=== PATIENT | female | born 1940 | race Caucasian/White ===

== ENCOUNTER → 2020-06-25 13:20 | Outpatient (BNVA) | payer MEDICARE, OTHER, SELFPAY | PROVIDERS: PCP Nurse Practitioner; Referring Provider Nurse Practitioner; Visit Provider Student in an Organized Health Care Education/Training Program | DX: M35.3 Polymyalgia rheumatica (principal); Z79.52 Long term (current) use of systemic steroids | CPT/HCPCS: 99202 ==

== ENCOUNTER → 2020-07-09 13:41 | Outpatient (BNVA) | payer MEDICARE, OTHER, SELFPAY | PROVIDERS: PCP Internal Medicine; Visit Provider Student in an Organized Health Care Education/Training Program | DX: M35.3 Polymyalgia rheumatica (principal); Z79.52 Long term (current) use of systemic steroids | CPT/HCPCS: 99212 ==

== ENCOUNTER → 2020-09-10 14:49 | Outpatient (BNVA) | payer MEDICARE, OTHER, SELFPAY | PROVIDERS: PCP Internal Medicine; Visit Provider Student in an Organized Health Care Education/Training Program | DX: M35.3 Polymyalgia rheumatica (principal); Z79.52 Long term (current) use of systemic steroids | CPT/HCPCS: Q3014 ==

== ENCOUNTER → 2020-11-28 11:04 | Outpatient (BNVA) | payer MEDICARE, OTHER, SELFPAY | PROVIDERS: Visit Provider Student in an Organized Health Care Education/Training Program | DX: M35.3 Polymyalgia rheumatica (principal); Z79.52 Long term (current) use of systemic steroids | CPT/HCPCS: 99212 ==

== ENCOUNTER → 2021-01-02 10:28 | Outpatient (BNVA) | payer MEDICARE, OTHER, SELFPAY | PROVIDERS: PCP Internal Medicine; Visit Provider Student in an Organized Health Care Education/Training Program | DX: M35.3 Polymyalgia rheumatica (principal); Z79.52 Long term (current) use of systemic steroids | CPT/HCPCS: 99212 ==

== ENCOUNTER → 2021-02-19 14:54 | Outpatient (BNVA) | payer MEDICARE, OTHER, SELFPAY | PROVIDERS: PCP Internal Medicine; Visit Provider Student in an Organized Health Care Education/Training Program | DX: M35.3 Polymyalgia rheumatica (principal); I48.91 Unspecified atrial fibrillation; I50.9 Heart failure, unspecified; I10 Essential (primary) hypertension; R94.5 Abnormal results of liver function studies; Z88.1 Allergy status to other antibiotic agents; Z91.041 Radiographic dye allergy status; Z79.52 Long term (current) use of systemic steroids; Z79.01 Long term (current) use of anticoagulants; Z79.899 Other long term (current) drug therapy | CPT/HCPCS: 99212 ==

== ENCOUNTER 2023-08-11 09:06 | Outpatient (REF) | payer MEDICARE, OTHER, SELFPAY ==
[2023-08-13 13:24] LABS: Myeloperoxidase Antibody <1.0 AI; Proteinase 3 PR3 Antibodies <1.0 AI
[2023-08-13 21:04] LABS: Prot Elec - Alpha1 0.3 g/dL (0.2-0.3); Prot Elec - Alpha2 0.9 g/dL (0.5-0.9); Prot Elec - Beta 1 0.5 g/dL (0.4-0.6); Prot Elec - Beta 2 0.5 g/dL (0.2-0.5); Prot Elec - Gamma 1.1 g/dL (0.8-1.7); Prot Elec - Total Protein 7.2 g/dL (6.1-8.1)
[2023-08-16 12:54] LABS: IgA 399 mg/dL (70-320); IgG 1122 mg/dL (600-1540); IgM 98 mg/dL (50-300)
== END 2023-08-11 09:07 | disposition home or self-care (01) ==
LOC: HO.LAB 09:06
PROVIDERS: PCP Internal Medicine; Visit Provider Student in an Organized Health Care Education/Training Program
DX: M35.3 Polymyalgia rheumatica (principal); R73.03 Prediabetes; I77.6 Arteritis, unspecified; R79.89 Other specified abnormal findings of blood chemistry; Z11.7 Encounter for testing for latent tuberculosis infection; Z11.59 Encounter for screening for other viral diseases; Z72.89 Other problems related to lifestyle; Z79.52 Long term (current) use of systemic steroids; Z79.01 Long term (current) use of anticoagulants; Z79.899 Other long term (current) drug therapy
CPT/HCPCS: 36415; 80053; 82085; 82550; 82784; 82977; 83036; 83615; 84165; 85025; 85652; 86021; 86140; 86200; 86334; 86431; 86481; 86704; 86706; 86709; 86803; 87340; 99212

== ENCOUNTER 2023-08-11 09:06 | Outpatient (AMB) | payer MEDICARE, OTHER, SELFPAY ==
--- NOTE | 2023-08-11 09:15 | A.OFFVIS_ITS ---
Intake Vital Signs 08/11/23 09:17 Height 5 ft 1.14 in Weight 204 lb 5.896 oz BMI 38.4 BP 136/64 Blood Pressure Location Rt brachial Position Sitting Pulse 53 Pulse Source Pulse Oximeter Pulse Oximetry (%) 98 Intake Visit Reasons: PMR Intake Note: Pt last seen by Dr Little on 02/19/21 presents today for consult to discuss PMR and concerns with prednisone. Saw PCP in June she was having trouble walking, joint pain, and elevated inflam markers. She is on prednsione 20mg. 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 Accompanied by: Spouse Allergies ciprofloxacin [Cipro] Allergy (Intermediate, Verified 08/11/23 09:19) rash CAT SCAN IV CONTRAST Allergy (Intermediate, Uncoded 08/11/23 09:19) rash Erythromycin Allergy (Intermediate, Uncoded 08/11/23 09:19) Rash Medication List - Last Reconciled 08/11/23 by Aleah Patricia MD alendronate 70 mg PO QWEEK atorvastatin 40 mg PO DAILY cetirizine (Zyrtec) 10 mg PO DAILY cholecalciferol (vitamin D3) 100 mcg PO DAILY ferrous sulfate (Feosol) 325 mg PO .twice a week furosemide 20 mg PO .three times a day lansoprazole 30 mg PO DAILY losartan 50 mg PO BID miscellaneous medical supply 1 ea miscellaneous DAILY potassium chloride ER (Klor-Con M) 20 mEq PO DAILY prednisone 20 mg PO DAILY warfarin 5 mg PO DAILY warfarin 2.5 mg PO Q OTHER DAY HPI HPI Comments History of Present Illness Details This is an 83-year-old female with PMR who presents for follow-up. She was last seen by Dr. Little in 2020. Patient was diagnosed with PMR around 2014. She went into remission in 2016 and had another flare in 2019. Off prednisone in 2020. Back in June patient started having pain and stiffness of her shoulders as well as her thighs associated with weakness and imbalance. Her labs showed elevated inflammatory markers and she was started on prednisone taper, starting at 40 mg daily. Repeat labs 07/27 showed persistence of elevated inflammatory markers and her PCP advised her to remain on prednisone 20 mg daily. She states that she feels more than 50% improved overall but continues to have bilateral thigh weakness, stiffness as well as generalized morning stiffness lasting 1-2 hours she denies any headaches. Denies blurry vision. Denies any fevers or rashes, no peripheral arthritis symptoms. Previous history by Dr. Little Pt states that she woke up one morning in December 2019 with pain and stiffness in her legs. Had labs done by her PCP which showed elevated ESR in the 80's. Pt was started on Prednisone 15mg daily with improvement in her symptoms and inflammatory markers. Pt is currently on 12.5mg Prednisone daily since April. No pain or stiffness in her shoulders but does have pain and stiffness in her hips and legs. States that she feels fatigued, shaky on her legs. Currently undergoing Physical Therapy twice per week and cardiac therapy twice weekly. Pt denies any visual disturbances, jaw claudication, temporal headaches. Patient has a history of heart failure and is currently being followed by Cardiology for aortic stenosis. No family history of RA or SLE LABS (01/27) CRP 12.8 ESR 16 (12/2020) ESR 14 CRP 1.2 (10/2020) CRP 11.15 ESR 20 (08/2020) CRP 0.9 ESR 12 (06/2020) CMP nl CBC nl Hgb 11.2 ESR 25 CRP 1.3 SPEP nl Immunofixation nl RF neg CCP weak pos PFSH Medical History custodial systemic steroid user Polymyalgia rheumatica Elevated LFTs Right knee meniscal tear Barretts esophagus Sleep apnea Osteopenia Congestive heart failure HTN (hypertension) Polymyalgia Atrial fibrillation Surgical History Aortic valve replaced Hx of tonsillectomy History of cardiac radiofrequency ablation Hx of oophorectomy Family History Father HTN (hypertension) CVD (cardiovascular disease) Mother Stroke Social History Alcohol intake: never Patient Tobacco Use Status: Never used Tobacco e-Cigarette/Vaping Use: Never Used Review of Systems Const Denies fever(s), Denies headache(s) and Reports weight gain Eyes Denies blurry vision ENT Denies headache(s) Musc Reports arthralgias, Reports muscle weakness and Reports stiffness Neuro Denies headache(s) Physical Exam Vital Signs: Last Vital Signs Pulse 53 08/11/23 09:17 BP 136/64 08/11/23 09:17 Pulse Ox 98 08/11/23 09:17 BMI result Body Mass Index 38.4 Const General: cooperative, healthy appearing and comfortable Nutritional Appearance: obese morbidly obese Orientation/consciousness: patient oriented x3 Limitations: no limitations HEENT Other: No temporal area tenderness bilaterally Head: Yes normocephalic and Yes atraumatic Resp Effort & Inspection: normal respiratory effort and able to speak in complete sentences Auscultation: clear to auscultation bilaterally Cardio Rate: regular rate Rhythm: abnormal rhythm Skin General skin exam: no rashes or lesions noted Neuro General: patient oriented x3 Extrem Other: Osteoarthritic changes of both hands with no active synovitis Normal range of motion of shoulders without pain Negative for rotator cuff provocative maneuvers bilaterally muscle strength 5/5 proximally upper extremities Hip flexor 4+ out of 5 bilaterally Negative straight leg raise test bilaterally Assessment & Plan Assessment & Plan (1) Polymyalgia rheumatica: Comment: dx around 2014 ttt PDN remission off PDN 2017 recurrence 2019 ttt PDN remission 05/2021 recurrene 06/2023 PDN restarted Code(s): M35.3 - Polymyalgia rheumatica Plan: This is an 83-year-old female with PMR who presents for follow-up. She was last seen by Dr. Little in 2020. Back in June patient started having PMR recurrence symptoms with elevated inflammatory markers and started on prednisone by her PCP with at least 50% improvement. Upon evaluation today patient continues to have some residua pain and stiffness. Mild weakness of hip flexors. Will check disease activity labs. Continue with prednisone 20 mg daily. Follow-up in 3 weeks (2) custodial systemic steroid user: Code(s): Z79.52 - custodial (current) use of systemic steroids Plan: On alendronate (3) Elevated LFTs: Code(s): R79.89 - Other specified abnormal findings of blood chemistry Plan: Will check Plan I spent 47 minutes reviewing patient's chart, evaluating patient, ordering diagnostic workup, counseling patient and documenting in the chart Orders: Orders Immunofixation Pnl, Serum Today M35.3 - Polymyalgia rheumatica Protein Electrophoresis, Serum Today M35.3 - Polymyalgia rheumatica Hemoglobin A1c Today R73.03 - Prediabetes Lactate Dehydrogenase Today M35.3 - Polymyalgia rheumatica Complete Blood Count Auto Diff Today M35.3 - Polymyalgia rheumatica Comprehensive Met. Panel Today M35.3 - Polymyalgia rheumatica C Reactive Protein Today M35.3 - Polymyalgia rheumatica ANCA Vasculitides Today I77.6 - Arteritis, unspecified Hepatitis A,B,C Profile Today Z11.59 - Encounter for screening for other viral diseases T Spot TB Today Z11.7 - Encounter for testing for latent tuberculosis infection Creatine Kinase Total Today M35.3 - Polymyalgia rheumatica Aldolase Today R79.89 - Other specified abnormal findings of blood chemistry Erythrocyte Sedimentation Rate Today M35.3 - Polymyalgia rheumatica Rheumatoid Factor Today M35.3 - Polymyalgia rheumatica Gamma Glutamyl Transpeptidase Today M35.3 - Polymyalgia rheumatica Cyclic Citrullinated Peptide Today M35.3 - Polymyalgia rheumatica Medications: New prednisone 20 mg PO DAILY 28 tabs 0RF Coding Level of Care Code Est Pt Level 5 (47517) Diagnoses Polymyalgia rheumatica M35.3 custodial systemic steroid user Z79.52 Elevated LFTs R79.89
[2023-08-11 09:17] VITALS: BP 136/64; PULSE 53; O2SAT 98; BMI 38.4
== END 2023-08-11 10:01 | disposition home or self-care (01) ==
PROVIDERS: PCP Internal Medicine; Visit Provider Student in an Organized Health Care Education/Training Program
DX: M35.3 Polymyalgia rheumatica (principal); Z79.52 Long term (current) use of systemic steroids; R79.89 Other specified abnormal findings of blood chemistry
CPT/HCPCS: 99215

== ENCOUNTER 2023-09-01 11:24 | Outpatient (AMB) | payer MEDICARE, OTHER, SELFPAY ==
--- NOTE | 2023-09-01 11:31 | A.OFFVIS_ITS ---
Intake Vital Signs 09/01/23 11:38 Height 5 ft 1.14 in Weight 205 lb 7.533 oz BMI 38.6 BP 160/72 H Blood Pressure Location Lt brachial Position Sitting Pulse 73 Pulse Source Pulse Oximeter Temp 97 F Temp Source Skin Pulse Oximetry (%) 97 Oxygen Delivery Method Room Air Intake Visit Reasons: PMR Intake Note: Patient last seen 08/11/23 presents today for follow up and test results. 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 by: Self / Same As Patient Allergies ciprofloxacin [Cipro] Allergy (Intermediate, Verified 09/01/23 11:39) rash CAT SCAN IV CONTRAST Allergy (Intermediate, Uncoded 09/01/23 11:39) rash Erythromycin Allergy (Intermediate, Uncoded 09/01/23 11:39) Rash Medication List - Last Reconciled 09/01/23 by Aleah Patricia MD alendronate 70 mg PO QWEEK atorvastatin 40 mg PO DAILY cetirizine (Zyrtec) 10 mg PO DAILY cholecalciferol (vitamin D3) 100 mcg PO DAILY ferrous sulfate (Feosol) 325 mg PO .twice a week furosemide 20 mg PO .three times a day lansoprazole 30 mg PO DAILY losartan 50 mg PO BID miscellaneous medical supply 1 ea miscellaneous DAILY potassium chloride ER (Klor-Con M) 20 mEq PO DAILY prednisone Take 3.5 tabs daily for 3 weeks then remain on 3 tabs daily warfarin 5 mg PO DAILY warfarin 2.5 mg PO Q OTHER DAY HPI HPI Comments History of Present Illness Details This is an 83-year-old female with PMR who presents for follow-up. On prednisone 20 mg daily. Feels better overall in terms of her mobility, joint pain and stiffness. Gets intermittent bilateral thigh and knee weakness. Feels that she has a ton of energy on prednisone. Would like to go down. Previous history by Dr. Little Pt states that she woke up one morning in December 2019 with pain and stiffness in her legs. Had labs done by her PCP which showed elevated ESR in the 's. Pt was started on Prednisone 15mg daily with improvement in her symptoms and inflammatory markers. Pt is currently on 12.5mg Prednisone daily since April. No pain or stiffness in her shoulders but does have pain and stiffness in her hips and legs. States that she feels fatigued, shaky on her legs. Currently undergoing Physical Therapy twice per week and cardiac therapy twice weekly. Pt denies any visual disturbances, jaw claudication, temporal headaches. Patient has a history of heart failure and is currently being followed by Cardiology for aortic stenosis. 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 Polymyalgia rheumatica Elevated LFTs Right knee meniscal tear Barretts esophagus Sleep apnea Osteopenia Congestive heart failure HTN (hypertension) Polymyalgia Atrial fibrillation Surgical History Aortic valve replaced Hx of tonsillectomy History of cardiac radiofrequency ablation Hx of oophorectomy Family History Father HTN (hypertension) CVD (cardiovascular disease) Mother Stroke Social History Alcohol intake: never Patient Tobacco Use Status: Never used Tobacco e-Cigarette/Vaping Use: Never Used Review of Systems Musc Denies arthralgias and Denies stiffness Physical Exam Const General: cooperative, healthy appearing and comfortable Nutritional Appearance: obese morbidly obese Orientation/consciousness: patient oriented x3 Limitations: no limitations HEENT Other: No temporal area tenderness bilaterally Head: Yes normocephalic and Yes atraumatic Resp Effort & Inspection: normal respiratory effort and able to speak in complete sentences Auscultation: clear to auscultation bilaterally Cardio Rate: regular rate Rhythm: abnormal rhythm Skin General skin exam: no rashes or lesions noted Neuro General: patient oriented x3 Extrem Other: Osteoarthritic changes of both hands with no active synovitis Normal range of motion of shoulders without pain Negative for rotator cuff provocative maneuvers bilaterally muscle strength 5/5 proximally upper extremities Hip flexor 5/5 bilaterally Negative straight leg raise test bilaterally Assessment & Plan Assessment & Plan (1) Polymyalgia rheumatica: Comment: dx around 2014 ttt PDN remission off PDN 2017 recurrence 2020 ttt PDN remission 05/2021 recurrene 06/2023 PDN restarted Code(s): M35.3 - Polymyalgia rheumatica Plan: This is an 83-year-old female with PMR who presents for follow-up. On prednisone 20 mg daily with significant symptomatic improvement. Check labs today Reduce prednisone to 17.5 mg daily for 3 weeks then 15 mg daily for 3 weeks Follow-up in 6 weeks. (2) Elevated LFTs: Code(s): R79.89 - Other specified abnormal findings of blood chemistry Plan: Will monitor periodically Plan I spent 22 minutes reviewing patient's chart, evaluating patient, ordering diagnostic workup, counseling patient and documenting in the chart Orders: Orders Complete Blood Count Auto Diff Today M35.3 - Polymyalgia rheumatica C Reactive Protein Today M35.3 - Polymyalgia rheumatica Complete Blood Count Auto Diff 6 Weeks M35.3 - Polymyalgia rheumatica Comprehensive Met. Panel 6 Weeks M35.3 - Polymyalgia rheumatica Erythrocyte Sedimentation Rate 6 Weeks M35.3 - Polymyalgia rheumatica Comprehensive Met. Panel Today M35.3 - Polymyalgia rheumatica Erythrocyte Sedimentation Rate Today M35.3 - Polymyalgia rheumatica C Reactive Protein 6 Weeks M35.3 - Polymyalgia rheumatica Medications: New prednisone Take 3.5 tabs daily for 3 weeks then remain on 3 tabs daily 137 tabs 0RF Discontinued prednisone Discontinued Reason: Doctor's Order 20 mg PO DAILY 28 tabs 0RF Coding Level of Care Code Est Pt Level 4 (98145) Diagnoses Polymyalgia rheumatica M35.3 Elevated LFTs R79.89
[2023-09-01 11:38] VITALS: BP 160/72; PULSE 73; TEMP 36.1; O2SAT 97; BMI 38.6
== END 2023-09-01 11:53 | disposition home or self-care (01) ==
PROVIDERS: PCP Internal Medicine; Visit Provider Student in an Organized Health Care Education/Training Program
DX: M35.3 Polymyalgia rheumatica (principal); R79.89 Other specified abnormal findings of blood chemistry
CPT/HCPCS: 99214

== ENCOUNTER → 2023-09-01 11:24 | Outpatient (BNVA) | payer MEDICARE, OTHER, SELFPAY | PROVIDERS: PCP Internal Medicine; Visit Provider Student in an Organized Health Care Education/Training Program | DX: R79.89 Other specified abnormal findings of blood chemistry (principal); M35.3 Polymyalgia rheumatica | CPT/HCPCS: 36415; 80053; 85025; 85652; 86140; 99212 ==

== ENCOUNTER 2023-09-01 11:58 | Outpatient (REF) | payer MEDICARE, OTHER, SELFPAY ==
[2023-09-01 13:01] LABS: MANUAL DIFF FLAG NO
[2023-09-01 13:03] LABS: Basophils Absolute Auto 0.1 X10*3/uL (0.0-0.2); Basophils Percent Auto 0.4 % (0-2); Eosinophils Absolute Auto 0.2 X10*3/uL (0.0-0.4); Eosinophils Percent Auto 1.2 % (0-4); Hematocrit 38.2 % (37.0-47.0); Hemoglobin 12.1 g/dl (12.0-16.0); Imm Gran Abs Auto 0.05 X10*3/uL (0.00-0.03); Imm Gran Pct Auto 0.4 % (0.0-0.4); Lymphocytes Absolute Auto 1.3 X10*3/uL (1.2-4.9); Lymphocytes Percent Auto 9.5 % (20-40); Mean Corpuscular HGB Conc 31.7 g/dl (31.0-35.0); Mean Corpuscular Hemoglobin 27.9 pg (27.0-33.0); Mean Platelet Volume 11.1 fL (9.4-12.3); Monocytes Percent Auto 7.1 % (2-11); Neutrophils Absolute Auto 11.1 x10*3/uL (2.0-8.3); Neutrophils Percent Auto 81.4 % (45-73); Platelet Count 186 X10*3/uL (160-400); Red Blood Count 4.34 X10*6/uL (4.20-5.50); Red Cell Distribution Width 17.5 % (11.0-16.0); White Blood Count 13.6 X10*3/uL (4.8-10.8)
[2023-09-01 13:35] LABS: Alanine Aminotransferase 33 U/L (0-31); Albumin Level 4.1 g/dL (3.5-5.0); Alkaline Phosphatase 39 U/L (39-117); Anion Gap 15 (12-20); Aspartate Amino Transferase 19 U/L (5-31); Bilirubin Total 1.1 mg/dL (0.0-1.0); Blood Urea Nitrogen 29 mg/dL (9-16); C Reactive Protein 0.88 mg/dL (< or = 0.50); Calcium 9.7 mg/dL (8.4-10.2); Carbon Dioxide 30 mmol/L (22-29); Chloride 103 mmol/L (96-108); Estimated Glomerular Filt Rate 59; Glucose Random 103 mg/dL (60-115); Potassium 4.4 mmol/L (3.3-5.1); Sodium 144 mmol/L (135-145); Total Protein 7.3 g/dL (6.5-8.0)
[2023-09-01 13:51] LABS: Erythrocyte Sedimentation Rate 23 MM/HR (0-20)
== END 2023-09-01 11:59 | disposition home or self-care (01) ==
LOC: HO.10HDL 11:58
PROVIDERS: Visit Provider Student in an Organized Health Care Education/Training Program
DX: Z13.89 Encounter for screening for other disorder (principal)
CPT/HCPCS: 36415; 80053; 85025; 85652; 86140

== ENCOUNTER 2023-10-18 11:15 | Outpatient (REF) | payer MEDICARE, OTHER, SELFPAY ==
[2023-10-18 14:16] LABS: MANUAL DIFF FLAG NO
[2023-10-18 14:29] LABS: Basophils Percent Auto 0.3 % (0-2); Eosinophils Absolute Auto 0.1 X10*3/uL (0.0-0.4); Hematocrit 38.5 % (37.0-47.0); Hemoglobin 12.1 g/dl (12.0-16.0); Imm Gran Pct Auto 0.8 % (0.0-0.4); Lymphocytes Absolute Auto 1.8 X10*3/uL (1.2-4.9); Lymphocytes Percent Auto 13.9 % (20-40); Mean Corpuscular HGB Conc 31.4 g/dl (31.0-35.0); Mean Corpuscular Hemoglobin 27.6 pg (27.0-33.0); Mean Corpuscular Volume 87.7 fL (80.0-98.0); Monocytes Absolute Auto 0.9 X10*3/uL (0.1-1.2); Monocytes Percent Auto 6.6 % (2-11); Neutrophils Percent Auto 77.4 % (45-73); Platelet Count 253 X10*3/uL (160-400); Red Blood Count 4.39 X10*6/uL (4.20-5.50); Red Cell Distribution Width 16.2 % (11.0-16.0); White Blood Count 12.9 X10*3/uL (4.8-10.8)
[2023-10-18 15:01] LABS: Alanine Aminotransferase 37 U/L (0-31); Alkaline Phosphatase 33 U/L (39-117); Anion Gap 12 (12-20); Aspartate Amino Transferase 30 U/L (5-31); Bilirubin Total 0.5 mg/dL (0.0-1.0); Blood Urea Nitrogen 26 mg/dL (9-16); C Reactive Protein 0.92 mg/dL (< or = 0.50); Calcium 9.4 mg/dL (8.4-10.2); Carbon Dioxide 32 mmol/L (22-29); Chloride 106 mmol/L (96-108); Estimated Glomerular Filt Rate > 60; Glucose Random 87 mg/dL (60-115); Potassium 3.7 mmol/L (3.3-5.1); Sodium 146 mmol/L (135-145); Total Protein 7.3 g/dL (6.5-8.0)
[2023-10-18 15:19] LABS: Erythrocyte Sedimentation Rate 30 MM/HR (0-20)
== END 2023-10-18 11:16 | disposition home or self-care (01) ==
LOC: HO.WFDLDS 11:15
PROVIDERS: Visit Provider Student in an Organized Health Care Education/Training Program
DX: M35.3 Polymyalgia rheumatica (principal)
CPT/HCPCS: 36415; 80053; 85025; 85652; 86140

== ENCOUNTER 2023-10-19 12:22 | Outpatient (AMB) | payer MEDICARE, OTHER, SELFPAY ==
--- NOTE | 2023-10-19 12:37 | A.OFFVIS_ITS ---
Intake Vital Signs 10/19/23 12:39 Height 5 ft 1 in Weight 209 lb 10.554 oz BMI 39.6 BP 164/72 H Blood Pressure Location Lt brachial Position Sitting Pulse 85 Pulse Source Pulse Oximeter Pulse Oximetry (%) 98 Oxygen Delivery Method Room Air Intake Visit Reasons: PMR Intake Note: Patient last seen 09/01/23 presents today for follow up and test results. 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 by: Self / Same As Patient Allergies ciprofloxacin [Cipro] Allergy (Intermediate, Verified 10/19/23 12:43) rash CAT SCAN IV CONTRAST Allergy (Intermediate, Uncoded 10/19/23 12:43) rash Erythromycin Allergy (Intermediate, Uncoded 10/19/23 12:43) Rash Medication List - Last Reconciled 10/19/23 by Aleah Patricia MD alendronate 70 mg PO QWEEK atorvastatin 40 mg PO DAILY cetirizine (Zyrtec) 10 mg PO DAILY cholecalciferol (vitamin D3) 100 mcg PO DAILY ferrous sulfate (Feosol) 325 mg PO .twice a week furosemide 20 mg PO .three times a day lansoprazole 30 mg PO DAILY losartan 50 mg PO BID miscellaneous medical supply 1 ea miscellaneous DAILY potassium chloride ER (Klor-Con M) 20 mEq PO DAILY prednisone 15 mg (3 x 5 mg) PO DAILY warfarin 5 mg PO DAILY warfarin 2.5 mg PO Q OTHER DAY HPI HPI Comments History of Present Illness Details This is an 83-year-old female with PMR who presents for follow-up. On prednisone 15 mg daily. Patient states that she continues to feel about the same. She continues to have bilateral thigh achiness. Generalized morning stiffness lasting 1 hour. She continues to gain weight. She feels very hungry on the prednisone. She had COVID infection about 2 weeks ago, got a home test and received Paxlovid. She was having a cough for a few days. She denies history of diverticulitis Previous history by Dr. Little Pt states that she woke up one morning in December 2019 with pain and stiffness in her legs. Had labs done by her PCP which showed elevated ESR in the 80's. Pt was started on Prednisone 15mg daily with improvement in her symptoms and inflammatory markers. Pt is currently on 12.5mg Prednisone daily since April. No pain or stiffness in her shoulders but does have pain and stiffness in her hips and legs. States that she feels fatigued, shaky on her legs. Currently undergoing Physical Therapy twice per week and cardiac therapy twice weekly. Pt denies any visual disturbances, jaw claudication, temporal headaches. Patient has a history of heart failure and is currently being followed by Cardiology for aortic stenosis. 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 Polymyalgia rheumatica Elevated LFTs Right knee meniscal tear Barretts esophagus Sleep apnea Osteopenia Congestive heart failure HTN (hypertension) Polymyalgia Atrial fibrillation Surgical History Aortic valve replaced Hx of tonsillectomy History of cardiac radiofrequency ablation Hx of oophorectomy Family History Father HTN (hypertension) CVD (cardiovascular disease) Mother Stroke Social History Alcohol intake: never Patient Tobacco Use Status: Never used Tobacco e-Cigarette/Vaping Use: Never Used Review of Systems [facility] [place] Reports arthralgias and Reports stiffness Physical Exam Vital Signs: Last Vital Signs Pulse 85 10/19/23 12:39 BP 164/72 H 10/19/23 12:39 Pulse Ox 98 10/19/23 12:39 Oxygen Delivery Method Room Air 10/19/23 12:39 BMI result Body Mass Index 39.6 Const General: cooperative, healthy appearing and comfortable Nutritional Appearance: obese morbidly obese Orientation/consciousness: patient oriented x3 Limitations: no limitations HEENT Other: No temporal area tenderness bilaterally Head: Yes normocephalic and Yes atraumatic Resp Effort & Inspection: normal respiratory effort and able to speak in complete sentences Auscultation: clear to auscultation bilaterally Cardio Rate: regular rate Rhythm: abnormal rhythm Skin General skin exam: no rashes or lesions noted Neuro General: patient oriented x3 Extrem Other: Osteoarthritic changes of both hands with no active synovitis Normal range of motion of shoulders without pain Negative for rotator cuff provocative maneuvers bilaterally muscle strength 5/5 proximally upper extremities Hip flexor 5/5 bilaterally Negative straight leg raise test bilaterally Assessment & Plan Assessment & Plan (1) Polymyalgia rheumatica: Comment: dx around 2014 ttt PDN remission off PDN 2016 recurrence 2019 ttt PDN remission 05/2021 recurrene 06/2023 PDN restarted Code(s): M35.3 - Polymyalgia rheumatica Plan: This is an 83-year-old female with PMR who presents for follow-up. On prednisone 15 mg daily, she continues to have generalized morning stiffness, bilateral thigh achiness. Inflammatory markers remain elevated. She is having side effects of prednisone such as weight gain Will need to add DMARDs. Can not use methotrexate due to transaminitis. Discussed risks and benefits of Kevzara. Patient agreed to proceed. Will start prior authorization for Kevzara Reduce prednisone to 12.5 mg daily Labs before next visit in 4 weeks (2) Elevated LFTs: Code(s): R79.89 - Other specified abnormal findings of blood chemistry Plan: Slight bump in LFTs, potentially related to COVID infection or Paxlovid Will monitor periodically Plan I spent 22 minutes reviewing patient's chart, evaluating patient, ordering diagnostic workup, counseling patient and documenting in the chart Orders: Orders Erythrocyte Sedimentation Rate 4 Weeks M35.3 - Polymyalgia rheumatica Comprehensive Met. Panel 4 Weeks M35.3 - Polymyalgia rheumatica Complete Blood Count Auto Diff 4 Weeks M35.3 - Polymyalgia rheumatica C Reactive Protein 4 Weeks M35.3 - Polymyalgia rheumatica Medications: New prednisone 12.5 mg (5 x 2.5 mg) PO DAILY 150 tabs 0RF Discontinued prednisone Discontinued Reason: Doctor's Order 15 mg (3 x 5 mg) PO DAILY 18 tabs 0RF Coding Level of Care Code Est Pt Level 4 (56966) Diagnoses Polymyalgia rheumatica M35.3 Elevated LFTs R79.89
[2023-10-19 12:39] VITALS: BP 164/72; PULSE 85; O2SAT 98; BMI 39.6
== END 2023-10-19 13:04 | disposition home or self-care (01) ==
PROVIDERS: PCP Internal Medicine; Visit Provider Student in an Organized Health Care Education/Training Program
DX: M35.3 Polymyalgia rheumatica (principal); R79.89 Other specified abnormal findings of blood chemistry
CPT/HCPCS: 99214

== ENCOUNTER → 2023-10-19 12:22 | Outpatient (BNVA) | payer MEDICARE, OTHER, SELFPAY | PROVIDERS: PCP Internal Medicine; Visit Provider Student in an Organized Health Care Education/Training Program | DX: M35.3 Polymyalgia rheumatica (principal); R79.89 Other specified abnormal findings of blood chemistry | CPT/HCPCS: 99212 ==

== ENCOUNTER 2023-11-19 10:35 | Outpatient (REF) | payer MEDICARE, OTHER, SELFPAY ==
[2023-11-19 14:38] LABS: MANUAL DIFF FLAG NO
[2023-11-19 14:42] LABS: Basophils Absolute Auto 0.1 X10*3/uL (0.0-0.2); Basophils Percent Auto 0.4 % (0-2); Eosinophils Absolute Auto 0.1 X10*3/uL (0.0-0.4); Eosinophils Percent Auto 1.2 % (0-4); Hematocrit 38.8 % (37.0-47.0); Hemoglobin 12.2 g/dl (12.0-16.0); Imm Gran Abs Auto 0.07 X10*3/uL (0.00-0.03); Imm Gran Pct Auto 0.6 % (0.0-0.4); Lymphocytes Absolute Auto 1.7 X10*3/uL (1.2-4.9); Lymphocytes Percent Auto 15.1 % (20-40); Mean Corpuscular HGB Conc 31.4 g/dl (31.0-35.0); Mean Corpuscular Hemoglobin 27.9 pg (27.0-33.0); Mean Corpuscular Volume 88.6 fL (80.0-98.0); Mean Platelet Volume 11.6 fL (9.4-12.3); Neutrophils Absolute Auto 8.4 x10*3/uL (2.0-8.3); Neutrophils Percent Auto 73.7 % (45-73); Platelet Count 221 X10*3/uL (160-400); Red Blood Count 4.38 X10*6/uL (4.20-5.50); White Blood Count 11.4 X10*3/uL (4.8-10.8)
[2023-11-19 15:21] LABS: Erythrocyte Sedimentation Rate 30 MM/HR (0-20)
[2023-11-19 15:33] LABS: Alanine Aminotransferase 33 U/L (0-31); Alkaline Phosphatase 44 U/L (39-117); Anion Gap 16 (12-20); Aspartate Amino Transferase 23 U/L (5-31); Bilirubin Total 0.8 mg/dL (0.0-1.0); Blood Urea Nitrogen 26 mg/dL (9-16); C Reactive Protein 1.24 mg/dL (< or = 0.50); Calcium 9.1 mg/dL (8.4-10.2); Carbon Dioxide 24 mmol/L (22-29); Chloride 108 mmol/L (96-108); Estimated Glomerular Filt Rate > 60; Glucose Random 99 mg/dL (60-115); Potassium 3.5 mmol/L (3.3-5.1); Sodium 144 mmol/L (135-145); Total Protein 7.5 g/dL (6.5-8.0)
== END 2023-11-19 10:36 | disposition home or self-care (01) ==
LOC: HO.WFDLDS 10:35
PROVIDERS: Visit Provider Student in an Organized Health Care Education/Training Program
DX: M35.3 Polymyalgia rheumatica (principal)
CPT/HCPCS: 36415; 80053; 85025; 85652; 86140

== ENCOUNTER 2023-11-24 13:25 | Outpatient (AMB) | payer MEDICARE, OTHER, SELFPAY ==
--- NOTE | 2023-11-24 13:32 | MHC.OFFVIS ---
Intake Vital Signs 11/24/23 13:33 Height 5 ft 1 in Weight 216 lb 4.375 oz BMI 40.9 BP 140/62 H Blood Pressure Location Rt brachial Position Sitting Pulse 83 Pulse Source Pulse Oximeter Pulse Oximetry (%) 98 Oxygen Delivery Method Room Air Intake Visit Reasons: PMR Intake Note: Patient last seen 10/19/23 presents today for follow up and test results. Patient denies pain, however reports stiffness, issues with balance, SOB following with Dr Vahid Liz Has not started hi wanted to discuss further concerned with warnings Service Person Required: No Accompanied by: Self / Same As Patient Allergies ciprofloxacin [Cipro] Allergy (Intermediate, Verified 11/24/23 13:35) rash CAT SCAN IV CONTRAST Allergy (Intermediate, Uncoded 11/24/23 13:35) rash Erythromycin Allergy (Intermediate, Uncoded 11/24/23 13:35) Rash Medication List - Last Reconciled 11/24/23 by Aleah Patricia MD alendronate 70 mg PO QWEEK atorvastatin 40 mg PO DAILY cetirizine (Zyrtec) 10 mg PO DAILY cholecalciferol (vitamin D3) 100 mcg PO DAILY ferrous sulfate (Feosol) 325 mg PO .twice a week furosemide 20 mg PO .three times a day Kevzara (sarilumab) 200 mg (1.14 mL) subcut Q2W NS lansoprazole 30 mg PO DAILY losartan 50 mg PO BID miscellaneous medical supply 1 ea miscellaneous DAILY potassium chloride ER (Klor-Con M) 20 mEq PO DAILY prednisone 12.5 mg (5 x 2.5 mg) PO DAILY warfarin 5 mg PO DAILY warfarin 2.5 mg PO Q OTHER DAY HPI HPI Comments History of Present Illness Details This is an 83-year-old female with PMR who presents for follow-up. On prednisone 12.5 mg daily. She states that she has not in any pain but remains stiff for 1 hour in the mornings. 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 She states that she has been having difficulty with her balance recently. Previous history by Dr. Little Pt states that she woke up one morning in December 2019 with pain and stiffness in her legs. Had labs done by her PCP which showed elevated ESR in the 's. Pt was started on Prednisone 15mg daily with improvement in her symptoms and inflammatory markers. Pt is currently on 12.5mg Prednisone daily since April. No pain or stiffness in her shoulders but does have pain and stiffness in her hips and legs. States that she feels fatigued, shaky on her legs. Currently undergoing Physical Therapy twice per week and cardiac therapy twice weekly. Pt denies any visual disturbances, jaw claudication, temporal headaches. Patient has a history of heart failure and is currently being followed by Cardiology for aortic stenosis. No family history of RA or SLE LABS (01/27) CRP 12.8 ESR 16 (12/2020) ESR 14 CRP 1.2 (10/2020) CRP 11.15 ESR 20 (08/2020) CRP 0.9 ESR 12 (06/2020) CMP nl CBC nl Hgb 11.2 ESR 25 CRP 1.3 SPEP nl Immunofixation nl RF neg CCP weak pos PFSH Medical History alf systemic steroid user Polymyalgia rheumatica Elevated LFTs Right knee meniscal tear Barretts esophagus Sleep apnea Osteopenia Congestive heart failure HTN (hypertension) Polymyalgia Atrial fibrillation Surgical History Aortic valve replaced Hx of tonsillectomy History of cardiac radiofrequency ablation Hx of oophorectomy Family History Father HTN (hypertension) CVD (cardiovascular disease) Mother Stroke Social History Alcohol intake: never Patient Tobacco Use Status: Never used Tobacco e-Cigarette/Vaping Use: Never Used Review of Systems Musc Reports stiffness Physical Exam Vital Signs: Last Vital Signs Pulse 83 11/24/23 13:33 BP 140/62 H 11/24/23 13:33 Pulse Ox 98 11/24/23 13:33 Oxygen Delivery Method Room Air 11/24/23 13:33 BMI result Body Mass Index 40.9 Const General: cooperative, healthy appearing and comfortable Nutritional Appearance: obese morbidly obese Orientation/consciousness: patient oriented x3 Limitations: no limitations HEENT Other: No temporal area tenderness bilaterally Head: Yes normocephalic and Yes atraumatic Resp Effort & Inspection: normal respiratory effort and able to speak in complete sentences Auscultation: clear to auscultation bilaterally Cardio Rhythm: abnormal rhythm Skin General skin exam: no rashes or lesions noted Neuro General: patient oriented x3 Extrem Other: Osteoarthritic changes of both hands with no active synovitis Normal range of motion of shoulders without pain Negative for rotator cuff provocative maneuvers bilaterally muscle strength 5/5 proximally upper extremities Hip flexor 4+/5 on the right Negative straight leg raise test bilaterally Assessment & Plan Assessment & Plan (1) Polymyalgia rheumatica: Comment: dx around 2014 ttt PDN remission off PDN 2016 recurrence 2019 ttt PDN remission 05/2021 recurrene 06/2023 PDN restarted Code(s): M35.3 - Polymyalgia rheumatica Plan: This is an 83-year-old female with PMR who presents for follow-up. On prednisone 12.5 mg daily, she continues to have generalized morning stiffness, Inflammatory markers remain elevated. 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 Last visit, we had discussed risks and benefits of Kevzara. Patient agreed to proceed and it was approved but patient was worried about side effects so she did not started yet. Today we had a long conversation about risks and benefits of Kevzara. At this point patient has developed multiple side effects of steroids and her disease remains active. Kevzara is the best choice. Patient agrees to start it. Remain on prednisone 12.5 mg daily until 2 weeks after Kevzara injection then stay on 10 mg daily Other options would be low-dose methotrexate or leflunomide with careful LFT monitoring. Alternatively hydroxychloroquine can be tried Labs before next visit in 4 weeks (2) Elevated LFTs: Code(s): R79.89 - Other specified abnormal findings of blood chemistry Plan: Minimal elevation. Will monitor Plan I spent 47 minutes reviewing patient's chart, evaluating patient, ordering diagnostic workup, counseling patient and documenting in the chart Orders: Orders Comprehensive Met. Panel 4 Weeks M35.3 - Polymyalgia rheumatica, R79.89 - Other specified abnormal findings of blood chemistry C Reactive Protein 4 Weeks M35.3 - Polymyalgia rheumatica, R79.89 - Other specified abnormal findings of blood chemistry Complete Blood Count Auto Diff 4 Weeks M35.3 - Polymyalgia rheumatica, R79.89 - Other specified abnormal findings of blood chemistry Erythrocyte Sedimentation Rate 4 Weeks M35.3 - Polymyalgia rheumatica, R79.89 - Other specified abnormal findings of blood chemistry Coding Level of Care Code Est Pt Level 5 (18748) Diagnoses Polymyalgia rheumatica M35.3 Elevated LFTs R79.89
[2023-11-24 13:33] VITALS: BP 140/62; PULSE 83; O2SAT 98; BMI 40.9
== END 2023-11-24 14:09 | disposition home or self-care (01) ==
PROVIDERS: PCP Internal Medicine; Visit Provider Student in an Organized Health Care Education/Training Program
DX: M35.3 Polymyalgia rheumatica (principal); R79.89 Other specified abnormal findings of blood chemistry
CPT/HCPCS: 99214

== ENCOUNTER → 2023-11-24 13:25 | Outpatient (BNVA) | payer MEDICARE, OTHER, SELFPAY | PROVIDERS: PCP Internal Medicine; Visit Provider Student in an Organized Health Care Education/Training Program | DX: M35.3 Polymyalgia rheumatica (principal); R79.89 Other specified abnormal findings of blood chemistry; Z79.52 Long term (current) use of systemic steroids; Z79.01 Long term (current) use of anticoagulants; Z79.899 Other long term (current) drug therapy | CPT/HCPCS: 99212 ==

== ENCOUNTER → 2023-12-03 12:48 | Outpatient (BNVA) | payer MEDICARE, OTHER, SELFPAY | PROVIDERS: PCP Internal Medicine; Visit Provider Student in an Organized Health Care Education/Training Program ==

== ENCOUNTER 2023-12-20 11:47 | Outpatient (REF) | payer MEDICARE, OTHER, SELFPAY ==
[2023-12-20 14:28] LABS: MANUAL DIFF FLAG NO
[2023-12-20 14:42] LABS: Basophils Absolute Auto 0.1 X10*3/uL (0.0-0.2); Basophils Percent Auto 1.1 % (0-2); Eosinophils Absolute Auto 0.1 X10*3/uL (0.0-0.4); Eosinophils Percent Auto 1.5 % (0-4); Hematocrit 39.8 % (37.0-47.0); Hemoglobin 12.8 g/dl (12.0-16.0); Imm Gran Abs Auto 0.02 X10*3/uL (0.00-0.03); Imm Gran Pct Auto 0.4 % (0.0-0.4); Lymphocytes Absolute Auto 0.9 X10*3/uL (1.2-4.9); Lymphocytes Percent Auto 17.2 % (20-40); Mean Corpuscular HGB Conc 32.2 g/dl (31.0-35.0); Mean Corpuscular Hemoglobin 28.6 pg (27.0-33.0); Mean Corpuscular Volume 88.8 fL (80.0-98.0); Mean Platelet Volume 11.8 fL (9.4-12.3); Monocytes Absolute Auto 0.7 X10*3/uL (0.1-1.2); Monocytes Percent Auto 12.8 % (2-11); Neutrophils Absolute Auto 3.6 x10*3/uL (2.0-8.3); Platelet Count 153 X10*3/uL (160-400); Red Blood Count 4.48 X10*6/uL (4.20-5.50); Red Cell Distribution Width 16.1 % (11.0-16.0); White Blood Count 5.4 X10*3/uL (4.8-10.8)
[2023-12-20 15:10] LABS: Alanine Aminotransferase 25 U/L (0-31); Albumin Level 4.2 g/dL (3.5-5.0); Alkaline Phosphatase 35 U/L (39-117); Anion Gap 14 (12-20); Aspartate Amino Transferase 22 U/L (5-31); Bilirubin Total 1.1 mg/dL (0.0-1.0); Blood Urea Nitrogen 28 mg/dL (9-16); C Reactive Protein < 0.10 mg/dL (< or = 0.50); Calcium 9.1 mg/dL (8.4-10.2); Carbon Dioxide 27 mmol/L (22-29); Chloride 107 mmol/L (96-108); Estimated Glomerular Filt Rate > 60; Glucose Random 103 mg/dL (60-115); Potassium 3.3 mmol/L (3.3-5.1); Sodium 145 mmol/L (135-145); Total Protein 7.3 g/dL (6.5-8.0)
[2023-12-20 15:49] LABS: Erythrocyte Sedimentation Rate 9 MM/HR (0-20)
== END 2023-12-20 11:48 | disposition home or self-care (01) ==
LOC: HO.WFDLDS 11:47
PROVIDERS: Visit Provider Student in an Organized Health Care Education/Training Program
DX: M35.3 Polymyalgia rheumatica (principal); R79.89 Other specified abnormal findings of blood chemistry
CPT/HCPCS: 36415; 80053; 85025; 85652; 86140

== ENCOUNTER 2023-12-23 10:26 | Outpatient (AMB) | payer MEDICARE, OTHER, SELFPAY ==
--- NOTE | 2023-12-23 10:30 | MHC.OFFVIS ---
Vital Signs 12/23/23 10:31 Height 5 ft 1 in Weight 219 lb 5.759 oz BMI 41.4 BP 138/72 Blood Pressure Location Rt brachial Position Sitting Pulse 73 Pulse Source Pulse Oximeter Pulse Oximetry (%) 97 Oxygen Delivery Method Room Air Intake Visit Reasons: PMR Intake Note: Patient last seen 11/24/23 presents today for follow up and test results. [place] Attendant Required: No Accompanied by: Spouse Allergies ciprofloxacin [Cipro] Allergy (Intermediate, Verified 12/23/23 10:39) rash CAT SCAN IV CONTRAST Allergy (Intermediate, Uncoded 12/23/23 10:39) rash Erythromycin Allergy (Intermediate, Uncoded 12/23/23 10:39) Rash Medication List - Last Reconciled 12/23/23 by Aleah Patricia MD atorvastatin 40 mg PO DAILY cetirizine (Zyrtec) 10 mg PO DAILY cholecalciferol (vitamin D3) 100 mcg PO DAILY furosemide 20 mg PO .three times a day Kevzara (sarilumab) 200 mg (1.14 mL) subcut Q2W NS lansoprazole 30 mg PO DAILY losartan 50 mg PO BID miscellaneous medical supply 1 ea miscellaneous DAILY potassium chloride ER (Klor-Con M) 20 mEq PO DAILY prednisone 10 mg PO DAILY prednisone 1 mg PO DAILY warfarin 5 mg PO DAILY warfarin 2.5 mg PO Q OTHER DAY HPI Comments Details: This is an 83-year-old female with PMR who presents for follow-up. She started Kevzara after last visit 4 weeks ago. Well tolerated with no side effects. She has lowered her prednisone to 10 mg daily 2 weeks ago. She continues to have some generalized fatigue. She has difficulty walking. Feels unsteady. Denies any dizziness or lightheadedness Previous history by Dr. Little Pt states that she woke up one morning in December 2019 with pain and stiffness in her legs. Had labs done by her PCP which showed elevated ESR in the 's. Pt was started on Prednisone 15mg daily with improvement in her symptoms and inflammatory markers. Pt is currently on 12.5mg Prednisone daily since April. No pain or stiffness in her shoulders but does have pain and stiffness in her hips and legs. States that she feels fatigued, shaky on her legs. Currently undergoing Physical Therapy twice per week and cardiac therapy twice weekly. Pt denies any visual disturbances, jaw claudication, temporal headaches. Patient has a history of heart failure and is currently being followed by Cardiology for aortic stenosis. 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 Polymyalgia rheumatica Elevated LFTs Right knee meniscal tear Barretts esophagus Sleep apnea Osteopenia Congestive heart failure HTN (hypertension) Polymyalgia Atrial fibrillation Surgical History Aortic valve replaced Hx of tonsillectomy History of cardiac radiofrequency ablation Hx of oophorectomy Family History Father HTN (hypertension) CVD (cardiovascular disease) Mother Stroke Social History Alcohol intake: never Patient Tobacco Use Status: Never used Tobacco e-Cigarette/Vaping Use: Never Used Review of Systems Musc Denies arthralgias, Denies joint swelling and Denies stiffness Neuro Details: Unsteadiness Physical Exam Vital Signs: Last Vital Signs Pulse 73 12/23/23 10:31 BP 138/72 12/23/23 10:31 Pulse Ox 97 12/23/23 10:31 Oxygen Delivery Method Room Air 12/23/23 10:31 BMI result Body Mass Index 41.4 Const General: cooperative, healthy appearing and comfortable Nutritional Appearance: obese morbidly obese Orientation/consciousness: patient oriented x3 Limitations: no limitations HEENT Other: No temporal area tenderness bilaterally Head: Yes normocephalic and Yes atraumatic Resp Effort & Inspection: normal respiratory effort and able to speak in complete sentences Auscultation: clear to auscultation bilaterally Cardio Rhythm: abnormal rhythm Skin General skin exam: no rashes or lesions noted Neuro General: patient oriented x3 Extrem Other: Osteoarthritic changes of both hands with no active synovitis Normal range of motion of shoulders without pain Negative for rotator cuff provocative maneuvers bilaterally , negative Speed's test bilaterally muscle strength 5/5 proximally upper extremities Hip flexor 5/5 on the right bilaterally Negative straight leg raise test bilaterally Mildly reduced sensation right leg compared to the left Normal position sense of toes bilaterally Assessment & Plan Assessment & Plan (1) Polymyalgia rheumatica: Comment: dx around 2014 ttt PDN remission off PDN 2016 recurrence 2019 ttt PDN remission 05/2021 recurrene 06/2023 PDN restarted Kevzara 11/2023 Code(s): M35.3 - Polymyalgia rheumatica Category: Medical Plan: This is an 83-year-old female with PMR who presents for follow-up. She started Kevzara about a month ago, well tolerated with no side effects. She is on prednisone 10 mg daily. Upon evaluation I do not see any signs of active PMR. She had minimal hip flexor weakness on exam before, it has resolved now. She is doing much better overall. Continue Kevzara 200 mg every other week. Reduce prednisone to 7.5 mg daily for 2 weeks then remain on 6 mg daily Labs before next visit in 6 weeks (2) Elevated LFTs: Code(s): R79.89 - Other specified abnormal findings of blood chemistry Category: Medical Plan: Normalized (3) Peripheral neuropathy: Code(s): G62.9 - Polyneuropathy, unspecified Category: Medical Qualifiers: Peripheral neuropathy type: polyneuropathy, unspecified Qualified Code(s): G62.9 - Polyneuropathy, unspecified Plan: Difficulty with her gait and balance over the last few months. Mildly reduced sensation right leg. Bilateral lower extremity EMG/NCV. Advised patient to establish care with a neurologist Plan I spent 27 minutes reviewing patient's chart, evaluating patient, ordering diagnostic workup, counseling patient and documenting in the chart Orders: Orders Comprehensive Met. Panel 4 Weeks Aleah Patricia MD M35.3 - Polymyalgia rheumatica C Reactive Protein 4 Weeks Aleah Patricia MD M35.3 - Polymyalgia rheumatica Erythrocyte Sedimentation Rate 4 Weeks Aleah Patricia MD M35.3 - Polymyalgia rheumatica NE electromyogram (EMG) Today Aleah Patricia MD G62.9 - Polyneuropathy, unspecified Complete Blood Count Auto Diff 4 Weeks Aleah Patricia MD M35.3 - Polymyalgia rheumatica Medications: New prednisone 1 mg PO DAILY 30 tabs 1RF Aleah Patricia MD Changed From prednisone 12.5 mg (5 x 2.5 mg) PO DAILY 150 tabs 0RF To prednisone 10 mg PO DAILY STARR Rolon Coding Level of Care Code Est Pt Level 4 (39945) Diagnoses Polymyalgia rheumatica M35.3 Elevated LFTs R79.89 Peripheral polyneuropathy G62.9 Peripheral neuropathy type: polyneuropathy, unspecified
[2023-12-23 10:31] VITALS: BP 138/72; PULSE 73; O2SAT 97; BMI 41.4
== END 2023-12-23 11:08 | disposition home or self-care (01) ==
PROVIDERS: PCP Internal Medicine; Visit Provider Student in an Organized Health Care Education/Training Program
DX: M35.3 Polymyalgia rheumatica (principal); R79.89 Other specified abnormal findings of blood chemistry; G62.9 Polyneuropathy, unspecified
CPT/HCPCS: 99214

== ENCOUNTER → 2023-12-23 10:26 | Outpatient (BNVA) | payer MEDICARE, OTHER, SELFPAY | PROVIDERS: PCP Internal Medicine; Visit Provider Student in an Organized Health Care Education/Training Program | DX: M35.3 Polymyalgia rheumatica (principal); G62.9 Polyneuropathy, unspecified; R79.89 Other specified abnormal findings of blood chemistry | CPT/HCPCS: 99212 ==

== ENCOUNTER 2024-01-14 10:48 | Outpatient (REF) | payer MEDICARE, OTHER, SELFPAY ==
--- NOTE | 2024-01-14 10:55 | EMG_ITS ---
Chief complaint: Worsening gait and leg weakness. Chronic leg pain, diagnosed PMR since 2019. Chronic steroids. On Kevzara.. History of AFib on Coumadin. Nondiabetic. Reason for referral: Evaluate for neuropathy Referred by: Dr. Patricia Procedure done: Bilateral lower extremity NCS/EMG Precautions and/or limitations: On Coumadin The limb temperature was monitored continuously and remained between 32-36 degrees C during the performance of the NCS. Nerve Conduction Studies Anti Sensory Summary Table ?Stim Site NR Onset (ms) Norm Onset (ms) Peak (ms) Norm Peak (ms) O-P Amp (?V) Norm O-P Amp Site1 Site2 Delta-0 (ms) Dist (cm) Andry (m/s) Norm Andry (m/s) Left Sural Anti Sensory (Lat Mall) Calf ? 3.0 3.7 <4.0 3.0 >5.0 Calf Lat Mall 3.0 14.0 47 Site 2 ? 3.1 3.7 2.0 Right Sural Anti Sensory (Lat Mall) Calf ? 2.6 4.0 <4.0 17.5 >5.0 Calf Lat Mall 2.6 14.0 54 Motor Summary Table ?Stim Site NR Onset (ms) Norm Onset (ms) O-P Amp (mV) Norm O-P Amp iAmp (mV) Amp (1st) (%) Site1 Site2 Delta-0 (ms) Dist (cm) Andry (m/s) Norm Andry (m/s) Right Peroneal Motor (Ext Dig Brev) Ankle ? 5.0 <4.0 1.8 >2.5 2.3 100.0 Ankle Ext Dig Brev 5.0 0.0 B Fib ? 10.3 1.9 2.4 105.6 B Fib Ankle 5.3 28.0 53 >40 Poplt ? 11.1 2.0 2.5 111.1 Poplt B Fib 0.8 6.0 75 >40 Left Tibial Motor (Abd Bang Brev) Ankle ? 4.5 <5 7.0 >2.5 10.4 100.0 Ankle Abd Bang Brev 4.5 0.0 Knee ? 12.0 1.1 1.9 15.7 Knee Ankle 7.5 33.0 44 >40 Right Tibial Motor (Abd Bang Brev) Ankle ? 5.5 <5 7.0 >2.5 8.7 100.0 Ankle Abd Bang Brev 5.5 0.0 Knee ? 11.5 1.3 1.7 18.6 Knee Ankle 6.0 37.0 62 >40 EMG ?Side Muscle Nerve Root Ins Act Fibs Psw Amp Dur Poly Recrt Int Pat Comment Right AbdHallucis MedPlantar S1-2 Nml Nml Nml Nml Nml 0 Nml Complete Right AntTibialis Dp Br Peron L4-5 Nml Nml Nml Nml Nml 0 Nml Complete Right MedGastroc Tibial S1-2 Nml Nml Nml Nml Nml 0 Nml Complete Right VastusMed Femoral L2-4 Nml Nml Nml Nml Nml 0 Nml Complete Right Peroneus Long Sup Br Peron L5-S1 Nml Nml Nml Nml Nml 0 Nml Complete Left AbdHallucis MedPlantar S1-2 Nml Nml Nml Nml Nml 0 Nml Complete Left AntTibialis Dp Br Peron L4-5 Nml Nml Nml Nml Nml 0 Nml Complete Left MedGastroc Tibial S1-2 Nml Nml Nml Nml Nml 0 Nml Complete Left VastusMed Femoral L2-4 Nml Nml Nml Nml Nml 0 Nml Complete Left Peroneus Long Sup Br Peron L5-S1 Nml Nml Nml Nml Nml 0 Nml Complete FINDINGS: Right peroneal nerve showed prolonged distal latency, small amplitude and slow conduction velocity. Right tibial nerve showed prolonged distal latency, drop in amplitude proximally and normal conduction velocity. Left tibial nerve showed normal distal latency, drop in amplitude proximally and normal conduction velocity. Right sural within normal. Left sural normal peak latencies but small amplitude. Concentric needle EMG was performed in selected muscles of the bilateral lower extremity. Study did not reveal signs of electric abnormalities as shown in the table below. No myopathic looking amplitudes. No myotonic discharges. Limitation: Unable to needle lumbar paraspinals due to Coumadin. IMPRESSION: 1. This is an abnormal study. 2. Given sural SNAPs were present, there is low likelihood that this is peripheral neuropathy. 3. Abnormal peroneal and tibial CMAPs suggest lumbar radiculopathy L5-S1. 4. Needle EMG findings do not show signs of myopathy. CLINICAL COMMENT: Further clinical correlation recommended. Thank you for your kind referral. Oly Clayton MD, JUAN R Board Certified, [place] [employer] and Rehabilitation (ABPMR) Board Certified, [place] [employer] Electrodiagnostic Medicine (ABEM) CODIN [id number] x2 MTDD
== END 2024-01-14 10:49 | disposition home or self-care (01) ==
LOC: HO.NEURO 10:48
PROVIDERS: PCP Internal Medicine; Visit Provider Student in an Organized Health Care Education/Training Program
DX: R29.898 Other symptoms and signs involving the musculoskeletal system (principal); G62.9 Polyneuropathy, unspecified
CPT/HCPCS: 95886; 95909

== ENCOUNTER → 2024-01-14 10:55 | Outpatient (BNV) | payer MEDICARE, OTHER, SELFPAY | PROVIDERS: PCP Internal Medicine; Visit Provider Physical Medicine & Rehabilitation | DX: M54.16 Radiculopathy, lumbar region (principal) | CPT/HCPCS: 95886; 95909 ==

== ENCOUNTER 2024-01-17 09:15 | Outpatient (REF) | payer MEDICARE, OTHER, SELFPAY ==
[2024-01-17 11:31] LABS: MANUAL DIFF FLAG NO
[2024-01-17 11:36] LABS: Basophils Absolute Auto 0.1 X10*3/uL (0.0-0.2); Basophils Percent Auto 1.2 % (0-2); Eosinophils Absolute Auto 0.1 X10*3/uL (0.0-0.4); Eosinophils Percent Auto 2.1 % (0-4); Hematocrit 39.2 % (37.0-47.0); Hemoglobin 12.6 g/dl (12.0-16.0); Imm Gran Abs Auto 0.01 X10*3/uL (0.00-0.03); Imm Gran Pct Auto 0.2 % (0.0-0.4); Lymphocytes Absolute Auto 1.2 X10*3/uL (1.2-4.9); Lymphocytes Percent Auto 27.9 % (20-40); Mean Corpuscular HGB Conc 32.1 g/dl (31.0-35.0); Mean Corpuscular Volume 90.1 fL (80.0-98.0); Mean Platelet Volume 11.9 fL (9.4-12.3); Monocytes Absolute Auto 0.7 X10*3/uL (0.1-1.2); Monocytes Percent Auto 16.5 % (2-11); Neutrophils Absolute Auto 2.2 x10*3/uL (2.0-8.3); Neutrophils Percent Auto 52.1 % (45-73); Platelet Count 159 X10*3/uL (160-400); Red Blood Count 4.35 X10*6/uL (4.20-5.50); Red Cell Distribution Width 16.5 % (11.0-16.0); White Blood Count 4.3 X10*3/uL (4.8-10.8)
[2024-01-17 12:12] LABS: Alanine Aminotransferase 26 U/L (0-31); Albumin Level 4.1 g/dL (3.5-5.0); Alkaline Phosphatase 31 U/L (39-117); Anion Gap 16 (12-20); Aspartate Amino Transferase 26 U/L (5-31); Bilirubin Total 1.1 mg/dL (0.0-1.0); Blood Urea Nitrogen 23 mg/dL (9-16); C Reactive Protein < 0.10 mg/dL (< or = 0.50); Calcium 9.2 mg/dL (8.4-10.2); Carbon Dioxide 27 mmol/L (22-29); Chloride 106 mmol/L (96-108); Estimated Glomerular Filt Rate 58; Glucose Random 101 mg/dL (60-115); Potassium 3.7 mmol/L (3.3-5.1); Sodium 145 mmol/L (135-145); Total Protein 6.6 g/dL (6.5-8.0)
[2024-01-17 12:16] LABS: Erythrocyte Sedimentation Rate 5 MM/HR (0-20)
== END 2024-01-17 09:16 | disposition home or self-care (01) ==
LOC: HO.WFDLDS 09:15
PROVIDERS: Visit Provider Student in an Organized Health Care Education/Training Program
DX: M35.3 Polymyalgia rheumatica (principal)
CPT/HCPCS: 36415; 80053; 85025; 85652; 86140

== ENCOUNTER 2024-01-20 09:06 | Outpatient (AMB) | payer MEDICARE, OTHER, SELFPAY ==
--- NOTE | 2024-01-20 09:21 | MHC.OFFVIS ---
Vital Signs 01/20/24 09:22 Height 5 ft 1 in Weight 220 lb 7.396 oz BMI 41.7 BP 132/66 Blood Pressure Location Rt brachial Position Sitting Pulse 54 Pulse Source Pulse Oximeter Pulse Oximetry (%) 98 Oxygen Delivery Method Room Air Intake Visit Reasons: PMR Intake Note: Patient last seen 12/23/23, presents today for follow up. Currently on prednisone 6mg daily. 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 Accompanied by: Self / Same As Patient Allergies ciprofloxacin [Cipro] Allergy (Intermediate, Verified 01/20/24 09:29) rash CAT SCAN IV CONTRAST Allergy (Intermediate, Uncoded 01/20/24 09:29) rash Erythromycin Allergy (Intermediate, Uncoded 01/20/24 09:29) Rash Medication List - Last Reconciled 01/20/24 by Aleah Patricia MD atorvastatin 40 mg PO DAILY cetirizine (Zyrtec) 10 mg PO DAILY cholecalciferol (vitamin D3) 100 mcg PO DAILY furosemide 20 mg PO .three times a day Kevzara (sarilumab) 200 mg (1.14 mL) subcut Q2W NS lansoprazole 30 mg PO DAILY losartan 50 mg PO BID miscellaneous medical supply 1 ea miscellaneous DAILY potassium chloride ER (Klor-Con M) 20 mEq PO DAILY prednisone 1 mg PO DAILY prednisone 5 mg PO DAILY warfarin 5 mg PO DAILY warfarin 2.5 mg PO Q OTHER DAY HPI Comments Details: This is an 83-year-old female with PMR who presents for follow-up. She is on Kevzara every other week and prednisone 6 mg daily. She gets some minimal bruising at the Kevzara injection site. She continues to have similar symptoms. She continues to have bilateral leg weakness and some imbalance with walking. Generalized fatigue. No back pain Previous history by Dr. Little Pt states that she woke up one morning in December 2019 with pain and stiffness in her legs. Had labs done by her PCP which showed elevated ESR in the 's. Pt was started on Prednisone 15mg daily with improvement in her symptoms and inflammatory markers. Pt is currently on 12.5mg Prednisone daily since April. No pain or stiffness in her shoulders but does have pain and stiffness in her hips and legs. States that she feels fatigued, shaky on her legs. Currently undergoing Physical Therapy twice per week and cardiac therapy twice weekly. Pt denies any visual disturbances, jaw claudication, temporal headaches. Patient has a history of heart failure and is currently being followed by Cardiology for aortic stenosis. 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 Polymyalgia rheumatica Elevated LFTs Right knee meniscal tear Barretts esophagus Sleep apnea Osteopenia Congestive heart failure HTN (hypertension) Polymyalgia Atrial fibrillation Surgical History Aortic valve replaced Hx of tonsillectomy History of cardiac radiofrequency ablation Hx of oophorectomy Family History Father HTN (hypertension) CVD (cardiovascular disease) Mother Stroke Social History Alcohol intake: never Patient Tobacco Use Status: Never used Tobacco e-Cigarette/Vaping Use: Never Used Review of Systems Musc Denies arthralgias, Denies joint swelling, Reports muscle weakness and Denies stiffness Neuro Details: Unsteadiness Physical Exam Vital Signs: Last Vital Signs Pulse 54 01/20/24 09:22 BP 132/66 01/20/24 09:22 Pulse Ox 98 01/20/24 09:22 Oxygen Delivery Method Room Air 01/20/24 09:22 BMI result Body Mass Index 41.7 Const General: cooperative, healthy appearing and comfortable Nutritional Appearance: obese morbidly obese Orientation/consciousness: patient oriented x3 Limitations: no limitations HEENT Other: No temporal area tenderness bilaterally Head: Yes normocephalic and Yes atraumatic Resp Effort & Inspection: normal respiratory effort and able to speak in complete sentences Auscultation: clear to auscultation bilaterally Cardio Rhythm: abnormal rhythm Skin General skin exam: no rashes or lesions noted Neuro General: patient oriented x3 Extrem Other: Osteoarthritic changes of both hands with no active synovitis Normal range of motion of shoulders without pain Negative for rotator cuff provocative maneuvers bilaterally , negative Speed's test bilaterally muscle strength 5/5 proximally upper extremities Hip flexor 5/5 on the right bilaterally Negative straight leg raise test bilaterally Normal position sense of toes bilaterally Assessment & Plan Assessment & Plan (1) Polymyalgia rheumatica: Comment: dx around 2014 ttt PDN remission off PDN 2017 recurrence 2019 ttt PDN remission 05/2021 recurrene 06/2023 PDN restarted Kevzara 11/2023 effective Code(s): M35.3 - Polymyalgia rheumatica Category: Medical Plan: This is an 83-year-old female with PMR who presents for follow-up. She is on Kevzara 200 mg every other week and prednisone 6 mg daily. Her PMR is in remission. Continue to taper prednisone. Taper by 1 mg every 3 weeks. 5 mg tomorrow Continue Kevzara 200 mg every other week Labs before next visit in 6 weeks (2) Bilateral leg weakness: Code(s): R29.898 - Other symptoms and signs involving the musculoskeletal system Category: Medical Plan: Bilateral leg weakness and low threshold for fatigue, poor balance, bilateral lower extremity EMG/NCV showed L5-S1 radiculopathy. 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 Category: Medical Plan: On alendronate Plan I spent 27 minutes reviewing patient's chart, evaluating patient, ordering diagnostic workup, counseling patient and documenting in the chart Orders: Orders MR lumbar spine wo con Today M54.16 - Radiculopathy, lumbar region PT Evaluation and Treatment Today R26.89 - Other abnormalities of gait and mobility, R29.898 - Other symptoms and signs involving the musculoskeletal system Coding Level of Care Code Est Pt Level 4 (96203) Complex EM visit Add On G2211 Diagnoses Polymyalgia rheumatica M35.3 Bilateral leg weakness R29.898 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
[2024-01-20 09:22] VITALS: BP 132/66; PULSE 54; O2SAT 98; BMI 41.7
== END 2024-01-20 10:08 | disposition home or self-care (01) ==
PROVIDERS: PCP Internal Medicine; Visit Provider Student in an Organized Health Care Education/Training Program
DX: M35.3 Polymyalgia rheumatica (principal); R29.898 Other symptoms and signs involving the musculoskeletal system; Z79.52 Long term (current) use of systemic steroids
CPT/HCPCS: 99214; G2211

== ENCOUNTER → 2024-01-20 09:06 | Outpatient (BNVA) | payer MEDICARE, OTHER, SELFPAY | PROVIDERS: PCP Internal Medicine; Visit Provider Student in an Organized Health Care Education/Training Program | DX: M35.3 Polymyalgia rheumatica (principal); R29.898 Other symptoms and signs involving the musculoskeletal system; Z79.52 Long term (current) use of systemic steroids | CPT/HCPCS: 99212 ==

== ENCOUNTER 2024-02-24 15:30 | Outpatient (REF) | payer MEDICARE, OTHER, SELFPAY ==
[2024-02-24 17:28] LABS: MANUAL DIFF FLAG NO
[2024-02-24 17:33] LABS: Basophils Absolute Auto 0.1 X10*3/uL (0.0-0.2); Basophils Percent Auto 0.8 % (0-2); Eosinophils Percent Auto 0.3 % (0-4); Hematocrit 40.2 % (37.0-47.0); Hemoglobin 13.2 g/dl (12.0-16.0); Imm Gran Abs Auto 0.02 X10*3/uL (0.00-0.03); Imm Gran Pct Auto 0.3 % (0.0-0.4); Lymphocytes Absolute Auto 0.7 X10*3/uL (1.2-4.9); Lymphocytes Percent Auto 10.5 % (20-40); Mean Corpuscular HGB Conc 32.8 g/dl (31.0-35.0); Mean Corpuscular Hemoglobin 29.8 pg (27.0-33.0); Mean Corpuscular Volume 90.7 fL (80.0-98.0); Mean Platelet Volume 11.9 fL (9.4-12.3); Monocytes Absolute Auto 0.6 X10*3/uL (0.1-1.2); Monocytes Percent Auto 8.4 % (2-11); Neutrophils Absolute Auto 5.2 x10*3/uL (2.0-8.3); Neutrophils Percent Auto 79.7 % (45-73); Platelet Count 154 X10*3/uL (160-400); Red Blood Count 4.43 X10*6/uL (4.20-5.50); Red Cell Distribution Width 15.4 % (11.0-16.0); White Blood Count 6.6 X10*3/uL (4.8-10.8)
[2024-02-24 17:57] LABS: Alanine Aminotransferase 34 U/L (0-31); Albumin Level 4.4 g/dL (3.5-5.0); Alkaline Phosphatase 41 U/L (39-117); Anion Gap 14 (12-20); Aspartate Amino Transferase 27 U/L (5-31); Bilirubin Total 1.2 mg/dL (0.0-1.0); Blood Urea Nitrogen 25 mg/dL (9-16); C Reactive Protein < 0.04 mg/dL (< or = 0.50); Calcium 9.6 mg/dL (8.4-10.2); Carbon Dioxide 30 mmol/L (22-29); Chloride 105 mmol/L (96-108); Estimated Glomerular Filt Rate 56; Glucose Random 123 mg/dL (60-115); Potassium 3.6 mmol/L (3.3-5.1); Sodium 145 mmol/L (135-145)
[2024-02-24 18:14] LABS: Erythrocyte Sedimentation Rate 3 MM/HR (0-20)
== END 2024-02-24 15:31 | disposition home or self-care (01) ==
LOC: HO.WFDLDS 15:30
PROVIDERS: Visit Provider Student in an Organized Health Care Education/Training Program
DX: M35.3 Polymyalgia rheumatica (principal)
CPT/HCPCS: 36415; 80053; 85025; 85652; 86140

== ENCOUNTER 2024-02-29 12:20 | Outpatient (AMB) | payer MEDICARE, OTHER, SELFPAY ==
[2024-02-29 12:41] VITALS: BP 130/74; PULSE 60; O2SAT 98; BMI 41.9
--- NOTE | 2024-02-29 12:41 | A.OFFVIS_ITS ---
Vital Signs 02/29/24 12:41 Height 5 ft 1 in Weight 222 lb 0.088 oz BMI 41.9 BP 130/74 Blood Pressure Location Lt brachial Position Sitting Pulse 60 Pulse Source Pulse Oximeter Pulse Oximetry (%) 98 Oxygen Delivery Method Room Air Intake Visit Reasons: PMR/cm Intake Note: Patient is here to follow up on PMR/cm, last seen on 01/20/2024. 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 Accompanied by: Self / Same As Patient Allergies ciprofloxacin [Cipro] Allergy (Intermediate, Verified 02/29/24 12:46) rash CAT SCAN IV CONTRAST Allergy (Intermediate, Uncoded 02/29/24 12:46) rash Erythromycin Allergy (Intermediate, Uncoded 02/29/24 12:46) Rash Medication List - Last Reconciled 02/29/24 by Aleah Patricia MD atorvastatin 40 mg PO DAILY cetirizine (Zyrtec) 10 mg PO DAILY cholecalciferol (vitamin D3) 100 mcg PO DAILY furosemide 20 mg PO .three times a day Kevzara (sarilumab) 200 mg (1.14 mL) subcut Q2W NS lansoprazole 30 mg PO DAILY losartan 50 mg PO BID miscellaneous medical supply 1 ea miscellaneous DAILY potassium chloride ER (Klor-Con M) 20 mEq PO DAILY prednisone Take 3 tabs by mouth daily for 3 weeks, 2 tabs daily for 3 weeks, 1 tab daily for 3 weeks then stop prednisone 1 mg PO DAILY warfarin 5 mg PO DAILY warfarin 2.5 mg PO Q OTHER DAY HPI Comments Details: This is an 83-year-old female with PMR who presents for follow-up. She is on Kevzara every other week and prednisone 4 mg daily. She continues to have similar symptoms. She continues to have bilateral leg weakness and some imbalance with walking. Generalized fatigue. No back pain Previous history by Dr. Little Pt states that she woke up one morning in December 2019 with pain and stiffness in her legs. Had labs done by her PCP which showed elevated ESR in the 's. Pt was started on Prednisone 15mg daily with improvement in her symptoms and inflammatory markers. Pt is currently on 12.5mg Prednisone daily since April. No pain or stiffness in her shoulders but does have pain and stiffness in her hips and legs. States that she feels fatigued, shaky on her legs. Currently undergoing Physical Therapy twice per week and cardiac therapy twice weekly. Pt denies any visual disturbances, jaw claudication, temporal headaches. Patient has a history of heart failure and is currently being followed by Cardiology for aortic stenosis. 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 Polymyalgia rheumatica Elevated LFTs Right knee meniscal tear Barretts esophagus Sleep apnea Osteopenia Congestive heart failure HTN (hypertension) Polymyalgia Atrial fibrillation Surgical History Aortic valve replaced Hx of tonsillectomy History of cardiac radiofrequency ablation Hx of oophorectomy Family History Father HTN (hypertension) CVD (cardiovascular disease) Mother Stroke Social History Alcohol intake: never Patient Tobacco Use Status: Never used Tobacco e-Cigarette/Vaping Use: Never Used Review of Systems Musc Denies arthralgias, Denies joint swelling, Reports muscle weakness and Denies stiffness Neuro Details: Unsteadiness Physical Exam Vital Signs: Last Vital Signs Pulse 60 02/29/24 12:41 BP 130/74 02/29/24 12:41 Pulse Ox 98 02/29/24 12:41 Oxygen Delivery Method Room Air 02/29/24 12:41 BMI result Body Mass Index 41.9 Const General: cooperative, healthy appearing and comfortable Nutritional Appearance: obese morbidly obese Orientation/consciousness: patient oriented x3 Limitations: no limitations HEENT Other: No temporal area tenderness bilaterally Head: Yes normocephalic and Yes atraumatic Resp Effort & Inspection: normal respiratory effort and able to speak in complete sentences Cardio Rhythm: abnormal rhythm Skin General skin exam: no rashes or lesions noted Neuro General: patient oriented x3 Extrem Other: Osteoarthritic changes of both hands with no active synovitis Normal range of motion of shoulders without pain Negative for rotator cuff provocative maneuvers bilaterally , negative Speed's test bilaterally muscle strength 5/5 proximally upper extremities Hip flexor 5/5 on the right bilaterally Negative straight leg raise test bilaterally Normal position sense of toes bilaterally Assessment & Plan Assessment & Plan (1) Polymyalgia rheumatica: Comment: dx around 2014 ttt PDN remission off PDN 2017 recurrence 2019 ttt PDN remission 05/2021 recurrene 06/2023 PDN restarted Kevzara 11/2023 effective Code(s): M35.3 - Polymyalgia rheumatica Category: Medical Plan: This is an 83-year-old female with PMR who presents for follow-up. She is on Kevzara 200 mg every other week and prednisone 4 mg daily. Her PMR is in remission. Continue to taper prednisone. Taper by 1 mg every 2 weeks. 3 mg tomorrow Continue Kevzara 200 mg every other week Labs before next visit in 2 months (2) Bilateral leg weakness: Code(s): R29.898 - Other symptoms and signs involving the musculoskeletal system Category: Medical Plan: Bilateral leg weakness and low threshold for fatigue, poor balance, bilateral lower extremity EMG/NCV showed L5-S1 radiculopathy. L-spine MRI shows moderate to severe neural foraminal stenosis. Will refer patient to spine surgeon. 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 Panel 2 Months M35.3 - Polymyalgia rheumatica C Reactive Protein 2 Months M35.3 - Polymyalgia rheumatica Erythrocyte Sedimentation Rate 2 Months M35.3 - Polymyalgia rheumatica Referrals Neuro Spine Referral M48.061 - Spinal stenosis, lumbar region without neurogenic claudication Medications: Refilled prednisone 1 mg PO DAILY 60 tabs 1RF Coding Level of Care Code Est Pt Level 4 (56189) Diagnoses Polymyalgia rheumatica M35.3 Bilateral leg weakness R29.898 half-way systemic steroid user Z79.52
== END 2024-02-29 13:24 | disposition home or self-care (01) ==
PROVIDERS: PCP Internal Medicine; Visit Provider Student in an Organized Health Care Education/Training Program
DX: M35.3 Polymyalgia rheumatica (principal); R29.898 Other symptoms and signs involving the musculoskeletal system; Z79.52 Long term (current) use of systemic steroids
CPT/HCPCS: 99214

== ENCOUNTER → 2024-02-29 12:20 | Outpatient (BNVA) | payer MEDICARE, OTHER, SELFPAY | PROVIDERS: PCP Internal Medicine; Visit Provider Student in an Organized Health Care Education/Training Program | DX: M35.3 Polymyalgia rheumatica (principal); R29.898 Other symptoms and signs involving the musculoskeletal system; Z79.52 Long term (current) use of systemic steroids; Z79.899 Other long term (current) drug therapy | CPT/HCPCS: 99212 ==

== ENCOUNTER 2024-03-20 13:50 | Outpatient (AMB) | payer MEDICARE, OTHER, SELFPAY ==
--- NOTE | 2024-03-20 13:52 | HO.SPINEOV ---
Intake Visit Reasons: spinal stenosis Intake Note: Mrs. Smith is here today c/o back pain. 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 Patricia, Thank you for referring Cony to our office today. She is a pleasant 83-year-old female who comes in today with a chief complaint of bilateral lower extremity weakness and fatigue. She reports that this first began back in December of 2019 when she woke one morning and felt her lower extremities were profoundly weak. She was found to have an elevated ESR and was started on treatment for polymyalgia rheumatica. She had improvement of symptoms until about 1 year ago when she began having increased fatigue in her bilateral lower extremities. She states that walking more than 1-2 minutes causes her to need to rest due to fatigue. She is able to still complete ADLs such as grocery shopping, but needs to utilize supports such as a grocery cart. She has not been to PT / Chiropractor / Acupuncture or engaged in other conservative measures, but has been tapering down off prednisone and recently started a rheumatoid drug called Kevzara. PMH: Polymyalgia rheumatica, HTN, Hyperlipidemia, sleep apnea (CPAP), GERD, AFIB, Hx heart valve replacement, 2 femoral stents, tonsillectomy, hysterectomy, TAVR. Social hx: Patient does not smoke, reports no substance use. Medications: Atorvastatin, Zyrtec, vitamin D3, furosemide, Kevzara, lansoprazole, losartan, prednisone, warfarin. Allergies: Erythromycin, Cipro, IV contrast. Physical exam: Cony has 5/5 strength in her upper and lower extremities. She has no significant sensational deficits. She is diffusely hyporeflexive. She ambulates without an antalgic gait with no spasticity in her step. She rises from a seated position without difficulty but does have a difficult time climbing up to the exam table. (-) bilateral Pro's, (-) clonus, (-) straight leg raise bilaterally. Imaging review: MRI of the lumbar spine was completed at [facility]. At L2-3 there is mild central canal and moderate bilateral foraminal stenosis, with significant facet hypertrophy. At L3-4 there is mild right-sided and severe left-sided foraminal stenosis. At L4-5 there is severe central canal and moderate-severe bilateral foraminal stenosis, worse on the right. Impression: Cony is a pleasant 83-year-old female who comes in today as a referral from our Rheumatology Department here at [facility]. She has had worsening lower extremity weakness/fatigue. She is diagnosed with polymyalgia rheumatica, currently tapering down from 10 mg daily prednisone dose. Current daily dose of prednisone is 2 mg. On Kevzara for inflammation reduction. Her Lumbar MRI is significant for several areas that have foraminal stenosis. There is not much to be seen in regards to central canal stenosis, which would be the primary generator for neurogenic claudication. She has no back pain and no pain in her legs. She stops walking due to fatigue. I believe her worsening symptoms are stemming from a non-neurological source. I do not believe that we could pinpoint a surgical site that would provide the patient was symptom relief. Thank you for allowing us to care for your patient. The total time spent with this visit with this patient was 45 minutes reviewing history, physical exam, MRI imaging review, and implementation of treatment plan or further diagnostic testing Jeffry Lopez MD,PhD [facility] Coding Level of Care Code New Pt Level 4 (74345) Diagnoses Bilateral leg weakness R29.898
== END 2024-03-20 14:45 | disposition home or self-care (01) ==
PROVIDERS: PCP Internal Medicine; Referring Provider Student in an Organized Health Care Education/Training Program; Visit Provider Physician Assistant
DX: R29.898 Other symptoms and signs involving the musculoskeletal system (principal)
CPT/HCPCS: 99204

== ENCOUNTER → 2024-03-20 13:50 | Outpatient (BNVA) | payer MEDICARE, OTHER, SELFPAY | PROVIDERS: PCP Internal Medicine; Visit Provider Physician Assistant | DX: R29.898 Other symptoms and signs involving the musculoskeletal system (principal) | CPT/HCPCS: 99202 ==

== ENCOUNTER 2024-04-28 11:47 | Outpatient (REF) | payer MEDICARE, OTHER, SELFPAY ==
[2024-04-28 14:20] LABS: MANUAL DIFF FLAG NO
[2024-04-28 14:30] LABS: Basophils Percent Auto 0.7 % (0-2); Eosinophils Absolute Auto 0.1 X10*3/uL (0.0-0.4); Eosinophils Percent Auto 1.2 % (0-4); Hematocrit 39.1 % (37.0-47.0); Imm Gran Abs Auto 0.01 X10*3/uL (0.00-0.03); Imm Gran Pct Auto 0.2 % (0.0-0.4); Lymphocytes Percent Auto 17.4 % (20-40); Mean Corpuscular HGB Conc 33.2 g/dl (31.0-35.0); Mean Corpuscular Hemoglobin 30.8 pg (27.0-33.0); Mean Corpuscular Volume 92.7 fL (80.0-98.0); Mean Platelet Volume 11.4 fL (9.4-12.3); Monocytes Percent Auto 17.4 % (2-11); Neutrophils Absolute Auto 3.7 x10*3/uL (2.0-8.3); Neutrophils Percent Auto 63.1 % (45-73); Platelet Count 162 X10*3/uL (160-400); Red Blood Count 4.22 X10*6/uL (4.20-5.50); Red Cell Distribution Width 13.6 % (11.0-16.0); White Blood Count 5.8 X10*3/uL (4.8-10.8)
[2024-04-28 15:06] LABS: Erythrocyte Sedimentation Rate 5 MM/HR (0-20)
[2024-04-28 15:07] LABS: Alanine Aminotransferase 27 U/L (0-31); Albumin Level 4.3 g/dL (3.5-5.0); Alkaline Phosphatase 37 U/L (39-117); Anion Gap 13 (12-20); Aspartate Amino Transferase 23 U/L (5-31); Bilirubin Total 1.6 mg/dL (0.0-1.0); Blood Urea Nitrogen 23 mg/dL (9-16); C Reactive Protein < 0.04 mg/dL (< or = 0.50); Calcium 9.3 mg/dL (8.4-10.2); Carbon Dioxide 28 mmol/L (22-29); Chloride 106 mmol/L (96-108); Estimated Glomerular Filt Rate 56; Glucose Random 110 mg/dL (60-115); Potassium 4.1 mmol/L (3.3-5.1); Sodium 143 mmol/L (135-145)
== END 2024-04-28 11:48 | disposition home or self-care (01) ==
LOC: HO.WFDLDS 11:47
PROVIDERS: Visit Provider Student in an Organized Health Care Education/Training Program
DX: M35.3 Polymyalgia rheumatica (principal)
CPT/HCPCS: 36415; 80053; 85025; 85652; 86140

== ENCOUNTER 2024-05-02 12:26 | Outpatient (AMB) | payer MEDICARE, OTHER, SELFPAY ==
--- NOTE | 2024-05-02 12:38 | A.OFFVIS_ITS ---
Vital Signs 05/02/24 12:42 Height 5 ft 1 in Weight 221 lb 5.506 oz BMI 41.8 BP 130/82 Blood Pressure Location Rt brachial Position Sitting Pulse 65 Pulse Source Pulse Oximeter Pulse Oximetry (%) 96 Oxygen Delivery Method Room Air Intake Visit Reasons: PMR Intake Note: Patient presents for PMR. Allergies ciprofloxacin [Cipro] Allergy (Intermediate, Verified 05/02/24 12:42) rash CAT SCAN IV CONTRAST Allergy (Intermediate, Uncoded 02/29/24 12:46) rash Erythromycin Allergy (Intermediate, Uncoded 02/29/24 12:46) Rash Medication List - Last Reconciled 05/02/24 by Aleah Patricia MD atorvastatin 40 mg PO DAILY cetirizine (Zyrtec) 10 mg PO DAILY cholecalciferol (vitamin D3) 100 mcg PO DAILY furosemide 20 mg PO .three times a day Kevzara (sarilumab) 200 mg (1.14 mL) subcut Q2W NS lansoprazole 30 mg PO DAILY losartan 50 mg PO BID miscellaneous medical supply 1 ea miscellaneous DAILY potassium chloride ER (Klor-Con M) 20 mEq PO DAILY prednisone 1 mg PO DAILY warfarin 5 mg PO DAILY warfarin 2.5 mg PO Q OTHER DAY HPI Comments Details: This is an 84-year-old female with PMR who presents for follow-up. She is on Kevzara every other week. She has been tapering down her prednisone. She completely discontinued it about 2 weeks ago. April 15, she rolled over in bed and fell, she bumped her right side, she was evaluated by her PCP and had multiple x-rays done which showed no fractures. Then she has been achy all over, especially in her right side, her right leg, right knee. She thinks that her PMR is in remission. She was evaluated by spine surgeon and evidence of significant spinal stenosis was found that would benefit from surgery.\ Previous history by Dr. Little Pt states that she woke up one morning in December 2019 with pain and stiffness in her legs. Had labs done by her PCP which showed elevated ESR in the 's. Pt was started on Prednisone 15mg daily with improvement in her symptoms and inflammatory markers. Pt is currently on 12.5mg Prednisone daily since April. No pain or stiffness in her shoulders but does have pain and stiffness in her hips and legs. States that she feels fatigued, shaky on her legs. Currently undergoing Physical Therapy twice per week and cardiac therapy twice weekly. Pt denies any visual disturbances, jaw claudication, temporal headaches. Patient has a history of heart failure and is currently being followed by Cardiology for aortic stenosis. 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 Polymyalgia rheumatica Elevated LFTs Right knee meniscal tear Barretts esophagus Sleep apnea Osteopenia Congestive heart failure HTN (hypertension) Polymyalgia Atrial fibrillation Surgical History Aortic valve replaced Hx of tonsillectomy History of cardiac radiofrequency ablation Hx of oophorectomy Family History Father HTN (hypertension) CVD (cardiovascular disease) Mother Stroke Social History Alcohol intake: never Patient Tobacco Use Status: Never used Tobacco e-Cigarette/Vaping Use: Never Used Review of Systems Musc Reports myalgias Physical Exam Vital Signs: Last Vital Signs Pulse 65 05/02/24 12:42 BP 130/82 05/02/24 12:42 Pulse Ox 96 05/02/24 12:42 Oxygen Delivery Method Room Air 05/02/24 12:42 BMI result Body Mass Index 41.8 Const General: cooperative, healthy appearing and comfortable Nutritional Appearance: obese morbidly obese Orientation/consciousness: patient oriented x3 Limitations: no limitations HEENT Other: No temporal area tenderness bilaterally Head: Yes normocephalic and Yes atraumatic Resp Effort & Inspection: normal respiratory effort and able to speak in complete s entences Cardio Rhythm: abnormal rhythm Skin General skin exam: no rashes or lesions noted Neuro General: patient oriented x3 Extrem Other: Osteoarthritic changes of both hands with no active synovitis Normal range of motion of shoulders without pain Negative for rotator cuff provocative maneuvers bilaterally , negative Speed's test bilaterally Superficial & subcutaneous bruising and swelling of the entire right lower extremity Assessment & Plan Assessment & Plan (1) Polymyalgia rheumatica: Comment: dx around 2014 ttt PDN remission off PDN 2016 recurrence 2019 ttt PDN remission 05/2021 recurrene 06/2023 PDN restarted Kevzara 11/2023 effective PDN tapered off 04/2024 Code(s): M35.3 - Polymyalgia rheumatica Category: Medical Plan: This is an 84-year-old female with PMR who presents for follow-up. She is on Kevzara 200 mg every other week and prednisone was tapered off. Doing well overall. She has generalized soreness from a recent fall. Continue Kevzara 200 mg every other week Labs before next visit in 3 months (2) Bilateral leg weakness: Code(s): R29.898 - Other symptoms and signs involving the musculoskeletal system Category: Medical Plan: Bilateral leg weakness and low threshold for fatigue, poor balance, bilateral lower extremity EMG/NCV showed L5-S1 radiculopathy. L-spine MRI shows moderate to severe neural foraminal stenosis. She was evaluated by spine surgeon and no significant stenosis was found that would benefit from surgery. 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 She states that she will have a new bone density scan done soon. Advised patient to send me the report Plan I spent 27 minutes reviewing patient's chart, evaluating patient, ordering diagnostic workup, counseling patient and documenting in the chart Orders: Orders Complete Blood Count Auto Diff 3 Months M35.3 - Polymyalgia rheumatica Comprehensive Met. 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
[2024-05-02 12:42] VITALS: BP 130/82; PULSE 65; O2SAT 96; BMI 41.8
== END 2024-05-02 13:07 | disposition home or self-care (01) ==
PROVIDERS: PCP Internal Medicine; Visit Provider Student in an Organized Health Care Education/Training Program
DX: M35.3 Polymyalgia rheumatica (principal); R29.898 Other symptoms and signs involving the musculoskeletal system; Z79.52 Long term (current) use of systemic steroids
CPT/HCPCS: 99214

== ENCOUNTER → 2024-05-02 12:26 | Outpatient (BNVA) | payer MEDICARE, OTHER, SELFPAY | PROVIDERS: PCP Internal Medicine; Visit Provider Student in an Organized Health Care Education/Training Program | DX: M35.3 Polymyalgia rheumatica (principal); R29.898 Other symptoms and signs involving the musculoskeletal system; Z79.52 Long term (current) use of systemic steroids | CPT/HCPCS: 99212 ==

== ENCOUNTER 2024-07-05 13:24 | Outpatient (AMB) | payer MEDICARE, OTHER, SELFPAY ==
--- NOTE | 2024-07-05 14:18 | A.OFFVIS_ITS ---
Vital Signs 07/05/24 14:19 Height 5 ft 1 in Weight 216 lb 4 oz BMI 40.9 BP 158/70 H Blood Pressure Location Lt brachial Position Sitting Pulse 75 Pulse Source Pulse Oximeter Pulse Oximetry (%) 97 Oxygen Delivery Method Room Air Intake Visit Reasons: INP-Polyneuropathy other ab gait & mobility Accompanied by: Self / Same As Patient Allergies ciprofloxacin [Cipro] Allergy (Intermediate, Verified 07/05/24 14:22) rash CAT SCAN IV CONTRAST Allergy (Intermediate, Uncoded 02/29/24 12:46) rash Erythromycin Allergy (Intermediate, Uncoded 02/29/24 12:46) Rash Do you need a note to return to daycare/school/sports/work: No HPI Comments Details: 84y/o female comes here for evaluation of gait difficulty and weakness. she started noticing slowness and feeling off balance about 2 years ago. she was followe dup by for PMR and was on steroids which was later switched to a biologic. she was evaluated with EMG/NCS which was c/w evidence of L5 S1 radiculopathy . No neuropathy or myopathy she denies severe back pain or neck, denies nay shooting pains. she denies num bness and tingling. She had a fall - from her bed recently . No other falls. SHe had 1 fall last arsenio when she tripped on a dog. 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 Polymyalgia rheumatica Elevated LFTs Right knee meniscal tear Barretts esophagus Sleep apnea Osteopenia Congestive heart failure HTN (hypertension) Polymyalgia Atrial fibrillation Surgical History Aortic valve replaced Hx of tonsillectomy History of cardiac radiofrequency ablation Hx of oophorectomy Family History Father HTN (hypertension) CVD (cardiovascular disease) Mother Stroke Social History Alcohol intake: never Patient Tobacco Use Status: Never used Tobacco e-Cigarette/Vaping Use: Never Used Physical Exam Vital Signs: Last Vital Signs Pulse 75 07/05/24 14:19 BP 158/70 H 07/05/24 14:19 Pulse Ox 97 07/05/24 14:19 Oxygen Delivery Method Room Air 07/05/24 14:19 BMI result Body Mass Index 40.9 Const General: cooperative, healthy appearing, comfortable and no acute distress Nutritional Appearance: obese Orientation/consciousness: patient oriented x3 Eyes Pupils: Equal, round and reactive pupils present Neuro General: patient oriented x3, tone normal, moves all extremities and no focal motor deficits Cranial nerves: Yes Facial sensation intact/muscles of mastication intact, Yes Equal, round and reactive pupils present, Yes Bilaterally intact EOM present, Yes Nystagmus not present, Yes Normal facial strength present, Yes Midline tongue present and Yes Symmetric palate elevation present Cognition (Neuro): normal cognition Gait exam (Neuro): Antalgic gait present Motor exam (neuro): 5/5 motor strength present throughout and Normal motor muscle tone present throughout Deep tendon reflexes (DTR's): Right triceps reflex intensity grade: 1+, Left triceps reflex intensity grade: 1+, Rt Biceps (C5, C6): 1+, Left biceps reflex intensity grade: 1+, Right brachioradialis reflex intensity grade: 1+, Left brachioradialis reflex intensity grade: 1+, Right patellar reflex intensity grade: 1+ and Left patellar reflex intensity grade: 1+ Coordination: [id number] test normal Assessment & Plan Assessment & Plan (1) Gait disorder: Comment: multifactorial- lumbar spondylosis Code(s): R26.9 - Unspecified abnormalities of gait and mobility Category: Medical Plan Reviewed MRI LS spine Suggested to continue PT will follow up as needed, Medications: Refilled Kevzara (sarilumab) 200 mg (1.14 mL) subcut Q2W 2.28 mL 2RF NS Coding Level of Care Code New Pt Level 4 (34944) Diagnoses Gait disorder R26.9
[2024-07-05 14:19] VITALS: BP 158/70; PULSE 75; O2SAT 97; BMI 40.9
== END 2024-07-05 15:28 | disposition home or self-care (01) ==
PROVIDERS: PCP Internal Medicine; Visit Provider Psychiatry & Neurology Neurology
DX: R26.9 Unspecified abnormalities of gait and mobility (principal)
CPT/HCPCS: 99204

== ENCOUNTER → 2024-07-05 13:24 | Outpatient (BNVA) | payer MEDICARE, OTHER, SELFPAY | PROVIDERS: PCP Internal Medicine; Visit Provider Psychiatry & Neurology Neurology | DX: R26.9 Unspecified abnormalities of gait and mobility (principal) | CPT/HCPCS: 99202 ==

== ENCOUNTER 2024-07-14 11:45 | Outpatient (REF) | payer MEDICARE, OTHER, SELFPAY ==
[2024-07-14 14:18] LABS: MANUAL DIFF FLAG NO
[2024-07-14 14:44] LABS: Alanine Aminotransferase 31 U/L (0-31); Albumin Level 4.2 g/dL (3.5-5.0); Alkaline Phosphatase 40 U/L (39-117); Anion Gap 13 (12-20); Aspartate Amino Transferase 33 U/L (5-31); Bilirubin Total 1.4 mg/dL (0.0-1.0); Blood Urea Nitrogen 20 mg/dL (9-16); C Reactive Protein < 0.10 mg/dL (< or = 0.50); Calcium 9.1 mg/dL (8.4-10.2); Carbon Dioxide 29 mmol/L (22-29); Chloride 108 mmol/L (96-108); Estimated Glomerular Filt Rate > 60; Glucose Random 104 mg/dL (60-115); Potassium 3.5 mmol/L (3.3-5.1); Sodium 146 mmol/L (135-145); Total Protein 6.7 g/dL (6.5-8.0)
[2024-07-14 14:55] LABS: Basophils Percent Auto 0.6 % (0-2); Eosinophils Absolute Auto 0.1 X10*3/uL (0.0-0.4); Eosinophils Percent Auto 0.9 % (0-4); Hematocrit 38.3 % (37.0-47.0); Hemoglobin 12.9 g/dl (12.0-16.0); Imm Gran Abs Auto 0.01 X10*3/uL (0.00-0.03); Imm Gran Pct Auto 0.2 % (0.0-0.4); Lymphocytes Absolute Auto 0.9 X10*3/uL (1.2-4.9); Lymphocytes Percent Auto 16.4 % (20-40); Mean Corpuscular HGB Conc 33.7 g/dl (31.0-35.0); Mean Corpuscular Hemoglobin 31.1 pg (27.0-33.0); Mean Corpuscular Volume 92.3 fL (80.0-98.0); Mean Platelet Volume 12.4 fL (9.4-12.3); Monocytes Absolute Auto 0.9 X10*3/uL (0.1-1.2); Neutrophils Absolute Auto 3.6 x10*3/uL (2.0-8.3); Neutrophils Percent Auto 65.9 % (45-73); Platelet Count 149 X10*3/uL (160-400); Red Blood Count 4.15 X10*6/uL (4.20-5.50); Red Cell Distribution Width 12.9 % (11.0-16.0); White Blood Count 5.4 X10*3/uL (4.8-10.8)
[2024-07-14 15:32] LABS: Erythrocyte Sedimentation Rate 3 MM/HR (0-20)
--- OUTSIDE RECORDS SUMMARY | 2024-07-19 08:04 | XMS_ITS | Continuity of Care Document ---
Author Organization [facility] Address [address] [place] [id number]- Care Team Providers Care Audit Reviewer Name Role Phone Leah CROOKS, Karen Madrid Primary Care Physician Encounter [facility] ACCT R [id number] Date(s): 05/24/24 - 06/23/24 [facility] [address] [place] [id number] Attending Physician: Cathy Armando Admitting Physician: Cathy Armando Referring Physician: Cathy Armando Encounter Type: Triage Allergies, Adverse Reactions, Alerts Substance Criticality Severity Reaction Reaction Severity Status ciprofloxacin ITCHY Active erythromycin HIVES Active Contrast Dye hives Active Medications amoxicillin-clavulanate 500 mg-125 mg oral tablet 1 tablet, By Mouth, Every 12 hours, # 20 tablet, 0 Refills, Maintenance, 06/11/23 12:58:00 PM EDT, Tablet, Partial fill upon patient request if the prescription is for a schedule II opioid drug. Start Date: 06/11/23 Stop Date: 06/21/23 Status: Ordered Quantity: 20.0 Unit: tablet Repeat number: 1 atorvastatin 40 mg oral tablet 1 tablet, By Mouth, Daily, # 90 tablet, 3 Refills, Maintenance, 08/16/23 10:27:00 AM EST, [id number], 155, cm, 08/03/23 0:58:00 EST, Height, 90, kg, 08/03/23 0:58:00 EST, Dry Weight Start Date: 08/16/23 Status: Ordered Quantity: 90.0 Unit: tablet Repeat number: 1 Chinstrap for CPAP mask Chinstrap for CPAP mask, See Instructions, # 1 each, Refills 0, Tot. Refills 0, Maintenance, Chin strap for Safe Mask, 08/17/23 4:11:00 PM EST, Supply Start Date: 08/17/23 Status: Ordered Quantity: 1.0 Unit: each Repeat number: 1 Indication: Obstructive sleep apnea (adult) (pediatric) CPAP MASK CPAP MASK, See Instructions, # 1 each, Refills 0, Tot. Refills 0, Maintenance, DME: [facility] CPAP Mask AIRIFT F-30 I DX:MARY g47.33 Length of need: 99, 07/26/23 8:37:00 AM EST, Supply Start Date: 07/26/23 Status: Ordered Quantity: 1.0 Unit: each Repeat number: 1 CPAP Supplies CPAP Supplies, See Instructions, # 1 each, Refills 0, Tot. Refills 0, Maintenance, BIPAP/CPAP Supplies mask, tubing, filters, headgear, chin strap, and water chamber. Patient is compliant with PAP use and continued use is required for medical benefit Length of need: Lifetime 99 months Diagnosis: MARY g47.33, 09/14/23 4:19:00 PM EST, Supply Start Date: 09/14/23 Status: Ordered Quantity: 1.0 Unit: each Repeat number: 1 furosemide 20 mg oral tablet 2, tablet, By Mouth, Daily, # 180 tablet, Refills 3, Maintenance, 11/04/23 8:05:00 AM EDT, Route to Pharmacy Electronically, [facility] [id number], 155, cm, 09/02/23 9:31:00 EST, Height, 90, kg, 08/03/23 0:58:00 EST, Dry Weight Start Date: 11/04/23 Status: Ordered Quantity: 180.0 Unit: tablet Repeat number: 1 Kevzara Pre-filled Pen 200 mg/1.14 mL subcutaneous solution 0 Refills, Maintenance, 01/11/24 2:09:00 PM EDT, Partial fill upon patient request if the prescription is for a schedule II opioid drug. Start Date: 01/11/24 Status: Ordered Repeat number: 1 Klor-Con M20 20 mEq oral tablet, extended release 1 tablet, By Mouth, Daily, # 90 tablet, 2 Refills, Maintenance, 02/17/24 10:29:00 AM EDT, [facility] [id number], 155, cm, 01/11/24 14:05:00 EDT, Height, 90, kg, 08/03/23 0:58:00 EST, Dry Weight Start Date: 02/17/24 Status: Ordered Quantity: 90.0 Unit: tablet Repeat number: 1 lansoprazole 30 mg oral enteric coated capsule 1 capsule = 30 mg, By Mouth, Daily, # 30 capsule, 0 Refills, Maintenance, 08/15/21 11:44:00 AM EST, [facility] Capsule, Partial fill upon patient request if the prescription is for a schedule II opioid drug. Start Date: 08/15/21 Status: Ordered Quantity: 30.0 Unit: capsule Repeat number: 1 losartan 50 mg oral tablet 1 tablet, By Mouth, 2 times a day, # 180 tablet, 1 Refills, Maintenance, 02/25/24 8:06:00 AM EDT, [facility] [id number], 155, cm, 01/11/24 14:05:00 EDT, Height, 90, kg, 08/03/23 0:58:00 EST, Dry Weight Start Date: 02/25/24 Status: Ordered Quantity: 180.0 Unit: tablet Repeat number: 1 Multivitamin 0 Refills, Maintenance, 11/17/23 1:21:00 PM EDT, Partial fill upon patient request if the prescription is for a schedule II opioid drug. Start Date: 11/17/23 Status: Ordered Repeat number: 1 warfarin 5 mg oral tablet See Instructions, take up to 1 tablet By Mouth Daily as directed by coumadin clinic, # 90 tablet, 1Refills, Maintenance, 01/12/24 4:34:00 PM EDT, [facility]/pharmacy #[id number], Partial fill upon patient request if the prescription is for a schedule II opioid drug., 155, cm, 01/11/24 14:05:00 EDT, Height, 90, kg, 08/03/23 0:58:00 EST, Dry Weight Start Date: 01/12/24 Status: Ordered Quantity: 90.0 Unit: tablet Repeat number: 2 Zyrtec 10 mg oral tablet 0.5 tablet = 5 mg, By Mouth, Daily, 0 Refills, Maintenance, 10/25/13 2:58:12 PM EDT Start Date: 10/25/13 Status: Ordered Repeat number: 1 Problem List Condition Confirmation Course Effective Dates Status Health St atus Informant Benign essential hypertension Confirmed Active Dyspnea on exertion Confirmed Active First degree AV block Confirmed Active LBBB (left bundle branch block) Confirmed Active Obesity Confirmed Active Paroxysmal A-fib Confirmed Active Severe aortic stenosis Confirmed Active Severe obesity Confirmed Active CHF NYHA class III Confirmed Active Social History Social History Type Response Smoking Status Former smoker, quit more than 30 days ago entered on: 05/14/23 Sex Sex Representation Female (finding) Patient Care team information Care Team Personnel Name: Leah CROOKS, Karen Madrid Position: [facility] Physician - Primary Care Member Role: PCP Address: [address] [place] [address] [place] [id number] Telecom: Name: Aruna Acuna RN Position: [facility] RN Member Role: Primary Care Nurse Name: Bertha Pierce MA Position: [facility] [place] Office Staff Member Role: Lifetime Consulting Physician Name: Stephanie Joseph RN Position: [facility] RN Member Role: Primary Care Nurse Care Team Related Persons Name: CRIS DYE Name: YORDY LIM Insurance Providers Guarantor name: ALESIA LIM Health Plan Information #: 1 Payer: MEDICARE PART B OUTPT Member Number: NA Policy Number: NA Group Number: NA Health Plan Information #: 2 Payer: [facility] Member Number: NA Policy Number: NA Group Number: NA
--- OUTSIDE RECORDS SUMMARY | 2024-07-19 08:05 | XMS_ITS | Continuity of Care Document ---
Author Organization [facility] Address [address] [place] [id number]- Care Team Providers Care Rail Transit Operator Name Role Phone Leah CROOKS, Karen Madrid Primary [id number] Date[facility]s): [facility]24[facility]24 - 06/23/24 [facility] [address] [place] [id number] Attending Physician: Kash Perez MD Admitting Physician: Kash Perez MD Referring Physician: Kash Perez MD Encounter Type: Pre-Outpt Allergies, Adverse Reactions, Alerts Substance Criticality Severity [...] 3 Refills, Maintenance, 08/16/23 10:27:00 AM EST, [facility] [id number], 155, cm, 08/03/23 0:58:00 EST, Height, 90, [...] 8:05:00 AM EDT, Route to Pharmacy Electronically, [facility] [id number], 155, cm, 09/02/23 9:31:00 EST, Height, 90, [...] 2 Refills, Maintenance, 02/17/24 10:29:00 AM EDT, [facility] [address]01, 155, cm, 01/11/24 14:05:00 EDT, Height, 90, [...] 1 Refills, Maintenance, 02/25/24 8:06:00 AM EDT, [facility] [address]8974, 155, cm, 01/11/24 14:05:00 EDT, Height, 90, [...] tablet, 1Refills, Maintenance, 01/12/24 4:34:00 PM EDT, [facility]/pharmacy #[id number], Partial fill upon patient request [...] Personnel Name: Leah CROOKS, Karen Madrid Position: [facility] Physician - Primary Care Member Role: PCP Address: [address] [place] [address] [facility] [place] [phone] Telecom: Name: Aruna Acuna RN Position: [facility] RN Member Role: Primary Care Nurse Name: Bertha Pierce MA Position: [facility] [place] Office Staff Member Role: Lifetime Consulting Physician Name: Stephanie Joseph RN Position: [facility] RN Member Role: Primary Care Nurse Care Team Related Persons Name: CRIS DYE Name: YORDY LIM Insurance Providers Guarantor name: ALESIA LIM Health Plan Information #: 2 Payer: [facility] Member Number: [id number] Policy Number: NA Group Number: [id number] Health Plan Information #: 1 Payer: MEDICARE PART B OUTPT Member Number: [id number] Policy Number: NA Group Number: NA
== END 2024-07-14 11:46 | disposition home or self-care (01) ==
LOC: HO.WFDLDS 11:45
PROVIDERS: Visit Provider Student in an Organized Health Care Education/Training Program
DX: M35.3 Polymyalgia rheumatica (principal)
CPT/HCPCS: 36415; 80053; 85025; 85652; 86140

== ENCOUNTER 2024-07-19 10:36 | Outpatient (AMB) | payer MEDICARE, OTHER, SELFPAY ==
--- NOTE | 2024-07-19 10:41 | MHC.OFFVIS ---
Vital Signs 07/19/24 10:46 Height 5 ft 1 in Weight 216 lb 0.848 oz BMI 40.8 BP 134/62 Blood Pressure Location Lt brachial Position Sitting Pulse 57 Pulse Source Pulse Oximeter Pulse Oximetry (%) 98 Oxygen Delivery Method Room Air Intake Visit Reasons: PMR Intake Note: Patient presents for PMR. Allergies ciprofloxacin [Cipro] Allergy (Intermediate, Verified 07/19/24 10:46) rash CAT SCAN IV CONTRAST Allergy (Intermediate, Uncoded 02/29/24 12:46) rash Erythromycin Allergy (Intermediate, Uncoded 02/29/24 12:46) Rash Medication List - Last Reconciled 07/19/24 by Aleah Patricia MD atorvastatin 40 mg PO DAILY cetirizine (Zyrtec) 10 mg PO DAILY cholecalciferol (vitamin D3) 100 mcg PO DAILY furosemide 20 mg PO QAM Kevzara (sarilumab) 200 mg (1.14 mL) subcut Q2W NS lansoprazole 30 mg PO DAILY losartan 50 mg PO BID miscellaneous medical supply 1 ea miscellaneous DAILY potassium chloride ER (Klor-Con M) 20 mEq PO DAILY warfarin 5 mg PO DAILY warfarin 2.5 mg PO Q OTHER DAY HPI Comments Details: This is an 84-year-old female with PMR who presents for follow-up. She is on Kevzara every other week. She states that she is doing better. She was not doing well last visit as she had a fall from her bed. She was achy and bruised all over. She has started PT, she has gone to 6 sessions so far. She does not like it very much. She continues to feel some generalized achiness and weakness especially in her low back, hip and thigh area. She does not feel balanced while walking. Previous history by Dr. Little Pt states that she woke up one morning in December 2019 with pain and stiffness in her legs. Had labs done by her PCP which showed elevated ESR in the 's. Pt was started on Prednisone 15mg daily with improvement in her symptoms and inflammatory markers. Pt is currently on 12.5mg Prednisone daily since April. No pain or stiffness in her shoulders but does have pain and stiffness in her hips and legs. States that she feels fatigued, shaky on her legs. Currently undergoing Physical Therapy twice per week and cardiac therapy twice weekly. Pt denies any visual disturbances, jaw claudication, temporal headaches. Patient has a history of heart failure and is currently being followed by Cardiology for aortic stenosis. No family history of RA or SLE LABS (01/27) CRP 12.8 ESR 16 (12/2020) ESR 14 CRP 1.2 (10/2020) CRP 11.15 ESR 20 (08/2020) CRP 0.9 ESR 12 (06/2020) CMP nl CBC nl Hgb 11.2 ESR 25 CRP 1.3 SPEP nl Immunofixation nl RF neg CCP weak pos PFSH Medical History Gait disorder senior care systemic steroid user Polymyalgia rheumatica Elevated LFTs Right knee meniscal tear Barretts esophagus Sleep apnea Osteopenia Congestive heart failure HTN (hypertension) Polymyalgia Atrial fibrillation Surgical History Aortic valve replaced Hx of tonsillectomy History of cardiac radiofrequency ablation Hx of oophorectomy Family History Father HTN (hypertension) CVD (cardiovascular disease) Mother Stroke Social History Alcohol intake: never Patient Tobacco Use Status: Never used Tobacco e-Cigarette/Vaping Use: Never Used Review of Systems Musc Reports myalgias and Reports arthralgias Physical Exam Vital Signs: Last Vital Signs Pulse 57 07/19/24 10:46 BP 134/62 07/19/24 10:46 Pulse Ox 98 07/19/24 10:46 Oxygen Delivery Method Room Air 07/19/24 10:46 BMI result Body Mass Index 40.8 Const General: cooperative, healthy appearing and comfortable Nutritional Appearance: obese morbidly obese Orientation/consciousness: patient oriented x3 Limitations: no limitations HEENT Other: No temporal area tenderness bilaterally Head: Yes normocephalic and Yes atraumatic Resp Effort & Inspection: normal respiratory effort and able to speak in complete sentences Skin General skin exam: no rashes or lesions noted Neuro General: patient oriented x3 Extrem Other: Osteoarthritic changes of both hands with no active synovitis Normal range of motion of shoulders without pain Negative for rotator cuff provocative maneuvers bilaterally , negative Speed's test bilaterally Assessment & Plan Assessment & Plan (1) Polymyalgia rheumatica: Comment: dx around 2014 ttt PDN remission off PDN 2017 recurrence 2020 ttt PDN remission 05/2021 recurrene 06/2023 PDN restarted Kevzara 11/2023 effective PDN tapered off 04/2024 Code(s): M35.3 - Polymyalgia rheumatica Category: Medical Plan: This is an 84-year-old female with PMR who presents for follow-up. She is on Kevzara 200 mg every other week and prednisone was tapered off. Doing well overall. Symptoms at this time are mechanical and degenerative in nature Continue Kevzara 200 mg every other week Labs before next visit in 4 months (2) Bilateral leg weakness: Code(s): R29.898 - Other symptoms and signs involving the musculoskeletal system Category: Medical Plan: Bilateral leg weakness and low threshold for fatigue, poor balance, bilateral lower extremity EMG/NCV showed L5-S1 radiculopathy. L-spine MRI shows moderate to severe neural foraminal stenosis. She was evaluated by spine surgeon and no significant stenosis was found that would benefit from surgery. Also evaluated by neurologist and recommended PT. 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 She states that she will have a new bone density scan done soon. Advised patient to send me the report Plan I spent 27 minutes reviewing patient's chart, evaluating patient, ordering diagnostic workup, counseling patient and documenting in the chart Orders: Orders Complete Blood Count Auto Diff 4 Months M35.3 - Polymyalgia rheumatica Comprehensive Met. 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
[2024-07-19 10:46] VITALS: BP 134/62; PULSE 57; O2SAT 98; BMI 40.8
== END 2024-07-19 11:43 | disposition home or self-care (01) ==
PROVIDERS: PCP Internal Medicine; Visit Provider Student in an Organized Health Care Education/Training Program
DX: M35.3 Polymyalgia rheumatica (principal); R29.898 Other symptoms and signs involving the musculoskeletal system; Z79.52 Long term (current) use of systemic steroids
CPT/HCPCS: 99214; G2211

== ENCOUNTER → 2024-07-19 10:36 | Outpatient (BNVA) | payer MEDICARE, OTHER, SELFPAY | PROVIDERS: PCP Internal Medicine; Visit Provider Student in an Organized Health Care Education/Training Program | DX: M35.3 Polymyalgia rheumatica (principal); R29.898 Other symptoms and signs involving the musculoskeletal system; Z79.52 Long term (current) use of systemic steroids | CPT/HCPCS: 99212 ==

== ENCOUNTER 2024-11-23 08:02 | Emergency (ER) | payer MEDICARE, OTHER, SELFPAY ==
--- NOTE | ~2024-11-23 | XR_ITS ---
EXAMINATION: XR CHEST CLINICAL INFORMATION: ETT placement, cardiac arrest COMPARISON: None available. TECHNIQUE: Frontal view of the chest was obtained. FINDINGS: The endotracheal tube ends at the origin of the right mainstem bronchus/shital junction. Bilateral multifocal patchy and confluent opacities resulting in indistinct margins of the cardiomediastinal silhouette. No pneumothorax. Heart silhouette size is enlarged. There is stent overlapping the aortic valve region. Multilevel thoracic and upper lumbar spondylosis. Patient's large body habitus. XR/XR chest 1V IMPRESSION: Endotracheal tube ends at the origin of the right mainstem bronchus/shital junction. This has been discussed with Dr. Genie Hodges in the emergency department on November 23, 2024 at 8:50 AM. Pulmonary edema and cardiomegaly versus pericardial effusion. Electronically signed by: Humberto Taylor MD 11/23/2024 08:55 AM EDT
--- NOTE | 2024-11-23 08:14 | ECG_ITS ---
Test Reason : rosc Blood Pressure : */* mmHG Vent. Rate : 118 BPM Atrial Rate : 118 BPM P-R Int : 140 ms QRS Dur : 102 ms QT Int : 328 ms P-R-T Axes : 110 -63 215 degrees QTcB Int : 459 ms Normal sinus rhythm with non sustained VT with PVCs Left axis deviation Anteroseptal infarct , age undetermined Intra-ventricular conduction delay Abnormal ECG No previous ECGs available Referred By: Genie Hodges Electronically Signed By: SHARI PARADA MD
[2024-11-23 08:18] VITALS: BP 62/31; PULSE 128
[2024-11-23] MEDS: Norepinephrine Bitartrate/D5W 8 MG/250 ML PLAST..BAG 8.39 MG IVCONT (08:18)
--- NOTE | 2024-11-23 08:24 | ED_ITS ---
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 EMS notes staff at [facility] took her to use bathroom this AM she became unresponsive with HR in 50s and unable to obtain pulse. En route to hospital patient went into PEA and coded for about 5 min [employer]ENDING [employer]OUTE [employer] - epi, belén, bagging done. She is a full code. On arrival to ED agonal respirations, no pulse - CPR x 1 cycle with ROSC for a brief period about 5 min, CPR again x 2 with epi, BS normal, ROSC obtained very profoundly hypoxic and hypotensive unable to oxygenate with max vent settings and BP still low on fluids, levophed and epi. Daughter has been at bedside and 840am states she wants her dad to come but they will likely make her [employer] - stop meds, extubate and start on morphine gtt. complaint: collapsed during activity Onset (ago): minute(s) (30) Timing confirmed by: caregiver Place: [facility] Bystander CPR performed: No AED applied by bystander/manager erp: Yes Shock advised: No Downtime before ACLS arrival (mins): 0 Initial findings in the field: unresponsive, lethargic, agonal and palpable pulse, no BP ROSC in the field: No Associated injuries: No Associated symptoms: dizziness/weakness Known history of: CAD Treatments prior to arrival: BMV, chest compressions and epinephrine mgs # (1) Related Data Home Medications ?Medication ?Instructions ?Recorded ?Confirmed atorvastatin 40 mg tablet 40 mg PO DAILY 06/25/20 11/23/24 lansoprazole 30 mg capsule,delayed 30 mg PO DAILY 06/25/20 11/23/24 release potassium chloride 20 mEq 20 meq PO DAILY 06/25/20 11/23/24 tablet,extended release(part/cryst) (Klor-Con M) losartan 50 mg tablet 50 mg PO BID 08/11/23 11/23/24 furosemide 20 mg tablet 40 mg PO QAM 07/05/24 11/23/24 acetaminophen 325 mg tablet 650 mg PO Q4H PRN Pain 11/23/24 11/23/24 ascorbic acid (vitamin C) 250 mg 250 mg PO DAILY 11/23/24 11/23/24 tablet (Vitamin C) aspirin 81 mg tablet,delayed 81 mg PO DAILY 11/23/24 11/23/24 release diclofenac sodium 1 % topical gel 2 g topical QID 11/23/24 11/23/24 ferrous sulfate 137 mg (45 mg 137 mg PO DAILY 11/23/24 11/23/24 iron) tablet,extended release (Slow Fe) midodrine 10 mg tablet 10 mg PO BID 11/23/24 11/23/24 ondansetron HCl 4 mg tablet 4 mg PO Q6H PRN Nausea And Vomiting 11/23/24 11/23/24 polyethylene glycol 3350 17 gram 17 g PO DAILY 11/23/24 11/23/24 oral powder packet simethicone 80 mg chewable tablet 80 mg PO TID PRN Abdominal 11/23/24 11/23/24 Discomfort Allergies Allergy/AdvReac Type Severity Reaction Status Date / Time ciprofloxacin [Cipro] Allergy Intermediate rash Verified 07/19/24 10:46 CAT SCAN IV CONTRAST Allergy Intermediate rash Uncoded 02/29/24 12:46 Erythromycin Allergy Intermediate Rash Uncoded 02/29/24 12:46 Review of Systems 2 Review of Systems: ROS unable to be obtained due to being unresponsive [facility] Past Medical History Attestation statement: The following information was validated with the patient. Source: old records reviewed Medical History Gait disorder snf systemic steroid user Polymyalgia rheumatica Elevated LFTs Right knee meniscal tear Barretts esophagus Sleep apnea Osteopenia Congestive heart failure HTN (hypertension) Polymyalgia Atrial fibrillation Surgical History Aortic valve replaced Hx of tonsillectomy History of cardiac radiofrequency ablation Hx of oophorectomy Family History Family History Father HTN (hypertension) CVD (cardiovascular disease) Mother Stroke Social History Social History Alcohol intake: never Patient Tobacco Use Status: Never used Tobacco e-Cigarette/Vaping Use: Never Used Advance Directives: No Advance Directives Information Provided: Yes Physical Exam 2 Vital Signs: Vital Signs: Last Vital Signs FiO2 100 11/23/24 08:31 Appearance: unresponsive on arrival CPR being bagged, belén in place, severe distress Eyes: Pupils equal, round and reactive to light. ENT: secretions in mouth Neck: Normal inspection. CVS: absent on arrival, PEA on tele, absent heart sounds Respiratory: secretions in mouth, agonal respiration Abdomen: signs of injections and scattered injection bruises but no hematoma felt Skin: Skin warm and dry. pale skin color. Normal skin turgor. Extremities: No lower extremity edema. Neuro: no response to tactile stimuli Course Course Course Narrative: while I was running the code John MOSS spoke to and daughter they state no further CPR if she is to lose pulses they are en route to the hospital. aware of poor prognosis. patient is not on any sedation at this time maxed on levophed, on epi, 26% on max vent settings no pupillary reflex or gag reflex at this time and daughter want to proceed with terminal extubation and morphine gtt - 9am. Reevaluation(s) Reevaluation #1: extubated at 925am with no issues no response no gag reflex, dusky in appearance no BP noted, HR 50s, pupillary reflex gone Reevaluation #2: 0934 asystole on monitor no gag reflex, no heart sounds, no respirations, pupils fixed and dilated time of - prounounced 934am Medications Administered Generic Name Dose Route Start Last Admin Trade Name Freq PRN Reason Stop Dose Admin Morphine Sulfate 100 mg in 100 mls @ 0 mls/hr 11/23/24 09:15 11/23/24 09:15 Morphine Sulfate/Ns IVCONT 4 mg/hr .Q0M YUNG 4 mls/hr Administration Protocol Per Protocol Discontinued Medications Generic Name Dose Route Start Last Admin Trade Name Freq PRN Reason Stop Dose Admin Dextrose 25 gm 11/23/24 08:36 11/23/24 09:32 Dextrose 50 % 25 Gm/50 Ml Syringe IVPUSH 11/23/24 08:37 25 gm ONCE ONE Administration Etomidate 10 mg 11/23/24 08:16 11/23/24 09:31 Etomidate 20 Mg/10 Ml Vial IVPUSH 11/23/24 08:17 10 mg ONCE ONE Administration Sodium Chloride 1,000 mls @ 999 mls/hr 11/23/24 08:23 11/23/24 09:31 Ns IV 11/23/24 09:23 999 mls/hr .Q1H1M ONE Administration Piperacillin Sod/Tazobactam 50 mls @ 100 mls/hr 11/23/24 08:23 11/23/24 09:32 Sod 3.375 gm/ Sodium Chloride IV 11/23/24 08:52 Not Given ONCE ONE Rocuronium [place] 50 mg 11/23/24 08:14 11/23/24 09:29 Rocuronium [place] 50 Mg/5 Ml Vial IVPUSH 11/23/24 08:15 50 mg ONCE ONE Administration Medical Decision Making Medical Decision Making [facility] Narrative: 84 yo female with PMH of NSTEMI, endocarditis strep A, dCHF, HTN, HLD, CAD, anemia, MARY, 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 She has been intubated, started on 2 pressors with hypotension - at this time family notes they want her to be [employer] on arrival. Will proceed with end of life care. Differential Diagnosis Differential Diagnoses: The differential diagnosis associated with the presentation includes cardiac arrest, arrythmia, infection, ICH Admission/Observation Consideration of admission/observation: Escalation of care including admission/observation considered made [employer] by family Lab Data [facility] Lab Attestation statement: I reviewed the patient's lab results. 11/23/24 08:30 11/23/24 08:30 Labs: Lab Results 11/23/24 11/23/24 11/23/24 Range/Units 08:28 08:30 08:36 WBC 11.8 H (4.8-10.8) X10*3/uL RBC 2.81 L D (4.20-5.50) X10*6/uL Hgb 7.9 L D (12.0-16.0) g/dl Hct 26.4 L D (37.0-47.0) % MCV 94.0 (80.0-98.0) fL MCH 28.1 (27.0-33.0) pg MCHC 29.9 L (31.0-35.0) g/dl RDW 17.2 H (11.0-16.0) % Plt Count 233 D (160-400) X10*3/uL MPV 10.3 (9.4-12.3) fL Immature Gran % (Auto) 4.6 H (0.0-0.4) % Neut % (Auto) 62.6 (45-73) % Lymph % (Auto) 23.3 (20-40) % [place] % (Auto) 7.4 (2-11) % Eos % (Auto) 1.3 (0-4) % Baso % (Auto) 0.8 (0-2) % Lymph # (Auto) 2.8 (1.2-4.9) X10*3/uL [place] # (Auto) 0.9 (0.1-1.2) X10*3/uL Eos # (Auto) 0.2 (0.0-0.4) X10*3/uL Baso # (Auto) 0.1 (0.0-0.2) X10*3/uL Abs Immat Gran (auto) 0.55 H (0.00-0.03) X10*3/uL Absolute Neuts (auto) 7.4 (2.0-8.3) x10*3/uL Absolute Nucleated RBC 0.030 H (0.0-0.012) X10*3/uL Nucleated RBC % (auto) 0.3 H (0.0-0.2) /100WBC VBG pH 7.51 H (7.32-7.43) VBG pCO2 30 mmHg VBG pO2 45 mmHg VBG HCO3 24 (22-26) mmol/L VBG O2 Saturation TNP VBG Base Excess 2.0 mmol/L Sodium 136 (135-145) mmol/L Potassium 4.5 D (3.3-5.1) mmol/L Chloride 98 (96-108) mmol/L Carbon Dioxide 22 (22-29) mmol/L Anion Gap 21 H (12-20) BUN 10 (9-16) mg/dL Creatinine 0.80 (0.5-1.4) mg/dL Estim Creat Clear Calc TNP Estimated GFR > 60 POC Glucose 87 (60-115) mg/dL Random Glucose 167 H (60-115) mg/dL Calcium 8.2 L D (8.4-10.2) mg/dL Magnesium 2.0 (1.6-2.6) mg/dL Total Bilirubin 0.9 (0.0-1.0) mg/dL Direct Bilirubin 0.4 (0.0-0.5) mg/dL AST 74 H (5-31) U/L ALT 9 (0-31) U/L Alkaline Phosphatase 62 (39-117) U/L Troponin I High Sens 358.1 H* (<3.5-17.0) ng/L C-Reactive Protein 10.45 H (< or = 0.50) mg/dL Total Protein 6.7 (6.5-8.0) g/dL Albumin 2.7 L (3.5-5.0) g/dL Procalcitonin 0.16 ng/mL Influenza Type A (PCR) NEGATIVE (Negative) Influenza Type B (PCR) NEGATIVE (Negative) RSV RNA Qual (PCR) NEGATIVE (Negative) SARS-CoV-2 RNA (RT-PCR) NEGATIVE (Negative) Independent Interpretation I performed an independent interpretation of an: EKG, Plain X-Ray (pulm edema and ETT pulled back 2cm) and CT Scan Interpretation: Rate: 118 Rhythm: irregular wide complex [place]: left RBBB ST T wave : no ADAM, t waves tall ant leads but discordant qTC: 459 prior studies: The study has been interpreted contemporaneously by me. EKG #2 Rate: 99 Rhythm: irregular wide complex with ectopy [place]: right Normal P waves. Normal ARIE. RBBB ST T wave : artifact but no ADAM qTC: 462 prior studies: changed from initial EKG The study has been interpreted contemporaneously by me. . Radiology Impression Discussion of test interpretation with radiology: I have reviewed the radiologist's reading. Procedures Procedure Narrative Procedure Narrative: no pericardial effusion noted pulled ETT back 2cm 20cm at the lip no issues Intubation Intubation Type:: Emergency Endotracheal Intubation Intubation Date:: 11/23/24 Time out performed: Yes sedative: Etomidate Mg Given: 10 paralytic: Rocuronium Mg Given: 50 Laryngoscope: other (glidescope) ET Tube Size: 7.5 ET Tube Uncuffed: Yes Tube Secured Depth (cm): 22 Tube Secured Location: lips Tube Placement Confirmation: visualized tube passing through cords, equal breath sounds bilaterally, no breath sounds over epigastrium and confirmation by capnometry Patient Tolerated Procedure: well and no complications Intubation Complications: none Critical Care Time Critical Care Time Critical Care Time: Yes Total Critical Care Time: 45 Attestation: Time is exclusive of separately billable procedures. Time includes: direct patient care, patient reassessment, coordination of patient care, interpretation of data (laboratory data, pulse oximetry and chest xrays), review of patient's medical records, family discussion of end of life care and [employer] and documentation of patient care. Procedures excluded from critical care time: electrocardiography. Discharge Plan Discharge Clinical Impression: Cardiac arrest Patient Disposition: Date/Time: 11/23/24 09:34
[2024-11-23 08:31] VITALS: BP 42/24; PULSE 62; TEMP 33; O2SAT 40
[2024-11-23 08:35] LABS: MANUAL DIFF FLAG NO
[2024-11-23 08:40] LABS: VBG HCO3 24 mmol/L (22-26); VBG pCO2 30 mmHg; VBG pH 7.51 (7.32-7.43); VBG pO2 45 mmHg
[2024-11-23 08:46] LABS: Venous Blood Gas Refer to POC result
[2024-11-23 08:48] LABS: Glucose, Whole Blood 87 mg/dL (60-115)
[2024-11-23 08:48] LABS: Basophils Absolute Auto 0.1 X10*3/uL (0.0-0.2); Basophils Percent Auto 0.8 % (0-2); Eosinophils Absolute Auto 0.2 X10*3/uL (0.0-0.4); Eosinophils Percent Auto 1.3 % (0-4); Hematocrit 26.4 % (37.0-47.0); Hemoglobin 7.9 g/dl (12.0-16.0); Imm Gran Abs Auto 0.55 X10*3/uL (0.00-0.03); Imm Gran Pct Auto 4.6 % (0.0-0.4); Lymphocytes Absolute Auto 2.8 X10*3/uL (1.2-4.9); Lymphocytes Percent Auto 23.3 % (20-40); Mean Corpuscular HGB Conc 29.9 g/dl (31.0-35.0); Mean Corpuscular Hemoglobin 28.1 pg (27.0-33.0); Mean Platelet Volume 10.3 fL (9.4-12.3); Monocytes Absolute Auto 0.9 X10*3/uL (0.1-1.2); Monocytes Percent Auto 7.4 % (2-11); NRBC Pct Auto 0.3 /100WBC (0.0-0.2); Neutrophils Absolute Auto 7.4 x10*3/uL (2.0-8.3); Neutrophils Percent Auto 62.6 % (45-73); Platelet Count 233 X10*3/uL (160-400); Red Blood Count 2.81 X10*6/uL (4.20-5.50); Red Cell Distribution Width 17.2 % (11.0-16.0); White Blood Count 11.8 X10*3/uL (4.8-10.8)
[2024-11-23 08:54] LABS: Alanine Aminotransferase 9 U/L (0-31); Albumin Level 2.7 g/dL (3.5-5.0); Anion Gap 21 (12-20); Aspartate Amino Transferase 74 U/L (5-31); Bilirubin Direct 0.4 mg/dL (0.0-0.5); Bilirubin Total 0.9 mg/dL (0.0-1.0); Blood Urea Nitrogen 10 mg/dL (9-16); C Reactive Protein 10.45 mg/dL (< or = 0.50); Calcium 8.2 mg/dL (8.4-10.2); Carbon Dioxide 22 mmol/L (22-29); Chloride 98 mmol/L (96-108); Estimated Glomerular Filt Rate > 60; Glucose Random 167 mg/dL (60-115); Potassium 4.5 mmol/L (3.3-5.1); Sodium 136 mmol/L (135-145); Total Protein 6.7 g/dL (6.5-8.0)
[2024-11-23 09:02] LABS: Troponin-I High Sensitivity 358.1 ng/L (<3.5-17.0)
[2024-11-23 09:09] LABS: Alkaline Phosphatase 62 U/L (39-117)
[2024-11-23 09:15] LABS: Influenza A PCR NEGATIVE (Negative); Influenza B PCR NEGATIVE (Negative); Resp Syncy Virus RNA Qual PCR NEGATIVE (Negative); SARS COV2 PCR INHOUSE NEGATIVE (Negative)
[2024-11-23] MEDS: Morphine Sulfate/NS 100 MG/100 ML PLAST..BAG IVCONT (09:15)
[2024-11-23 09:20] VITALS: BP 67/30; PULSE 92
--- OUTSIDE RECORDS SUMMARY | 2024-11-23 09:26 | XMS_ITS | Encounter Summary ---
Author Organization [facility] Address [address] [place] [address] Care Team Providers Care Meter Reader Chief Name Role Phone Moe Rodriguez MD Primary Care Provider [phone] Encounter Details Date Type Department Care Team (Late st Contact Info) Description 10/25/2024 Lab Requisition [facility] - Main Lab [address] [facility] [place] [address] Purvi Briscoe PA [address] [place] [address] Anemia, unspecified; Chronic kidney disease, unspecified; Acute and subacute infective endocarditis; Heart failure, unspecified (CMS/HCC V24, CMS/HCC V28) Social History Tobacco Use Types Packs/Day Years Used Date Smoking Tobacco: Never Assessed Comments Unknown Sex and Gender Information Value Date Recorded Sex Assigned at Not on file Legal Sex Female 10:19 PM EST Gender Identity Not on file Sexual Orientation Not on file documented as of this encounter Plan of Treatment Not on file documented as of this encounter Procedures Procedure Name Priority Date/Time Associated Diagnosis Comments SEDIMENTATION RATE Routine 10/25/2024 5: 00 AM EDT Anemia, unspecified Chronic kidney disease, unspecified Acute and subacute infective endocarditis Heart failure, unspecified (CMS/HCC) COMPLETE BLOOD COUNT Routine 10/25/2024 5:00 AM EDT Anemia, unspecified Chronic kidney disease, unspecified Acute and subacute infective endocarditis Heart failure, unspecified (CMS/HCC) C-REACTIVE PROTEIN Routine 10/25/2024 5: 00 AM EDT Anemia, unspecified Chronic kidney disease, unspecified Acute and subacute infective endocarditis Heart failure, unspecified (CMS/HCC) COMPREHENSIVE METABOLIC PANEL Routine 10/25/2024 5:00 AM EDT Anemia, unspecified Chronic kidney disease, unspecified Acute and subacute infective endocarditis Heart failure, unspecified (CMS/HCC) documented in this encounter Results * (ABNORMAL) C-reactive protein (10/25/2024 5:00 AM EDT) [facility] C-Reactive Protein 10.40(H) <=0.50 mg/dL LAB CHEMISTRY METHOD 10/25/2024 11:44 AM EDT [facility] Blood Venous blood specimen / Unknown Venipuncture / Unknown 10/25/2024 5:00 AM EDT 10/25/2024 10:06 AM EDT us Purvi MOSS LAB BLOOD ORDERABLES Final Resul t Performing Organization Address City/[facility]/ZIP Co de Phone Number [facility] [address] [place] [address], [place] [phone] * (ABNORMAL) Sedimentation rate (10/25/2024 5:00 AM EDT) [facility] Sed Rate 65(H) 0 - 30 mm/hr LAB HEMETOLOGY METHOD 10/25/2024 1:03 PM EDT [facility] Blood Venous blood specimen / Unknown Venipuncture / Unknown 10/25/2024 5:00 AM EDT 10/25/2024 10:06 AM EDT us Purvi MOSS LAB BLOOD ORDERABLES Final Resul t [facility] [address] [place] [address], [place] [phone] * (ABNORMAL) Comprehensive metabolic panel (10/25/2024 5:00 AM EDT) [facility] Sodium 141 133 - 145 mmol/L LAB CHEMISTRY METHOD 10/25/2024 11:45 AM [facility] Potassium 4.0 3.5 - 5.5 mmol/L LAB CHEMISTRY METHOD 10/25/2024 11:45 AM [facility] Chloride 105 96 - 110 mmol/L LAB CHEMISTRY METHOD 10/25/2024 11:45 AM [facility] CO2 26 21 - 32 mmol/L LAB CHEMISTRY METHOD 10/25/2024 11:45 AM [facility] Anion Gap 10 3 - 11 LAB CHEMISTRY METHOD 10/25/2024 11:45 AM [facility] Glucose 95 70 - 100 mg/dL LAB CHEMISTRY METHOD 10/25/2024 11:45 AM [facility] BUN 16 5 - 25 mg/dL LAB CHEMISTRY METHOD 10/25/2024 11:45 AM [facility] Creatinine 0.60 0.50 - 1.10 mg/dL LAB CHEMISTRY METHOD 10/25/2024 11:45 AM [facility] eGFR 90 >=60 mL/min/1. 73m2 LAB CHEMISTRY METHOD 10/25/2024 11:45 AM [facility] Comment:Calculation based on the??Chronic Kidney Disease Epidemiology Collaboration (CKD-EPI) equation refit??without adjustment for race. BUN/Creatinine Ratio 26.7 LAB CHEMISTRY METHOD 10/25/2024 11:45 AM [facility] Calcium 8.5 8.5 - 10.5 mg/dL LAB CHEMISTRY METHOD 10/25/2024 11:45 AM [facility] AST (SGOT) 36 10 - 42 unit/L LAB CHEMISTRY METHOD 10/25/2024 11:45 AM [facility] ALT (SGPT) 31 10 - 60 unit/L LAB CHEMISTRY METHOD 10/25/2024 11:45 AM [facility] Alkaline Phosphatase 65 42 - 121 unit/L LAB CHEMISTRY METHOD 10/25/2024 11:45 AM EDT [facility] Total Protein 6.2 6.0 - 8.0 g/dL LAB CHEMISTRY METHOD 10/25/2024 11:45 AM EDT [facility] Albumin 2.2(L) 3.2 - 5.0 g/dL LAB CHEMISTRY METHOD 10/25/2024 11:45 AM EDT [facility] Total Bilirubin 1.4 0.0 - 1.4 mg/dL LAB CHEMISTRY METHOD 10/25/2024 11:45 AM EDT [facility] Blood Venous blood specimen / Unknown Venipuncture / Unknown 10/25/2024 5:00 AM EDT 10/25/2024 10:06 AM EDT us Purvi MOSS LAB BLOOD ORDERABLES Final Resul t [facility] [address] [place] [address], * (ABNORMAL) Complete blood count (10/25/2024 5:00 AM EDT) WBC 15.7(H) 4.8 - 10.8 K/mcL LAB HEMETOLOGY METHOD 10/25/2024 1:15 PM EDT [facility] RBC 2.50(L) 3.80 - 4.80 M/mcL LAB HEMETOLOGY METHOD 10/25/2024 1:15 PM EDT [facility] Hemoglobin 7.6(L) 11.5 - 16.0 g/dL LAB HEMETOLOGY METHOD 10/25/2024 1:15 PM EDT [facility] Hematocrit 25.0(L) 35.0 - 47.0 % LAB HEMETOLOGY METHOD 10/25/2024 1:15 PM EDT [facility] MCV 99.2(H) 79.0 - 98.0 FL LAB HEMETOLOGY METHOD 10/25/2024 1:15 PM EDT [facility] MCH 30.2 27.0 - 32.0 pcg LAB HEMETOLOGY METHOD 10/25/2024 1:15 PM EDT [facility] MCHC 30.4(L) 32.0 - 37.0 g/dL LAB HEMETOLOGY METHOD 10/25/2024 1:15 PM EDT [facility] RDW 16.4(H) 11.0 - 15.0 % LAB HEMETOLOGY METHOD 10/25/2024 1:15 PM EDT [facility] Platelets 178 130 - 400 K/mcL LAB HEMETOLOGY METHOD 10/25/2024 1:15 PM EDT [facility] MPV 11.2(H) 7.0 - 11.0 FL LAB HEMETOLOGY METHOD 10/25/2024 1:15 PM EDT [facility] NRBC 0.0 <1.0 % LAB HEMETOLOGY METHOD 10/25/2024 1:15 PM EDT [facility] NRBC Absolute 0.00 <0.10 K/mcL LAB HEMETOLOGY METHOD 10/25/2024 1:15 PM EDT [facility] Blood Venous blood specimen / Unknown Venipuncture / Unknown 10/25/2024 5:00 AM EDT 10/25/2024 10:06 AM EDT us Purvi MOSS LAB BLOOD ORDERABLES Final Resul t [facility] [address] [place] [address], documented in this encounter Visit Diagnoses Diagnosis Anemia, unspecified Chronic kidney disease, unspecified Acute and subacute infective endocarditis Heart failure, unspecified (CMS/HCC V24, CMS/HCC V28) Heart failure, unspecified documented in this encounter Care Teams Meter Reader Chief Relationship Specialty Start Date End Date Daul, Adnan M, MD [address] [place] [id number] PCP - General Internal Medicine 09/13/24 documented as of this encounter
--- OUTSIDE RECORDS SUMMARY | 2024-11-23 09:26 | XMS_ITS | Encounter Summary ---
Author Organization [facility] Address [address] [place] [address] Care Team Providers Care Plasma Processing Centrifuge Operator Name Role Phone Moe Rodriguez MD Primary Care Provider [phone] Encounter Details Date Type Department Care Team (Late st Contact Info) Description 09/14/2024 Lab Requisition [facility] - Main Lab [address] [facility] [place] [address] Moe Rodriguez MD [address] [place] [id number] Encounter for other general examination Social History Tobacco Use Types Packs/Day Years [...] Procedure Name Priority Date/Time Associated Diagnosis Comments BORRELIA BURGDORFERI ANTIBODY Routine 09/14/2024 6:47 AM EST Encounter for other general examination VITAMIN D 25 HYDROXY Routine 09/14/2024 6:47 AM EST Encounter for other general examination SEDIMENTATION RATE Routine 09/14/2024 6: 47 AM EST Encounter for other general examination URIC ACID Routine 09/14/2024 6:47 AM EST Encounter for other general examination THYROID STIMULATING HORMONE Routine 09/14/2024 6:47 AM EST Encounter for other general examination VITAMIN B12 Routine 09/14/2024 6:47 AM EST Encounter for other general examination CREATINE KINASE Routine 09/14/2024 6:47 AM EST Encounter for other general examination documented in this encounter Results * Borrelia burgdorferi antibody (09/14/2024 6:47 AM EST) [facility] Lyme Ab Negative Negative LAB CHEMISTRY METHOD 09/14/2024 1:19 PM EST [facility] Comment: No laboratory evidence of infection with B. burgdorferi (Lyme disease). Negative results may occur in patients recently infected (<=14 days) with B. burgdorferi. ??If recent infection is suspected, repeat testing on a new sample collected in 7-14 days is recommended. Blood Venous blood specimen / Unknown 09/14/2024 6:47 AM EST 09/14/2024 9:12 AM EST Moe Rodriguez MD LAB BLOOD ORDERABLES Final Res ult Performing Organization Address City/[facility]/ZIP Co de Phone Number [facility] [address] [place] [address], [place] [phone] * Vitamin D 25 hydroxy (09/14/2024 6:47 AM EST) [facility] Vit D, 25-Hydroxy 35.7 30.0 - 80.0 ng/mL LAB CHEMISTRY METHOD 09/14/2024 10:33 AM EST [facility] Blood Venous blood specimen / Unknown Venipuncture / Unknown 09/14/2024 6:47 AM EST 09/14/2024 8:55 AM EST Moe Rodriguez MD LAB BLOOD ORDERABLES Final Res ult [facility] [address] [place] [address], [place] [phone] * Creatine kinase (09/14/2024 6:47 AM EST) [facility] Total CK 49 22 - 269 unit/L LAB CHEMISTRY METHOD 09/14/2024 10:52 AM EST [facility] Blood Venous blood specimen / Unknown Venipuncture / Unknown 09/14/2024 6:47 AM EST 09/14/2024 8:55 AM EST Moe Rodriguez MD LAB BLOOD ORDERABLES Final Res ult Performing Organization Address City/[facility]/ZIP Co de Phone Number [facility] [address] [place] [address], [place] [phone] * Uric acid (09/14/2024 6:47 AM EST) [facility] Uric Acid 5.9 3.1 - 7.8 mg/dL LAB CHEMISTRY METHOD 09/14/2024 10:26 AM EST [facility] Blood Venous blood specimen / Unknown Venipuncture / Unknown 09/14/2024 6:47 AM EST 09/14/2024 8:55 AM EST Moe Rodriguez MD LAB BLOOD ORDERABLES Final Res ult Performing Organization Address [facility]/ZIP Co de Phone Number [facility] [address] [place] [address], [place] [phone] * Thyroid stimulating hormone (09/14/2024 6:47 AM EST) [facility] TSH 1.49 0.40 - 4.00 mcIU/mL LAB CHEMISTRY METHOD 09/14/2024 10:33 AM EST [facility] Blood Venous blood specimen / Unknown Venipuncture / Unknown 09/14/2024 6:47 AM EST 09/14/2024 8:55 AM EST Moe Rodriguez MD LAB BLOOD ORDERABLES Final Res ult [facility] [address] [place] [address], [place] [phone] * Sedimentation rate (09/14/2024 6:47 AM EST) Pathologist [facility] Sed Rate 13 0 - 30 mm/hr LAB HEMETOLOGY METHOD 09/14/2024 10:03 AM EST [facility] Blood Venous blood specimen / Unknown Venipuncture / Unknown 09/14/2024 6:47 AM EST 09/14/2024 8:55 AM EST us Moe Rodriguez MD LAB BLOOD ORDERABLES Final Res ult Performing Organization Address City/[facility]/ZIP Co de Phone Number [facility] [address] [place] [address], [place] [phone] * (ABNORMAL) Vitamin B12 (09/14/2024 6:47 AM EST) [facility] Vitamin B-12 >2,000(H) 250 - 900 pcg/mL LAB CHEMISTRY METHOD 09/14/2024 10:52 AM EST [facility] Blood Venous blood specimen / Unknown Venipuncture / Unknown 09/14/2024 6:47 AM EST 09/14/2024 8:55 AM EST us Moe Rodriguez MD LAB BLOOD ORDERABLES Final Res ult [facility] [address] [place] [address], [place] [phone] documented in this encounter Visit Diagnoses Diagnosis Encounter for other general examination documented in this encounter Care Teams Plasma Processing Centrifuge Operator Relationship Specialty Start Date End Date Moe Rodriguez MD [address] [place] [phone] PCP - General Internal Medicine 09/13/24 documented as of this encounter
--- OUTSIDE RECORDS SUMMARY | 2024-11-23 09:26 | XMS_ITS | Encounter Summary ---
Author Organization [facility] Address [address] [place] [address] Care Team Providers Care Metallurgical Inspector Name Role Phone Moe Rodriguez MD Primary Care Provider Encounter Details Date Type Department Care Team (Late st Contact Info) Description 09/23/2024 Lab Requisition [facility] Main Lab [address] [facility] [address] [place] [address] Moe Rodriguez MD [address] [place] [phone] Encounter for other general examination Social History [...] Procedure Name Priority Date/Time Associated Diagnosis Comments COMPLETE BLOOD COUNT Routine 09/23/2024 10:29 AM EST Encounter for other general examination documented in this encounter Results * (ABNORMAL) Complete blood count (09/23/2024 10:29 AM EST) WBC 7.2 4.8 - 10.8 K/mcL LAB HEMETOLOGY METHOD 09/23/2024 1:37 PM EST [facility] RBC 3.90 3.80 - 4.80 M/mcL LAB HEMETOLOGY METHOD 09/23/2024 1:37 PM EST [facility] Hemoglobin 11.5 11.5 - 16.0 g/dL LAB HEMETOLOGY METHOD 09/23/2024 1:37 PM EST [facility] Hematocrit 35.0 35.0 - 47.0 % LAB HEMETOLOGY METHOD 09/23/2024 1:37 PM [facility] MCV 90.9 79.0 - 98.0 FL LAB HEMETOLOGY METHOD 09/23/2024 1:37 PM [facility] MCH 29.9 27.0 - 32.0 pcg LAB HEMETOLOGY METHOD 09/23/2024 1:37 PM EST [facility] MCHC 32.9 32.0 - 37.0 g/dL LAB HEMETOLOGY METHOD 09/23/2024 1:37 PM [facility] RDW 15.6(H) 11.0 - 15.0 % LAB HEMETOLOGY METHOD 09/23/2024 1:37 PM [facility] Platelets 74(L) 130 - 400 K/mcL LAB HEMETOLOGY METHOD 09/23/2024 1:37 PM [facility] LAB Comment:previously verified by slide MPV 12.9(H) 7.0 - 11.0 FL LAB HEMETOLOGY METHOD 09/23/2024 1:37 PM [facility] NRBC 0.0 <1.0 % LAB HEMETOLOGY METHOD 09/23/2024 1:37 PM [facility] LAB NRBC Absolute 0.00 <0.10 K/mcL LAB HEMETOLOGY METHOD 09/23/2024 1:37 PM [facility] Blood Venous blood specimen / Unknown Venipuncture / Unknown 09/23/2024 10:29 AM EST 09/23/2024 1:09 PM EST us Moe Rodriguez MD LAB BLOOD ORDERABLES Final Res ult [facility] [address] [place] [address], documented in this encounter Visit Diagnoses Diagnosis Encounter for other general examination documented in this encounter Care Teams Metallurgical Inspector Relationship Specialty Start Date End Date Moe Rodriguez MD [address] [place] [phone] PCP - General Internal Medicine 09/13/24 documented as of this encounter
--- OUTSIDE RECORDS SUMMARY | 2024-11-23 09:26 | XMS_ITS | Encounter Summary ---
Author Organization [facility] Address [address] [place] [address] Care Team Providers Care Financial Planning Advisor Name Role Phone Moe Rodriguez MD Primary Care Provider [phone] Encounter Details Date Type Department Care Team (Late st Contact Info) Description 09/16/2024 Lab Requisition [facility] - Main Lab [address] [facility] [place] [address] Moe Rodriguez MD [address] [place] [phone] Encounter for other general examination Social History [...] Procedure Name Priority Date/Time Associated Diagnosis Comments PHOSPHORUS Routine 09/16/2024 10:38 AM EST Encounter for other general examination MAGNESIUM Routine 09/16/2024 10:38 AM EST Encounter for other general examination BASIC METABOLIC PANEL Routine 09/16/2024 10:38 AM EST Encounter for other general examination documented in this encounter Results * Phosphorus (09/16/2024 10:38 AM EST) Phosphorus 3.1 2.5 - 4.5 mg/dL LAB CHEMISTRY METHOD 09/16/2024 1:09 PM EST [facility] Blood Venous blood specimen / Unknown Venipuncture / Unknown 09/16/2024 10:38 AM EST 09/16/2024 11:30 AM EST Moe Rodriguez MD LAB BLOOD ORDERABLES Final Res ult Performing Organization Address City/[facility]/ZIP Co de Phone Number [facility] [address] [place] [address], [place] [phone] * Magnesium (09/16/2024 10:38 AM EST) Magnesium 2.0 1.9 - 2.6 mg/dL LAB CHEMISTRY METHOD 09/16/2024 1:09 PM [facility] Blood Venous blood specimen / Unknown Venipuncture / Unknown 09/16/2024 10:38 AM EST 09/16/2024 11:30 AM EST Moe Rodriguez MD LAB BLOOD ORDERABLES Final Res ult Performing Organization Address City/[facility]/ZIP Co de Phone Number [facility] [address] [place] [address], [place] [phone] * (ABNORMAL) Basic metabolic panel (09/16/2024 10:38 AM EST) Sodium 138 133 - 145 mmol/L LAB CHEMISTRY METHOD 09/16/2024 1:09 PM [facility] Potassium 3.6 3.5 - 5.5 mmol/L LAB CHEMISTRY METHOD 09/16/2024 1:09 PM [facility] Chloride 106 96 - 110 mmol/L LAB CHEMISTRY METHOD 09/16/2024 1:09 PM [facility] CO2 23 21 - 32 mmol/L LAB CHEMISTRY METHOD 09/16/2024 1:09 PM [facility] Anion Gap 9 3 - 11 LAB CHEMISTRY METHOD 09/16/2024 1:09 PM [facility] Glucose 115(H) 70 - 100 mg/dL LAB CHEMISTRY METHOD 09/16/2024 1:09 PM [facility] BUN 25 5 - 25 mg/dL LAB CHEMISTRY METHOD 09/16/2024 1:09 PM [facility] Creatinine 0.83 0.50 - 1.10 mg/dL LAB CHEMISTRY METHOD 09/16/2024 1:09 PM [facility] LAB eGFR 70 >=60 mL/min/1. 73m2 LAB CHEMISTRY METHOD 09/16/2024 1:09 PM [facility] LAB Comment:Calculation based on the??Chronic Kidney Disease Epidemiology Collaboration (CKD-EPI) equation refit??without adjustment for race. BUN/Creatinine Ratio 30.1 LAB CHEMISTRY METHOD 09/16/2024 1:09 PM [facility] Calcium 8.9 8.5 - 10.5 mg/dL LAB CHEMISTRY METHOD 09/16/2024 1:09 PM [facility] Blood Venous blood specimen / Unknown Venipuncture / Unknown 09/16/2024 10:38 AM EST 09/16/2024 11:30 AM EST us Moe Rodriguez MD LAB BLOOD ORDERABLES Final Res ult [facility] [address] [place] [address], documented in this encounter Visit Diagnoses Diagnosis Encounter for other general examination documented in this encounter Care Teams Financial Planning Advisor Relationship Specialty Start Date End Date Moe Rodriguez MD [address] [place] [phone] PCP - General Internal Medicine 09/13/24 documented as of this encounter
--- OUTSIDE RECORDS SUMMARY | 2024-11-23 09:26 | XMS_ITS | Clinical Summary ---
Author Organization [address] Address [address] [place] [address] Phone Care Team Providers Care Copping Machine Operator Name Role Phone Moe Rodriguez MD Primary Care Provider [phone] Encounters Date Type Department Care Team Description 11/22/2024 Lab Requisition [facility] [address] [place] [phone] Jose Burgos MD Endocarditis, valve unspecified 11/18/2024 Lab Requisition [facility] [address] [place] [phone] Jose Burgos MD Endocarditis, valve unspecified 11/18/2024 Lab Requisition [facility] [address] [place] [phone] Jose Burgos MD Non-ST elevation (NSTEMI) myocardial infarction (CMS/HCC V24, CMS/HCC V28) 11/15/2024 Lab Requisition [facility] [address] [place] [phone] Jose Burgos MD Endocarditis, valve unspecified 11/12/2024 Lab Requisition [facility] [address] [place] [phone] Jose Burgos MD Endocarditis, valve unspecified 11/08/2024 Lab Requisition [facility] [address] [place] [phone] Jose Burgos MD Endocarditis, valve unspecified 11/04/2024 Lab Requisition [facility] [address] [place] [phone] Jose Burgos MD Endocarditis, valve unspecified 11/01/2024 Lab Requisition [facility] [address] [place] [phone] Jose Burgos MD Endocarditis, valve unspecified 11/01/2024 Lab Requisition [facility] [address] [place] [phone] Jose Burgos MD Endocarditis, valve unspecified; Encounter for other general examination; [facility] [place] [facility] drug therapy 10/31/2024 Lab Requisition [facility] [address] [place] [phone] Jose Burgos MD Endocarditis, valve unspecified; Chronic kidney disease, unspecified; Heart failure, unspecified (CMS/HCC V24, CMS/HCC V28); Anemia, unspecified 10/29/2024 Lab Requisition [facility] [address] [place] [phone] Vibha Briggs MD Anemia, unspecified; Chronic kidney disease, unspecified; Heart failure, unspecified (CMS/HCC V24, CMS/HCC V28); Endocarditis, valve unspecified 10/27/2024 Lab Requisition [facility] [address] [place] [phone] Vibha Briggs MD Endocarditis, valve unspecified 10/27/2024 Lab Requisition [facility] [address] [place] [address] Purvi Briscoe PA Retention of urine, unspecified; Elevated white blood cell count, unspecified 10/26/2024 Lab Requisition [facility] [address] [place] [phone] Vibha Briggs MD Elevated white blood cell count, unspecified 10/26/2024 Lab Requisition [facility] [address] [place] [address] Vibha Briggs MD Elevated white blood cell count, unspecified 10/25/2024 Lab Requisition [facility] [address] [place] [phone] Purvi Briscoe PA Anemia, unspecified; Chronic kidney disease, unspecified; Acute and subacute infective endocarditis; Heart failure, unspecified (CMS/HCC V24, CMS/HCC V28) 09/25/2024 Lab Requisition [facility] [address] [place] [phone] Moe Rodriguez MD Encounter for other general examination 09/23/2024 Lab Requisition [facility] [address] [place] [phone] Moe Rodriguez MD Encounter for other general examination 09/22/2024 Lab Requisition [facility] [address] [place] [phone] Moe Rodriguez MD Encounter for other general examination 09/17/2024 Lab Requisition [facility] [address] [place] [address] Moe Rodriguez MD Encounter for other general examination 09/16/2024 Lab Requisition [facility] [address] [place] [address] Moe Rodriguez MD Encounter for other general examination 09/14/2024 Lab Requisition [facility] [address] [place] [address] Moe Rodriguez MD Encounter for other general examination 09/13/2024 Lab Requisition [facility] [address] [place] [phone] Moe Rodriguez MD Encounter for other general examination from Last 3 Months Social History Tobacco Use Types Packs/Day Years Used Date Smoking Tobacco: Never Assessed Comments Unknown Sex and Gender Information Value Date Recorded Sex Assigned at Not on file Legal Sex Female 10:19 PM EST Gender Identity Not on file Sexual Orientation Not on file Plan of Treatment Health Maintenance Due Date Last Done Comments COVID-19 Vaccine (#1) 1945 DTaP,Tdap,and Td Vaccines (1 - Tdap) 1961 Pneumococcal Vaccine: 50+ Years (1 of 2 - PCV) 1961 Zoster Vaccines (1 of 2) 1992 RSV Immunization Adult Patients (1 - 1-dose 75+ series) 2017 Cholesterol Screening (Lipid Panel) 09/13/2024 Depression Screening 09/13/2024 Falls Risk Assessment 09/13/2024 Medicare Annual Wellness Visit 09/13/2024 Osteoporosis Screening (Bone Density Screening) 09/13/2024 Social Influencers of Health Screening 09/13/2024 Influenza Vaccine (Season Ended) 2025 Hypertension/CHF/CAD Annual BMP Blood Test 11/20/2025 11/20/2024, 11/18/2024, 10/31/2024, Additional history exists HIB Vaccines Aged Out No longer eligi ble based on patient's age to complete this topic HPV Vaccines Aged Out No longer eligi ble based on patient's age to complete this topic Hepatitis A Vaccines Aged Out No long er eligible based on patient's age to complete this topic Hepatitis B Vaccines Aged Out No long er eligible based on patient's age to complete this topic IPV Vaccines Aged Out No longer eligi ble based on patient's age to complete this topic MMR Vaccines Aged Out No longer eligi ble based on patient's age to complete this topic Meningococcal ACWY Vaccine Aged Out N o longer eligible based on patient's age to complete this topic Meningococcal B Vaccine Aged Out No l onger eligible based on patient's age to complete this topic RSV Immunization Patients Under 20 months Aged Out No longer eligible based on patient's age to complete this topic Varicella Vaccines Aged Out No longer eligible based on patient's age to complete this topic Procedures Procedure Name Priority Date/Time Associated Diagnosis Comments COMPREHENSIVE METABOLIC PANEL Routine 11/20/2024 5:10 AM EDT Endocarditis, valve unspecified COMPLETE BLOOD COUNT Routine 11/20/2024 5:10 AM EDT Endocarditis, valve unspecified BASIC METABOLIC PANEL Routine 11/18/2024 9:30 AM EDT Non-ST elevation (NSTEMI) myocardial infarction (CMS/HCC V24, CMS/HCC V28) COMPLETE BLOOD COUNT Routine 11/18/2024 9:30 AM EDT Non-ST elevation (NSTEMI) myocardial infarction (CMS/HCC V24, CMS/HCC V28) FOLATE Routine 11/01/2024 6:55 AM EDT Endocarditis, valve unspecified Encounter for other general examination Other [facility] (current) drug therapy VITAMIN B12 Routine 11/01/2024 6:55 AM EDT Endocarditis, valve unspecified Encounter for other general examination Other [facility] (current) drug therapy IRON AND TIBC Routine 11/01/2024 6:55 AM EDT Endocarditis, valve unspecified Encounter for other general examination [facility] [place] [facility] drug [facility] FERRITIN Routine 11/01/2024 6:55 AM EDT Endocarditis, valve unspecified Encounter for other general examination [facility] [place] [facility] drug therapy VITAMIN B12 AND FOLATE Routine 7:35 AM EDT Endocarditis, valve unspecified Chronic kidney disease, unspecified Heart failure, unspecified (CMS/HCC) Anemia, unspecified IRON AND TIBC Routine 10/31/2024 7:35 AM EDT Endocarditis, valve unspecified Chronic kidney disease, unspecified Heart failure, unspecified (CMS/HCC) Anemia, unspecified FERRITIN Routine 10/31/2024 7:35 AM EDT Endocarditis, valve unspecified Chronic kidney disease, unspecified Heart failure, unspecified (CMS/HCC) Anemia, unspecified COMPREHENSIVE METABOLIC PANEL Routine 10/31/2024 7:35 AM EDT Endocarditis, valve unspecified Chronic kidney disease, unspecified Heart failure, unspecified (CMS/HCC) Anemia, unspecified COMPLETE BLOOD COUNT Routine 10/31/2024 7:35 AM EDT Endocarditis, valve unspecified Chronic kidney disease, unspecified Heart failure, unspecified (CMS/HCC) Anemia, unspecified URINALYSIS WITH REFLEX MICROSCOPIC Routine 10/27/2024 8:00 AM EDT Retention of urine, unspecified Elevated white blood cell count, unspecified URINALYSIS WITH REFLEX MICROSCOPIC Routine 10/27/2024 8:00 AM EDT Retention of urine, unspecified Elevated white blood cell count, unspecified CBC WITH AUTO DIFFERENTIAL Routine 10/27/2024 5:03 AM EDT Endocarditis, valve unspecified CBC AND DIFFERENTIAL Routine 10/27/2024 5:03 AM EDT Endocarditis, valve unspecified CULTURE URINE Routine 10/26/2024 11:30 AM EDT Retention of urine, unspecified Elevated white blood cell count, unspecified CULTURE BLOOD STAT 10/26/2024 5:16 AM EDT Elevated white blood cell count, unspecified CBC WITH AUTO DIFFERENTIAL STAT 10/26/2024 5:00 AM EDT Elevated white blood cell count, unspecified CBC AND DIFFERENTIAL Routine 10/26/2024 5:00 AM EDT Elevated white blood cell count, unspecified CULTURE BLOOD STAT 10/26/2024 5:00 AM EDT Elevated white blood cell count, unspecified C-REACTIVE PROTEIN Routine 10/25/2024 5: 00 AM EDT Anemia, unspecified Chronic kidney disease, unspecified Acute and subacute infective endocarditis Heart failure, unspecified (CMS/HCC) SEDIMENTATION RATE Routine 10/25/2024 5: 00 AM [...] failure, unspecified (CMS/HCC) COMPLETE BLOOD COUNT Routine 09/25/2024 6:23 AM EST Encounter for other general examination COMPLETE BLOOD COUNT Routine 09/23/2024 10:29 AM EST Encounter for other general examination COMPLETE BLOOD COUNT Routine 09/22/2024 7:05 AM EST Encounter for other general examination BASIC METABOLIC PANEL Routine 09/22/2024 7:05 AM EST Encounter for other general examination PROTHROMBIN TIME WITH INR Routine 09/17/2024 5:13 AM EST Encounter for other general examination PHOSPHORUS Routine 09/16/2024 10:38 AM EST Encounter for other general examination MAGNESIUM Routine 09/16/2024 10:38 AM EST Encounter for other general examination BASIC METABOLIC PANEL Routine 09/16/2024 10:38 AM EST Encounter for other general examination BORRELIA BURGDORFERI ANTIBODY Routine 09/14/2024 6:47 AM [...] for other general examination URIC ACID Routine 09/13/2024 8:53 AM EST Encounter for other general examination SEDIMENTATION RATE Routine 09/13/2024 8: 53 AM EST SST - GOLD Routine 09/13/2024 8:53 AM EST Encounter for other general examination CBC WITH AUTO DIFFERENTIAL Routine 09/13/2024 8:53 AM EST Encounter for other general examination MAGNESIUM Routine 09/13/2024 8:53 AM EST Encounter for other general examination CBC AND DIFFERENTIAL Routine 09/13/2024 8:53 AM EST Encounter for other general examination COMPREHENSIVE METABOLIC PANEL Routine 09/13/2024 8:53 AM EST Encounter for other general examination from Last 3 Months Results * (ABNORMAL) Complete blood count (11/20/2024 5:10 AM EDT) Only the most recent of7 resultswithin the time period is included. WBC 10.3 4.8 - 10.8 K/mcL LAB HEMETOLOGY METHOD 11/20/2024 11:00 AM EDT [facility] RBC 2.90(L) 3.80 - 4.80 M/mcL LAB HEMETOLOGY METHOD 11/20/2024 11:00 AM EDT [facility] Hemoglobin 8.2(L) 11.5 - 16.0 g/dL LAB HEMETOLOGY METHOD 11/20/2024 11:00 AM EDT [facility] Hematocrit 27.5(L) 35.0 - 47.0 % LAB HEMETOLOGY METHOD 11/20/2024 11:00 AM T [facility] MCV 95.8 79.0 - 98.0 FL LAB HEMETOLOGY METHOD 11/20/2024 11:00 AM EDT [facility] MCH 28.6 27.0 - 32.0 pcg LAB HEMETOLOGY METHOD 11/20/2024 11:00 AM [facility] MCHC 29.8(L) 32.0 - 37.0 g/dL LAB HEMETOLOGY METHOD 11/20/2024 11:00 AM [facility] RDW 17.1(H) 11.0 - 15.0 % LAB HEMETOLOGY METHOD 11/20/2024 11:00 AM [facility] Platelets 269 130 - 400 K/mcL LAB HEMETOLOGY METHOD 11/20/2024 11:00 AM [facility] MPV 11.3(H) 7.0 - 11.0 FL LAB HEMETOLOGY METHOD 11/20/2024 11:00 AM [facility] NRBC 0.0 <1.0 % LAB HEMETOLOGY METHOD 11/20/2024 11:00 AM EDT [facility] NRBC Absolute 0.00 <0.10 K/mcL LAB HEMETOLOGY METHOD 11/20/2024 11:00 AM [facility] Blood Venous blood specimen / Unknown Venipuncture / Unknown 11/20/2024 5:10 AM EDT 11/20/2024 10:17 AM EDT us Jose Burgos MD LAB BLOOD ORDERABLES Final Resu lt [facility] [address] [place] [address], * (ABNORMAL) Comprehensive metabolic panel (11/20/2024 5:10 AM EDT) Only the most recent of4 resultswithin the time period is included. Sodium 136 133 - 145 mmol/L LAB CHEMISTRY METHOD 11/20/2024 11:25 AM [facility] Potassium 3.9 3.5 - 5.5 mmol/L LAB CHEMISTRY METHOD 11/20/2024 11:25 AM [facility] Chloride 94(L) 96 - 110 mmol/L LAB CHEMISTRY METHOD 11/20/2024 11:25 AM [facility] CO2 35(H) 21 - 32 mmol/L LAB CHEMISTRY METHOD 11/20/2024 11:25 AM [facility] Anion Gap 7 3 - 11 LAB CHEMISTRY METHOD 11/20/2024 11:25 AM [facility] Glucose 76 70 - 100 mg/dL LAB CHEMISTRY METHOD 11/20/2024 11:25 AM [facility] BUN 14 5 - 25 mg/dL LAB CHEMISTRY METHOD 11/20/2024 11:25 AM [facility] Creatinine 0.87 0.50 - 1.10 mg/dL LAB CHEMISTRY METHOD 11/20/2024 11:25 AM [facility] eGFR 67 >=60 mL/min/1. 73m2 LAB CHEMISTRY METHOD 11/20/2024 11:25 AM [facility] Comment:Calculation based on the??Chronic Kidney Disease Epidemiology Collaboration (CKD-EPI) equation refit??without adjustment for race. BUN/Creatinine Ratio 16.1 LAB CHEMISTRY METHOD 11/20/2024 11:25 AM [facility] Calcium 8.7 8.5 - 10.5 mg/dL LAB CHEMISTRY METHOD 11/20[facility] ([facility]OT[facility] 21 10 - 42 unit/L LAB CHEMISTRY METHOD 11/20/2024 11:25 AM [facility] ALT (SGPT) 8(L) 10 - 60 unit/L LAB CHEMISTRY METHOD 11/20/2024 11:25 AM [facility] Alkaline Phosphatase 62 42 - 121 unit/L LAB CHEMISTRY METHOD 11/20/2024 11:25 AM [facility] Total Protein 6.7 6.0 - 8.0 g/dL LAB CHEMISTRY METHOD 11/20/2024 11:25 AM [facility] Albumin 2.4(L) 3.2 - 5.0 g/dL LAB CHEMISTRY METHOD 11/20/2024 11:25 AM [facility] Total Bilirubin 0.7 0.0 - 1.4 mg/dL LAB CHEMISTRY METHOD 11/20/2024 11:25 AM [facility] Blood Venous blood specimen / Unknown Venipuncture / Unknown 11/20/2024 5:10 AM EDT 11/20/2024 10:17 AM EDT Jose Burgos MD LAB BLOOD ORDERABLES Final Resu lt [facility] [address] [place] [address], * (ABNORMAL) Basic metabolic panel (11/18/2024 9:30 AM EDT) Only the most recent of3 resultswithin the time period is included. Sodium 135 133 - 145 mmol/L LAB CHEMISTRY METHOD 11/18/2024 12:40 PM [facility] Potassium 3.7 3.5 - 5.5 mmol/L LAB CHEMISTRY METHOD 11/18/2024 12:40 PM [facility] Chloride 92(L) 96 - 110 mmol/L LAB CHEMISTRY METHOD 11/18/2024 12:40 PM EDT [facility] CO2 37(H) 21 - 32 mmol/L LAB CHEMISTRY METHOD 11/18/2024 12:40 PM [facility] Anion Gap 6 3 - 11 LAB CHEMISTRY METHOD 11/18/2024 12:40 PM [facility] Glucose 97 70 - 100 mg/dL LAB CHEMISTRY METHOD 11/18/2024 12:40 PM [facility] BUN 12 5 - 25 mg/dL LAB CHEMISTRY METHOD 11/18/2024 12:40 PM [facility] Creatinine 0.74 0.50 - 1.10 mg/dL LAB CHEMISTRY METHOD 11/18/2024 12:40 PM [facility] eGFR 81 >=60 mL/min/1. 73m2 LAB CHEMISTRY METHOD 11/18/2024 12:40 PM [facility] Comment:Calculation based on the??Chronic Kidney Disease Epidemiology Collaboration (CKD-EPI) equation refit??without adjustment for race. BUN/Creatinine Ratio 16.2 LAB CHEMISTRY METHOD 11/18/2024 12:40 PM [facility] Calcium 9.9 8.5 - 10.5 mg/dL LAB CHEMISTRY METHOD 11/18/2024 12:40 PM [facility] Blood Venous blood specimen / Unknown Venipuncture / Unknown 11/18/2024 9:30 AM EDT 11/18/2024 11:33 AM EDT us Jose Burgos MD LAB BLOOD ORDERABLES Final Resu lt [facility] [address] [place] [address], * (ABNORMAL) Iron and TIBC (11/01/2024 6:55 AM EDT) Only the most recent of2 resultswithin the time period is included. Pathologist [facility] Iron 10(L) 40 - 150 mcg/dL LAB CHEMISTRY METHOD 11/01/2024 10:39 AM EDT [facility] TIBC 176(L) 250 - 450 mcg/dL LAB CHEMISTRY METHOD 11/01/2024 10:39 AM EDT [facility] Iron Saturation 6(L) 15 - 50 % LAB CHEMISTRY METHOD 11/01/2024 10:39 AM EDT [facility] Blood Venous blood specimen / Unknown Venipuncture / Unknown 11/01/2024 6:55 AM EDT 11/01/2024 9:45 AM EDT us Jose Burgos MD LAB BLOOD ORDERABLES Final Resu lt Performing Organization Address [facility]/ZIP Co de Phone Number [facility] [address] [place] [address], * Folate (11/01/2024 6:55 AM EDT) [facility] Folate 3.2 2.8 - 17.0 ng/ml LAB CHEMISTRY METHOD 11/01/2024 11:01 AM EDT [facility] Blood Venous blood specimen / Unknown Venipuncture / Unknown 11/01/2024 6:55 AM EDT 11/01/2024 9:45 AM EDT us Jose Burgos MD LAB BLOOD ORDERABLES Final Resu lt Performing Organization Address City/[facility]/ZIP Co de Phone Number [facility] [address] [place] [address], [place] [phone] * (ABNORMAL) Ferritin (11/01/2024 6:55 AM EDT) Only the most recent of2 resultswithin the time period is included. [facility] Ferritin 889(H) 8 - 252 ng/mL LAB CHEMISTRY METHOD 11/01/2024 11:01 AM EDT [facility] Blood Venous blood specimen / Unknown Venipuncture / Unknown 11/01/2024 6:55 AM EDT 11/01/2024 9:45 AM EDT us Jose Burgos MD LAB BLOOD ORDERABLES Final Resu lt Performing Organization Address City/[facility]/ZIP Co de Phone Number [facility] [address] [place] [address], [place] [phone] * (ABNORMAL) Vitamin B12 (11/01/2024 6:55 AM EDT) Only the most recent of2 resultswithin the time period is included. [facility] Vitamin B-12 1,691(H) 250 - 900 pcg/mL LAB CHEMISTRY METHOD 11/01/2024 11:01 AM EDT [facility] Blood Venous blood specimen / Unknown Venipuncture / Unknown 11/01/2024 6:55 AM EDT 11/01/2024 9:45 AM EDT us Jose Burgos MD LAB BLOOD ORDERABLES Final Resu lt Performing Organization Address City/[facility]/ZIP Co de Phone Number [facility] [address] [place] [address], [place] [phone] * (ABNORMAL) Vitamin B12 and folate (10/31/2024 7:35 AM EDT) [facility] Vitamin B-12 1,627(H) 250 - 900 pcg/mL LAB CHEMISTRY METHOD 10/31/2024 8:20 PM EDT [facility] Folate 2.9 2.8 - 17.0 ng/ml LAB CHEMISTRY METHOD 10/31/2024 8:20 PM EDT [facility] Blood Venous blood specimen / Unknown Venipuncture / Unknown 10/31/2024 7:35 AM EDT 10/31/2024 10:09 AM EDT us Jose Burgos MD LAB BLOOD ORDERABLES Final Resu lt [facility] [address] [place] [address], [place] [phone] * (ABNORMAL) Urinalysis with reflex microscopic (10/27/2024 8:00 AM EDT) Specific [place] Urine 1.019 1.003 - 1.030 LAB URINALYSIS - AUTOMATED METHOD 10/27/2024 9:40 AM [facility] pH, Urine 5.5 5.0 - 8.0 pH LAB URINALYSIS - AUTOMATED METHOD 10/27/2024 9:40 AM [facility] Leukocytes, Urine Small(A) Negative LAB URINALYSIS - AUTOMATED METHOD 10/27/2024 9:40 AM [facility] Nitrite, Urine Negative Negative LAB URINALYSIS - AUTOMATED METHOD 10/27/2024 9:40 AM [facility] Protein, Urine 30(A) <=Trace mg/dL LAB URINALYSIS - AUTOMATED METHOD 10/27/2024 9:40 AM [facility] Glucose, Urine Negative Negative mg/dL LAB URINALYSIS - AUTOMATED METHOD 10/27/2024 9:40 AM [facility] Ketones, Urine Negative Negative mg/dL LAB URINALYSIS - AUTOMATED METHOD 10/27/2024 9:40 AM [facility] Urobilinogen, Urine 1.0 0.2 - 1.0 mg/dL LAB URINALYSIS - AUTOMATED METHOD 10/27/2024 9:40 AM [facility] Bilirubin, Urine Small(A) Negative LAB URINALYSIS - AUTOMATED METHOD 10/27/2024 9:40 AM [facility] Blood, Urine Trace(A) Negative LAB URINALYSIS - AUTOMATED METHOD 10/27/2024 9:40 AM EDT [facility] RBC, Urine 10(H) 0 - 4 /HPF LAB URINALYSIS - AUTOMATED METHOD 10/27/2024 9:40 AM EDT [facility] WBC, Urine 7.2(H) 0 - 4 /HPF LAB URINALYSIS - AUTOMATED METHOD 10/27/2024 9:40 AM [facility] Squamous Epithelial, Urine 38 0 - 60 /LPF LAB URINALYSIS - AUTOMATED METHOD 10/27/2024 9:40 AM [facility] Bacteria, Urine Negative Negative /HPF LAB URINALYSIS - AUTOMATED METHOD 10/27/2024 9:40 AM [facility] Hyaline Casts, Urine 6.4(H) 0 - 3 /LPF LAB URINALYSIS - AUTOMATED METHOD 10/27/2024 9:40 AM [facility] Urine Urine specimen obtained by clean catch procedure / Unknown Non-blood Collection / Unknown 10/27/2024 8:00 AM EDT 10/27/2024 8:31 AM EDT us Purvi MOSS LAB URINE ORDERABLES Final Resul t [facility] [address] [place] [address], * (ABNORMAL) CBC auto differential (10/27/2024 5:03 AM EDT) Only the most recent of3 resultswithin the time period is included. WBC 13.4(H) 4.8 - 10.8 K/mcL LAB HEMETOLOGY METHOD 10/27/2024 8:52 AM [facility] RBC 2.30(L) 3.80 - 4.80 M/mcL LAB HEMETOLOGY METHOD 10/27/2024 8:52 AM [facility] Hemoglobin 6.9(L) 11.5 - 16.0 g/dL LAB HEMETOLOGY METHOD 10/27/2024 8:52 AM [facility] Hematocrit 22.4(L) 35.0 - 47.0 % LAB HEMETOLOGY METHOD 10/27/2024 8:52 AM [facility] MCV 97.8 79.0 - 98.0 FL LAB HEMETOLOGY METHOD 10/27/2024 8:52 AM [facility] MCH 30.1 27.0 - 32.0 pcg LAB HEMETOLOGY METHOD 10/27/2024 8:52 AM [facility] MCHC 30.8(L) 32.0 - 37.0 g/dL LAB HEMETOLOGY METHOD 10/27/2024 8:52 AM [facility] RDW 16.4(H) 11.0 - 15.0 % LAB HEMETOLOGY METHOD 10/27/2024 8:52 AM [facility] Platelets 153 130 - 400 K/mcL LAB HEMETOLOGY METHOD 10/27/2024 8:52 AM [facility] MPV 11.2(H) 7.0 - 11.0 FL LAB HEMETOLOGY METHOD 10/27/2024 8:52 AM [facility] NRBC 0.0 <1.0 % LAB HEMETOLOGY METHOD 10/27/2024 8:52 AM [facility] NRBC Absolute 0.00 <0.10 K/mcL LAB HEMETOLOGY METHOD 10/27/2024 8:52 AM [facility] Neutrophils Relative 83.3 % LAB HEMETOLOGY METHOD 10/27/2024 8:52 AM [facility] Lymphocytes Relative 5.4 % LAB HEMETOLOGY METHOD 10/27/2024 8:52 AM [facility] Monocytes Relative 6.4 % LAB HEMETOLOGY METHOD 10/27/2024 8:52 AM EDT [facility] Eosinophils Relative 3.9 % LAB HEMETOLOGY METHOD 10/27/2024 8:52 AM EDT [facility] Basophils Relative 0.3 % LAB HEMETOLOGY METHOD 10/27/2024 8:52 AM EDT [facility] Immature Granulocytes Relative 0.7 % LAB HEMETOLOGY METHOD 10/27/2024 8:52 AM EDT [facility] Neutrophils Absolute 11.20(H) 1.50 - 7.00 K/mcL LAB HEMETOLOGY METHOD 10/27/2024 8:52 AM EDT [facility] Lymphocytes Absolute 0.72(L) 1.00 - 5.00 K/mcL LAB HEMETOLOGY METHOD 10/27/2024 8:52 AM EDT [facility] [facility] Monocytes Absolute 0.86 0.20 - 1.00 K/mcL LAB HEMETOLOGY METHOD 10/27/2024 8:52 AM EDT [facility] Eosinophils Absolute 0.52(H) 0.00 - 0.50 K/mcL LAB HEMETOLOGY METHOD 10/27/2024 8:52 AM EDT [facility] Basophils Absolute 0.04 0.00 - 0.20 K/mcL LAB HEMETOLOGY METHOD 10/27/2024 8:52 AM EDT [facility] Immature Granulocytes Absolute 0.10(H) 0.00 - 0.03 K/mcL LAB HEMETOLOGY METHOD 10/27/2024 8:52 AM EDT [facility] Blood Venous blood specimen / Unknown Venipuncture / Unknown 10/27/2024 5:03 AM EDT 10/27/2024 8:06 AM EDT us Vibha Briggs MD LAB BLOOD ORDERABLES Fin al Result [facility] [address] [place] [address], * Culture urine (10/26/2024 11:30 AM EDT) Culture, Urine No growth 10/28/2024 1:05 PM EDT [facility] Urine Urine specimen obtained by clean catch procedure / Unknown Non-blood Collection / Unknown 10/26/2024 11:30 AM EDT 10/27/2024 8:31 AM EDT Purvi MOSS LAB MICROBIOLOGY - GENERAL ORDER SHAR Final Result [facility] [address] [place] [address], * Culture blood (10/26/2024 5:16 AM EDT) Only the most recent of2 resultswithin the time period is included. Culture, Blood No growth at 5 days 10/31/2024 10:01 AM EDT [facility] Blood Venipuncture / Unknown 10/26/2024 5:16 AM EDT 10/26/2024 9:38 AM EDT Vibha Briggs MD LAB MICROBIOLOGY - GENER AL ORDERABLES Final Result [facility] [address] [place] [address], * (ABNORMAL) Sedimentation rate (10/25/2024 5:00 AM EDT) Only the most recent of3 resultswithin the time period is included. Sed Rate 65(H) 0 - 30 mm/hr LAB HEMETOLOGY METHOD 10/25/2024 1:03 PM EDT [facility] Blood Venous blood specimen / Unknown Venipuncture / Unknown 10/25/2024 5:00 AM EDT 10/25/2024 10:06 AM EDT us Purvi MOSS LAB BLOOD ORDERABLES Final Resul t Performing Organization Address City/[facility]/ZIP Co de Phone Number [facility] [address] [place] [address], [place] [phone] * (ABNORMAL) C-reactive protein (10/25/2024 5:00 AM EDT) [facility] C-Reactive Protein 10.40(H) <=0.50 mg/dL LAB CHEMISTRY METHOD 10/25/2024 11:44 AM EDT [facility] Blood Venous blood specimen / Unknown Venipuncture / Unknown 10/25/2024 5:00 AM EDT 10/25/2024 10:06 AM EDT us Purvi MOSS LAB BLOOD ORDERABLES Final Resul t Performing Organization Address [facility] Co de Phone Number [facility] [address] [place] [address], [place] [phone] * (ABNORMAL) Prothrombin time with INR (09/17/2024 5:13 AM EST) [facility] Protime 23.2(H) 10.6 - 13.9 sec LAB COAGULATION METHOD 09/17/2024 7:05 AM EST [facility] INR 1.9 LAB COAGULATION METHOD 09/17/2024 7:05 AM EST [facility] Blood Venous blood specimen / Unknown Venipuncture / Unknown 09/17/2024 5:13 AM EST 09/17/2024 6:34 AM EST us Moe Rodriguez MD LAB BLOOD ORDERABLES Final Res ult Performing Organization Address City/[facility]/ZIP Co de Phone Number [facility] [address] [place] [address], [place] [phone] * Phosphorus (09/16/2024 10:38 AM EST) Pathologist [facility] Phosphorus 3.1 2.5 - 4.5 mg/dL LAB CHEMISTRY METHOD 09/16/2024 1:09 PM EST [facility] Blood Venous blood specimen / Unknown Venipuncture / Unknown 09/16/2024 10:38 AM EST 09/16/2024 11:30 AM EST Moe Rodriguez MD LAB BLOOD ORDERABLES Final Res ult Performing Organization Address City/[facility]/ZIP Co de Phone Number [facility] [address] [place] [address], * Magnesium (09/16/2024 10:38 AM EST) Only the most recent of2 resultswithin the time period is included. [facility] Magnesium 2.0 1.9 - 2.6 mg/dL LAB CHEMISTRY METHOD 09/16/2024 1:09 PM [facility] Blood Venous blood specimen / Unknown Venipuncture / Unknown 09/16/2024 10:38 AM EST 09/16/2024 11:30 AM EST Moe Rodriguez MD LAB BLOOD ORDERABLES Final Res ult Performing Organization Address City/[facility]/ZIP Co de Phone Number [facility] [address] [place] [address], * Borrelia burgdorferi antibody (09/14/2024 6:47 AM EST) [facility] Lyme Ab Negative Negative LAB CHEMISTRY METHOD 09/14/2024 1:19 PM [facility] Comment: No laboratory evidence of infection [...] ORDERABLES Final Res ult Performing Organization Address City/[facility]/ZIP Co de Phone Number [facility] [address] [place] [address], [place] [phone] * Vitamin D 25 hydroxy (09/14/2024 6:47 AM EST) Vit D, 25-Hydroxy 35.7 30.0 - 80.0 ng/mL LAB CHEMISTRY METHOD 09/14/2024 10:33 AM EST [facility] Blood Venous blood specimen / Unknown Venipuncture / Unknown 09/14/2024 6:47 AM EST 09/14/2024 8:55 AM EST Moe Rodriguez MD LAB BLOOD ORDERABLES Final Res ult Performing Organization Address [facility] Co de Phone Number [facility] [address] [place] [address], [place] [phone] * Uric acid (09/14/2024 6:47 AM EST) Only the most recent of2 resultswithin the time period is included. Uric Acid 5.9 3.1 - 7.8 mg/dL LAB CHEMISTRY METHOD 09/14/2024 10:26 AM EST [facility] Blood Venous blood specimen / Unknown Venipuncture / Unknown 09/14/2024 6:47 AM EST 09/14/2024 8:55 AM EST Moe Rodriguez MD LAB BLOOD ORDERABLES Final Res ult Performing Organization Address City/[facility]/ZIP Co de Phone Number [facility] [address] [place] [address], [place] [phone] * Thyroid stimulating hormone (09/14/2024 6:47 AM EST) TSH 1.49 0.40 - 4.00 mcIU/mL LAB CHEMISTRY METHOD 09/14/2024 10:33 AM EST [facility] Blood Venous blood specimen / Unknown Venipuncture / Unknown 09/14/2024 6:47 AM EST 09/14/2024 8:55 AM EST Moe Rodriguez MD LAB BLOOD ORDERABLES Final Res ult Performing Organization Address City/[facility]/ZIP Co de Phone Number [facility] [address] [place] [address], [place] [phone] * Creatine kinase (09/14/2024 6:47 AM EST) Pathologist [facility] Total CK 49 22 - 269 unit/L LAB CHEMISTRY METHOD 09/14/2024 10:52 AM EST [facility] Blood Venous blood specimen / Unknown Venipuncture / Unknown 09/14/2024 6:47 AM EST 09/14/2024 8:55 AM EST Moe Rodriguez MD LAB BLOOD ORDERABLES Final Res ult Performing Organization Address City/[facility]/ZIP Co de Phone Number [facility] [address] [place] [address], [place] [phone] * SST tube (09/13/2024 8:53 AM EST) Pathologist [facility] Extra Tube Hold for add-ons. 09/13/2024 12:01 PM EST [facility] Comment:Auto resulted. Blood Venous blood specimen / Unknown Venipuncture / Unknown 09/13/2024 8:53 AM EST 09/13/2024 10:35 AM EST Moe Rodriguez MD LAB BLOOD ORDERABLES Final Res ult [facility] ([facility]) [facility] LAB [address] [place] [address], from Last 3 Months Insurance MEDICARE [facility] Care Teams Copping Machine Operator Relationship Specialty Start Date End Date Moe Rodriguez MD [address] [place] [id number] PCP - General Internal Medicine 09/13/24
--- OUTSIDE RECORDS SUMMARY | 2024-11-23 09:26 | XMS_ITS | Encounter Summary ---
Author Organization [facility] Address [address] [place] [address] Care Team Providers Care Furniture Maker Name Role Phone Moe Rodriguez MD Primary Care Provider [phone] Encounter Details Date Type Department Care Team (Late st Contact Info) Description 09/25/2024 Lab Requisition [facility] - Main Lab [address] [facility] [employer] [place] [address] Moe Rodriguez MD [address] [place] [address] Encounter for other general examination Social History [...] Associated Diagnosis Comments COMPLETE BLOOD COUNT Routine 09/25/2024 6:23 AM EST Encounter for other general examination documented in this encounter Results * (ABNORMAL) Complete blood count (09/25/2024 6:23 AM EST) WBC 6.5 4.8 - 10.8 K/mcL LAB HEMETOLOGY METHOD 09/25/2024 1:46 PM EST [facility] RBC 3.60(L) 3.80 - 4.80 M/mcL LAB HEMETOLOGY METHOD 09/25/2024 1:46 PM EST [facility] Hemoglobin 10.7(L) 11.5 - 16.0 g/dL LAB HEMETOLOGY METHOD 09/25/2024 1:46 PM EST [facility] Hematocrit 32.7(L) 35.0 - 47.0 % LAB HEMETOLOGY METHOD 09/25/2024 1:46 PM [facility] MCV 91.6 79.0 - 98.0 FL LAB HEMETOLOGY METHOD 09/25/2024 1:46 PM EST [facility] MCH 30.0 27.0 - 32.0 pcg LAB HEMETOLOGY METHOD 09/25/2024 1:46 PM [facility] MCHC 32.7 32.0 - 37.0 g/dL LAB HEMETOLOGY METHOD 09/25/2024 1:46 PM [facility] RDW 15.7(H) 11.0 - 15.0 % LAB HEMETOLOGY METHOD 09/25/2024 1:46 PM [facility] Platelets 70(L) 130 - 400 K/mcL LAB HEMETOLOGY METHOD 09/25/2024 1:46 PM [facility] Comment:previously verified by slide MPV 12.3(H) 7.0 - 11.0 FL LAB HEMETOLOGY METHOD 09/25/2024 1:46 PM [facility] NRBC 0.0 <1.0 % LAB HEMETOLOGY METHOD 09/25/2024 1:46 PM [facility] NRBC Absolute 0.00 <0.10 K/mcL LAB HEMETOLOGY METHOD 09/25/2024 1:46 PM [facility] Blood Venous blood specimen / Unknown Venipuncture / Unknown 09/25/2024 6:23 AM EST 09/25/2024 12:33 PM EST us Moe Rodriguez MD LAB BLOOD ORDERABLES Final Res ult [facility] [address] [place] [address], documented in this encounter Visit Diagnoses Diagnosis Encounter for other general examination documented in this encounter Care Teams Furniture Maker Relationship Specialty Start Date End Date Moe Rodriguez MD [address] [place] [address] PCP - General Internal Medicine 09/13/24 documented as of this encounter
--- OUTSIDE RECORDS SUMMARY | 2024-11-23 09:26 | XMS_ITS | Encounter Summary ---
Author Organization [facility] Address [address] [place] [address] Care Team Providers Care Hoist Cylinder Loader Name Role Phone Moe Rodriguez MD Primary Care Provider [phone] Encounter Details Date Type Department Care Team (Late st Contact Info) Description 11/01/2024 Lab Requisition [facility] - Main Lab [address] [facility] [place] [address] Jose Burgos MD [address] [place] [phone] Endocarditis, valve unspecified Social History Tobacco Use Types Packs/Day Years Used Date Smoking Tobacco: Never Assessed Comments Unknown Sex and Gender Information Value Date Recorded Sex Assigned at Not on file Legal Sex Female 10:19 PM EST Gender Identity Not on file Sexual Orientation Not on file documented as of this encounter Plan of Treatment Not on file documented as of this encounter Visit Diagnoses Diagnosis Endocarditis, valve unspecified documented in this encounter Care Teams Hoist Cylinder Loader Relationship Specialty Start Date End Date Moe Rodriguez MD [address] [place] [phone] PCP - General Internal Medicine 09/13/24 documented as of this encounter
--- OUTSIDE RECORDS SUMMARY | 2024-11-23 09:26 | XMS_ITS | Encounter Summary ---
Author Organization [facility] Address [address] [place] [address] Care Team Providers Care Cork Compounder Name Role Phone Moe Rodriguez MD Primary Care Provider [phone] Encounter Details Date Type Department Care Team (Late st Contact Info) Description 11/12/[address] [facility] - Main Lab [address] [facility] [place] [address] [address] Jose Burgos MD [address] [place] [phone] Endocarditis, valve unspecified Social History Tobacco Use [...] unspecified documented in this encounter Care Teams Cork Compounder Relationship Specialty Start Date End Date Moe Rodriguez MD [address] [place] [phone] PCP - General Internal Medicine 09/13/24 documented as of this encounter
--- OUTSIDE RECORDS SUMMARY | 2024-11-23 09:26 | XMS_ITS | Encounter Summary ---
Author Organization [facility] Address [address] [place] [address] Care Team Providers Care Credit Analyst Name Role Phone Moe Rodriguez MD Primary Care Provider [phone] Encounter Details Date Type Department Care Team (Late st Contact Info) Description 10/26/2024 Lab Requisition [facility] - Main Lab [address] [place] [address] Vibha Briggs MD [address] [address] Elevated white blood cell count, unspecified Social History Tobacco Use Types Packs/Day [...] Procedure Name Priority Date/Time Associated Diagnosis Comments CULTURE BLOOD STAT 10/26/2024 5:16 AM EDT Elevated white blood cell count, unspecified documented in this encounter Results * Culture blood (10/26/2024 5:16 AM EDT) Culture, Blood No growth at 5 days 10/31/2024 10:01 AM EDT [facility] ([facility]) [facility] Blood Venipuncture / Unknown 10/26/2024 5:16 AM EDT 10/26/2024 9:38 AM EDT us Vibha Briggs MD LAB MICROBIOLOGY - GENER AL ORDERABLES Final Result [facility] [address] [place] [address], documented in this encounter Visit Diagnoses Diagnosis Elevated white blood cell count, unspecified documented in this encounter Care Teams Credit Analyst Relationship Specialty Start Date End Date Moe Rodriguez MD [address] [place] [address] PCP - General Internal Medicine 09/13/24 documented as of this encounter
--- OUTSIDE RECORDS SUMMARY | 2024-11-23 09:26 | XMS_ITS | Encounter Summary ---
Author Organization [facility] Address [address] [place] [address] Care Team Providers Care Supply And Distribution Manager Name Role Phone Moe Rodriguez MD Primary Care Provider [phone] Encounter Details Date Type Department Care Team (Late st Contact Info) Description 10/27/[address] [facility] - Main Lab [address] [facility] [place] [address] Purvi Briscoe PA [address] [place] [address] Retention of urine, unspecified; Elevated white blood cell count, unspecified Social [...] Procedure Name Priority Date/Time Associated Diagnosis Comments URINALYSIS WITH REFLEX MICROSCOPIC Routine 10/27/2024 8:00 AM EDT Retention of urine, unspecified Elevated white blood cell count, unspecified URINALYSIS WITH REFLEX MICROSCOPIC Routine 10/27/2024 8:00 AM EDT Retention of urine, unspecified Elevated white blood cell count, unspecified CULTURE URINE Routine 10/26/2024 11:30 AM EDT Retention of urine, unspecified Elevated white blood cell count, unspecified documented in this encounter Results * (ABNORMAL) Urinalysis with reflex microscopic (10/27/2024 8:00 AM EDT) Specific [place] Urine 1.019 1.003 - 1.030 LAB URINALYSIS - AUTOMATED METHOD 10/27/2024 9:40 AM [facility] pH, Urine 5.5 5.0 - 8.0 pH LAB URINALYSIS - AUTOMATED METHOD 10/27/2024 9:40 AM [facility] Leukocytes, Urine Small(A) Negative LAB URINALYSIS - AUTOMATED METHOD 10/27/2024 9:40 AM [facility] Nitrite, Urine Negative Negative LAB URINALYSIS - AUTOMATED METHOD 10/27/2024 9:40 AM [facility] Protein, Urine 30(A) <=Trace mg/dL LAB URINALYSIS - AUTOMATED METHOD 10/27/2024 9:40 AM [facility] Glucose, Urine Negative Negative mg/dL LAB URINALYSIS - AUTOMATED METHOD 10/27/2024 9:40 AM [facility] Ketones, Urine Negative Negative mg/dL LAB URINALYSIS - AUTOMATED METHOD 10/27/2024 9:40 AM [facility] Urobilinogen, Urine 1.0 0.2 - 1.0 mg/dL LAB URINALYSIS - AUTOMATED METHOD 10/27/2024 9:40 AM [facility] Bilirubin, Urine Small(A) Negative LAB URINALYSIS - AUTOMATED METHOD 10/27/2024 9:40 AM [facility] Blood, Urine Trace(A) Negative LAB URINALYSIS - AUTOMATED METHOD 10/27/2024 9:40 AM [facility] RBC, Urine 10(H) 0 - 4 /HPF LAB URINALYSIS - AUTOMATED METHOD 10/27/2024 9:40 AM [facility] WBC, Urine 7.2(H) 0 - 4 /HPF LAB URINALYSIS - AUTOMATED METHOD 10/27/2024 9:40 AM EDT [facility] Squamous Epithelial, Urine 38 0 - 60 /LPF LAB URINALYSIS - AUTOMATED METHOD 10/27/2024 9:40 AM EDT [facility] Bacteria, Urine Negative Negative /HPF LAB URINALYSIS - AUTOMATED METHOD 10/27/2024 9:40 AM [facility] Hyaline Casts, Urine 6.4(H) 0 - 3 /LPF LAB URINALYSIS - AUTOMATED METHOD 10/27/2024 9:40 AM T [facility] Urine Urine specimen obtained by clean catch procedure / Unknown Non-blood Collection / Unknown 10/27/2024 8:00 AM EDT 10/27/2024 8:31 AM EDT us Purvi MSOS LAB URINE ORDERABLES Final Resul t Performing Organization Address City/[facility]/ZIP Co de Phone Number [facility] [address] [place] [address], [place] [phone] * Culture urine (10/26/2024 11:30 AM EDT) Culture, Urine No growth 10/28/2024 1:[facility] PM [facility] Urine Urine specimen obtained by clean catch procedure / Unknown Non-blood Collection / Unknown 10/26/2024 11:30 AM EDT 10/27/2024 8:31 AM EDT us Purvi MOSS LAB MICROBIOLOGY - GENERAL ORDER SHAR Final Result Performing Organization Address City/[facility]/ZIP Co de Phone Number [facility] [address] [place] [address], [place] [phone] documented in this encounter Visit Diagnoses Diagnosis Retention of urine, unspecified Elevated white blood cell count, unspecified documented in this encounter Care Teams Supply And Distribution Manager Relationship Specialty Start Date End Date Moe Rodriguez MD [address] [place] [phone] PCP - General Internal Medicine 09/13/24 documented as of this encounter
--- OUTSIDE RECORDS SUMMARY | 2024-11-23 09:26 | XMS_ITS | Encounter Summary ---
Author Organization [facility] Address [address] [place] [address] Care Team Providers Care Dishtank Operator Name Role Phone Moe Rodriguez MD Primary Care Provider [phone] Encounter Details Date Type Department Care Team (Late st Contact Info) Description 11/08/2024 Lab Requisition [facility] - Main Lab 299 [facility] [place] [address] Jose Burgos MD [address] [place] [phone] Endocarditis, valve unspecified Social History Tobacco Use [...] unspecified documented in this encounter Care Teams Dishtank Operator Relationship Specialty Start Date End Date Moe Rodriguez MD [address] [place] [phone] PCP - General Internal Medicine 09/13/24 documented as of this encounter
--- OUTSIDE RECORDS SUMMARY | 2024-11-23 09:26 | XMS_ITS | Encounter Summary ---
Author Organization [facility] Address [address] [place] [address] Care Team Providers Care Anvilsmith Name Role Phone Moe Rodriguez MD Primary Care Provider [phone] Encounter Details Date Type Department Care Team (Late st Contact Info) Description 10/26/2024 Lab Requisition [facility] - Main Lab 299 [facility] [employer] [place] [address] Vibha Briggs MD [address] [phone] Elevated white blood cell count, unspecified Social [...] Procedure Name Priority Date/Time Associated Diagnosis Comments CBC WITH AUTO DIFFERENTIAL STAT 10/26/2024 5:00 AM EDT Elevated white blood cell count, unspecified CULTURE BLOOD STAT 10/26/2024 5:00 AM EDT Elevated white blood cell count, unspecified CBC AND DIFFERENTIAL Routine 10/26/2024 5:00 AM EDT Elevated white blood cell count, unspecified documented in this encounter Results * (ABNORMAL) CBC auto differential (10/26/2024 5:00 AM EDT) WBC 16.2(H) 4.8 - 10.8 K/[facility] METHOD 10/26/2024 9:51 AM [facility] RBC 2.70(L) 3.80 - 4.80 M/mcL LAB HEMETOLOGY METHOD 10/26/2024 9:51 AM [facility] Hemoglobin 8.2(L) 11.5 - 16.0 g/dL LAB HEMETOLOGY METHOD 10/26/2024 9:51 AM [facility] Hematocrit 27.0(L) 35.0 - 47.0 % LAB HEMETOLOGY METHOD 10/26/2024 9:51 AM [facility] MCV 99.6(H) 79.0 - 98.0 FL LAB HEMETOLOGY METHOD 10/26/2024 9:51 AM [facility] MCH 30.3 27.0 - 32.0 pcg LAB HEMETOLOGY METHOD 10/26/2024 9:51 AM [facility] MCHC 30.4(L) 32.0 - 37.0 g/dL LAB HEMETOLOGY METHOD 10/26/2024 9:51 AM [facility] RDW 16.4(H) 11.0 - 15.0 % LAB HEMETOLOGY METHOD 10/26/2024 9:51 AM [facility] Platelets 158 130 - 400 K/mcL LAB HEMETOLOGY METHOD 10/26/2024 9:51 AM [facility] MPV 11.5(H) 7.0 - 11.0 FL LAB HEMETOLOGY METHOD 10/26/2024 9:51 AM [facility] NRBC 0.0 <1.0 % LAB HEMETOLOGY METHOD 10/26/2024 9:51 AM [facility] NRBC Absolute 0.00 <0.10 K/mcL LAB HEMETOLOGY METHOD 10/[facility]24 [facility] Neutrophils Relative 83.3 % LAB HEMETOLOGY METHOD 10/26/2024 9:51 AM [facility] Lymphocytes Relative 4.7 % LAB HEMETOLOGY METHOD 10/26/2024 9:51 AM [facility] Monocytes Relative 6.2 % LAB HEMETOLOGY METHOD 10/26/2024 9:51 AM [facility] Eosinophils Relative 4.7 % LAB HEMETOLOGY METHOD 10/26/2024 9:51 AM [facility] Basophils Relative 0.5 % LAB HEMETOLOGY METHOD 10/26/2024 9:51 AM [facility] Immature Granulocytes Relative 0.6 % LAB HEMETOLOGY METHOD 10/26/2024 9:51 AM [facility] Neutrophils Absolute 13.51(H) 1.50 - 7.00 K/mcL LAB HEMETOLOGY METHOD 10/26/2024 9:51 AM [facility] Lymphocytes Absolute 0.76(L) 1.00 - 5.00 K/mcL LAB HEMETOLOGY METHOD 10/26/2024 9:51 AM [facility] Monocytes Absolute 1.01(H) 0.20 - 1.00 K/mcL LAB HEMETOLOGY METHOD 10/26/2024 9:51 AM [facility] Eosinophils Absolute 0.76(H) 0.00 - 0.50 K/mcL LAB HEMETOLOGY METHOD 10/26/2024 9:51 AM [facility] Basophils Absolute 0.08 0.00 - 0.20 K/mcL LAB HEMETOLOGY METHOD 10/26/2024 9:51 AM [facility] Immature Granulocytes Absolute 0.09(H) 0.00 - 0.03 K/mcL LAB HEMETOLOGY METHOD 10/26/2024 9:51 AM [facility] Blood Venous blood specimen / Unknown Venipuncture / Unknown 10/26/2024 5:00 AM EDT 10/26/2024 9:34 AM EDT Vibha Briggs MD LAB BLOOD ORDERABLES Fin al Result Performing Organization Address [facility]/ZIP Co de Phone Number [facility] [address] [place] [address], [place] [phone] * Culture blood (10/26/2024 5:00 AM EDT) Culture, Blood No growth at 5 days 10/31/2024 10:01 AM EDT [facility] Blood Venipuncture / Unknown 10/26/2024 5:00 AM EDT 10/26/2024 9:34 AM EDT Vibha Briggs MD LAB MICROBIOLOGY - GENER AL ORDERABLES Final Result Performing Organization Address [facility] Co de Phone Number [facility] [address] [place] [address], [place] [phone] documented in this encounter Visit Diagnoses Diagnosis Elevated white blood cell count, unspecified documented in this encounter Care Teams Anvilsmith Relationship Specialty Start Date End Date Moe Rodriguez MD [address] [place] [phone] PCP - General Internal Medicine 09/13/24 documented as of this encounter
--- OUTSIDE RECORDS SUMMARY | 2024-11-23 09:26 | XMS_ITS | Encounter Summary ---
Author Organization [facility] Address [address] [place] [address] Care Team Providers Care Violin Teacher Name Role Phone Moe Rodriguez MD Primary Care Provider [phone] Encounter Details Date Type Department Care Team (Late st Contact Info) Description 11/18/2024 Lab Requisition [facility] - Main Lab 299 [facility] [employer] [address] Jose Burgos MD [address] [place] [address] Non-ST elevation (NSTEMI) myocardial infarction (CMS/HCC V24, CMS/HCC V28) Social History Tobacco [...] Associated Diagnosis Comments COMPLETE BLOOD COUNT Routine 11/18/2024 9:30 AM EDT Non-ST elevation (NSTEMI) myocardial infarction (CMS/HCC V24, CMS/HCC V28) BASIC METABOLIC PANEL Routine 11/18/2024 9:30 AM EDT Non-ST elevation (NSTEMI) myocardial infarction (CMS/HCC V24, CMS/HCC V28) documented in this encounter Results * (ABNORMAL) Basic metabolic panel (11/18/2024 9:30 AM EDT) Sodium 135 133 - 145 mmol/L LAB CHEMISTRY METHOD 11/18/2024 12:40 PM [facility] Potassium 3.7 3.5 - 5.5 mmol/L LAB CHEMISTRY METHOD 11/18/2024 12:40 PM [facility] Chloride 92(L) 96 - 110 mmol/L LAB CHEMISTRY METHOD 11/18/2024 12:40 PM [facility] CO2 37(H) 21 - 32 mmol/L LAB CHEMISTRY METHOD 11/18/2024 12:40 PM [facility] Anion Gap 6 3 - 11 LAB CHEMISTRY METHOD 11/18/2024 12:40 PM [facility] Glucose 97 70 - 100 mg/dL LAB CHEMISTRY METHOD 11/18/2024 12:40 PM [facility] BUN 12 5 - 25 mg/dL LAB CHEMISTRY METHOD 11/18/2024 12:40 PM [facility] Creatinine 0.74 0.50 - 1.10 mg/dL LAB CHEMISTRY METHOD 11/18/2024 12:40 PM [facility] eGFR 81 >=60 mL/min/1. 73m2 LAB CHEMISTRY METHOD 11/18/2024 12:40 PM [facility] Comment:Calculation based on the??Chronic Kidney Disease Epidemiology Collaboration (CKD-EPI) equation refit??without adjustment for race. BUN/Creatinine Ratio 16.2 LAB CHEMISTRY METHOD 11/18/2024 12:40 PM [facility] Calcium 9.9 8.5 - 10.5 mg/dL LAB CHEMISTRY METHOD 11/18/2024 12:40 PM [facility] Blood Venous blood specimen / Unknown Venipuncture / Unknown 11/18/2024 9:30 AM EDT 11/18/2024 11:33 AM EDT us Jose Burgos MD LAB BLOOD ORDERABLES Final Resu lt [facility] [address] [place] [address], * (ABNORMAL) Complete blood count (11/18/2024 9:30 AM EDT) WBC 11.8(H) 4.8 - 10.8 K/mcL LAB HEMETOLOGY METHOD 11/18/2024 12:10 PM EDT [facility] RBC 2.90(L) 3.80 - 4.80 M/mcL LAB HEMETOLOGY METHOD 11/18/2024 12:10 PM EDT [facility] Hemoglobin 8.4(L) 11.5 - 16.0 g/dL LAB HEMETOLOGY METHOD 11/18/2024 12:10 PM EDT [facility] Hematocrit 27.7(L) 35.0 - 47.0 % LAB HEMETOLOGY METHOD 11/18/2024 12:10 PM EDT [facility] MCV 95.2 79.0 - 98.0 FL LAB HEMETOLOGY METHOD 11/18/2024 12:10 PM EDT [facility] MCH 28.9 27.0 - 32.0 pcg LAB HEMETOLOGY METHOD 11/18/2024 12:10 PM EDT [facility] MCHC 30.3(L) 32.0 - 37.0 g/dL LAB HEMETOLOGY METHOD 11/18/2024 12:10 PM EDT [facility] RDW 16.9(H) 11.0 - 15.0 % LAB HEMETOLOGY METHOD 11/18/2024 12:10 PM EDT [facility] Platelets 205 130 - 400 K/mcL LAB HEMETOLOGY METHOD 11/18/2024 12:10 PM EDT [facility] MPV 11.2(H) 7.0 - 11.0 FL LAB HEMETOLOGY METHOD 11/18/2024 12:10 PM EDT [facility] NRBC 0.2 <1.0 % LAB HEMETOLOGY METHOD 11/18/2024 12:10 PM EDT [facility] NRBC Absolute 0.02 <0.10 K/mcL LAB HEMETOLOGY METHOD 11/18/2024 12:10 PM EDT [facility] Blood Venous blood specimen / Unknown Venipuncture / Unknown 11/18/2024 9:30 AM EDT 11/18/2024 11:33 AM EDT us Jose Burgos MD LAB BLOOD ORDERABLES Final Resu lt [facility] [address] [place] [address], documented in this encounter Visit Diagnoses Diagnosis Non-ST elevation (NSTEMI) myocardial infarction (CMS/HCC V24, CMS/HCC V28) documented in this encounter Care Teams Violin Teacher Relationship Specialty Start Date End Date Moe Rodriguez MD [address] [place] [phone] PCP - General Internal Medicine 09/13/24 documented as of this encounter
--- OUTSIDE RECORDS SUMMARY | 2024-11-23 09:26 | XMS_ITS | Encounter Summary ---
Author Organization [facility] Address [address] [place] [address] Care Team Providers Care Cloth Finishing Range Back Tender Name Role Phone Moe Rodriguez MD Primary Care Provider [phone] Encounter Details Date Type Department Care Team (Late st Contact Info) Description 10/27/2024 Lab Requisition [facility] - Main Lab 299 [facility] [place] [address] Vibha Briggs MD [address] [phone] Endocarditis, valve unspecified Social History Tobacco Use [...] Associated Diagnosis Comments CBC WITH AUTO DIFFERENTIAL Routine 10/27/2024 5:03 AM EDT Endocarditis, valve unspecified CBC AND DIFFERENTIAL Routine 10/27/2024 5:03 AM EDT Endocarditis, valve unspecified documented in this encounter Results * (ABNORMAL) CBC auto differential (10/27/2024 5:03 AM EDT) WBC 13.4(H) 4.8 - 10.8 K/[facility] LAB HEMETOLOGY METHOD 10/27/2024 8:52 AM EDT [facility] RBC 2.30(L) 3.80 - 4.80 M/mcL LAB HEMETOLOGY METHOD 10/27/2024 8:52 AM [facility] Hemoglobin 6.9(L) 11.5 - 16.0 g/dL LAB HEMETOLOGY METHOD 10/27/2024 8:52 AM [facility] Hematocrit 22.4(L) 35.0 - 47.0 % LAB HEMETOLOGY METHOD 10/27/2024 8:52 AM [facility] MCV 97.8 79.0 - 98.0 FL LAB HEMETOLOGY METHOD 10/27/2024 8:52 AM [facility] MCH 30.1 27.0 - 32.0 pcg LAB HEMETOLOGY METHOD 10/27/2024 8:52 AM [facility] MCHC 30.8(L) 32.0 - 37.0 g/dL LAB HEMETOLOGY METHOD 10/27/2024 8:52 AM [facility] RDW 16.4(H) 11.0 - 15.0 % LAB HEMETOLOGY METHOD 10/27/2024 8:52 AM [facility] Platelets 153 130 - 400 K/mcL LAB HEMETOLOGY METHOD 10/27/2024 8:52 AM [facility] MPV 11.2(H) 7.0 - 11.0 FL LAB HEMETOLOGY METHOD 10/27/2024 8:52 AM [facility] NRBC 0.0 <1.0 % LAB HEMETOLOGY METHOD 10/27/2024 8:52 AM [facility] NRBC Absolute 0.00 <0.10 K/mcL LAB HEMETOLOGY METHOD 10/27/2024 8:52 AM [facility] Neutrophils Relative 83.3 % LAB HEMETOLOGY METHOD 10/27/2024 8:52 AM [facility] Lymphocytes Relative 5.4 % LAB HEMETOLOGY METHOD 10/27/2024 8:52 AM [facility] Monocytes Relative 6.4 % LAB HEMETOLOGY METHOD 10/27/2024 8:52 AM [facility] Eosinophils Relative 3.9 % LAB HEMETOLOGY METHOD 10/27/2024 8:52 AM [facility] Basophils Relative 0.3 % LAB HEMETOLOGY METHOD 10/27/2024 8:52 AM [facility] Immature Granulocytes Relative 0.7 % LAB HEMETOLOGY METHOD 10/27/2024 8:52 AM [facility] Neutrophils Absolute 11.20(H) 1.50 - 7.00 K/mcL LAB HEMETOLOGY METHOD 10/27/2024 8:52 AM [facility] Lymphocytes Absolute 0.72(L) 1.00 - 5.00 K/mcL LAB HEMETOLOGY METHOD 10/27/2024 8:52 AM [facility] Monocytes Absolute 0.86 0.20 - 1.00 K/mcL LAB HEMETOLOGY METHOD 10/27/2024 8:52 AM [facility] Eosinophils Absolute 0.52(H) 0.00 - 0.50 K/mcL LAB HEMETOLOGY METHOD 10/27/2024 8:52 AM [facility] Basophils Absolute 0.04 0.00 - 0.20 K/mcL LAB HEMETOLOGY METHOD 10/27/2024 8:52 AM [facility] Immature Granulocytes Absolute 0.10(H) 0.00 - 0.03 K/mcL LAB HEMETOLOGY METHOD 10/27/2024 8:52 AM [facility] Blood Venous blood specimen / Unknown Venipuncture / Unknown 10/27/2024 5:03 AM EDT 10/27/2024 8:06 AM EDT us Vibha Briggs MD LAB BLOOD ORDERABLES Fin al Result [facility] [address] [place] [address], documented in this encounter Visit Diagnoses Diagnosis Endocarditis, valve unspecified documented in this encounter Care Teams Cloth Finishing Range Back Tender Relationship Specialty Start Date End Date Moe Rodriguez MD [address] [place] [phone] PCP - General Internal Medicine 09/13/24 documented as of this encounter
--- OUTSIDE RECORDS SUMMARY | 2024-11-23 09:26 | XMS_ITS | Encounter Summary ---
Author Organization [facility] Address [address] [place] [address] Care Team Providers Care Web Applications Developer Name Role Phone Moe Rodriguez MD Primary Care Provider Encounter Details Date Type Department Care Team (Late st Contact Info) Description 09/13/2024 Lab Requisition [facility] - Main Lab 299 [facility] [place] [place] [address] Moe Rodriguez MD [address] [place] [address] Encounter for other general examination Social History [...] Procedure Name Priority Date/Time Associated Diagnosis Comments SST - GOLD Routine 09/13/2024 8:53 AM EST Encounter for other general examination CBC WITH AUTO DIFFERENTIAL Routine 09/13/2024 8:53 AM EST Encounter for other general examination SEDIMENTATION RATE Routine 09/13/2024 8: 53 AM EST CBC AND DIFFERENTIAL Routine 09/13/2024 8:53 AM EST Encounter for other general examination URIC ACID Routine 09/13/2024 8:53 AM EST Encounter for other general examination MAGNESIUM Routine 09/13/2024 8:53 AM EST Encounter for other general examination COMPREHENSIVE METABOLIC PANEL Routine 09/13/2024 8:53 AM EST Encounter for other general examination documented in this encounter Results * Uric acid (09/13/2024 8:53 AM EST) Uric Acid 5.2 3.1 - 7.8 mg/dL LAB CHEMISTRY METHOD 09/13/2024 8:26 PM EST [facility] Blood Venous blood specimen / Unknown Venipuncture / Unknown 09/13/2024 8:53 AM EST 09/13/2024 10:35 AM EST Moe Rodriguez MD LAB BLOOD ORDERABLES Final Res ult Performing Organization Address [facility]/ZIP Co de Phone Number [facility] [address] [place] [address], [place] [phone] * Sedimentation rate (09/13/2024 8:53 AM EST) Pathologist [facility] Sed Rate 17 0 - 30 mm/hr LAB HEMETOLOGY METHOD 09/13/2024 8:17 PM EST [facility] Blood Venous blood specimen / Unknown Venipuncture / Unknown 09/13/2024 8:53 AM EST 09/13/2024 10:35 AM EST Moe Rodriguez MD LAB BLOOD ORDERABLES Final Res ult [facility] [address] [place] [address], [place] [phone] * SST tube (09/13/2024 8:53 AM EST) Pathologist [facility] Extra Tube Hold for add-ons. 09/13/2024 12:01 PM EST [facility] Comment:Auto resulted. Blood Venous blood specimen / Unknown Venipuncture / Unknown 09/13/2024 8:53 AM EST 09/13/2024 10:35 AM EST us Moe Rodriguez MD LAB BLOOD ORDERABLES Final Res ult [facility] [address] [place] [address], [place] [phone] * (ABNORMAL) CBC auto differential (09/13/2024 8:53 AM EST) WBC 7.6 4.8 - 10.8 K/mcL LAB HEMETOLOGY METHOD 09/13/2024 11:17 AM [facility] RBC 4.70 3.80 - 4.80 M/mcL LAB HEMETOLOGY METHOD 09/13/2024 11:17 AM [facility] Hemoglobin 13.9 11.5 - 16.0 g/dL LAB HEMETOLOGY METHOD 09/13/2024 11:17 AM [facility] Hematocrit 43.1 35.0 - 47.0 % LAB HEMETOLOGY METHOD 09/13/2024 11:17 AM [facility] MCV 91.5 79.0 - 98.0 FL LAB HEMETOLOGY METHOD 09/13/2024 11:17 AM [facility] MCH 29.5 27.0 - 32.0 pcg LAB HEMETOLOGY METHOD 09/13/2024 11:17 AM [facility] MCHC 32.3 32.0 - 37.0 g/dL LAB HEMETOLOGY METHOD 09/13/2024 11:17 AM [facility] RDW 14.7 11.0 - 15.0 % LAB HEMETOLOGY METHOD 09/13/2024 11:17 AM [facility] Platelets 173 130 - 400 K/mcL LAB HEMETOLOGY METHOD 09/13/2024 11:17 AM [facility] MPV 11.7(H) 7.0 - 11.0 FL LAB HEMETOLOGY METHOD 09/13/2024 11:17 AM [facility] NRBC 0.0 <1.0 % LAB HEMETOLOGY METHOD 09/13/2024 11:17 AM [facility] NRBC Absolute 0.00 <0.10 K/mcL LAB HEMETOLOGY METHOD 09/13/2024 11:17 AM [facility] Neutrophils Relative 78.4 % LAB HEMETOLOGY METHOD 09/13/2024 11:17 AM [facility] Lymphocytes Relative 9.8 % LAB HEMETOLOGY METHOD 09/13/2024 11:17 AM [facility] Monocytes Relative 10.6 % LAB HEMETOLOGY METHOD 09/13/2024 11:17 AM [facility] Eosinophils Relative 0.5 % LAB HEMETOLOGY METHOD 09/13/2024 11:17 AM [facility] Basophils Relative 0.4 % LAB HEMETOLOGY METHOD 09/13/2024 11:17 AM [facility] Immature Granulocytes Relative 0.3 % LAB HEMETOLOGY METHOD 09/13/2024 11:17 AM [facility] Neutrophils Absolute 5.92 1.50 - 7.00 K/mcL LAB HEMETOLOGY METHOD 09/13/2024 11:17 AM [facility] Lymphocytes Absolute 0.74(L) 1.00 - 5.00 K/mcL LAB HEMETOLOGY METHOD 09/13/2024 11:17 AM [facility] Monocytes Absolute 0.80 0.20 - 1.00 K/mcL LAB HEMETOLOGY METHOD 09/13/2024 11:17 AM [facility] Eosinophils Absolute 0.04 0.00 - 0.50 K/mcL LAB HEMETOLOGY METHOD 09/13/2024 11:17 AM [facility] Basophils Absolute 0.03 0.00 - 0.20 K/mcL LAB HEMETOLOGY METHOD 09/13/2024 11:17 AM EST [facility] Immature Granulocytes Absolute 0.02 0.00 - 0.03 K/[facility] LAB HEMETOLOGY METHOD 09/13/2024 11:17 AM EST [facility] Blood Venous blood specimen / Unknown Venipuncture / Unknown 09/13/2024 8:53 AM EST 09/13/2024 10:35 AM EST Moe Rodriguez MD LAB BLOOD ORDERABLES Final Res ult Performing Organization Address City/[facility]/ZIP Co de Phone Number [facility] [address] [place] [address], [place] [phone] * Magnesium (09/13/2024 8:53 AM EST) Magnesium 2.1 1.9 - 2.6 mg/dL LAB CHEMISTRY METHOD 09/13/2024 11:45 AM EST [facility] Blood Venous blood specimen / Unknown Venipuncture / Unknown 09/13/2024 8:53 AM EST 09/13/2024 10:35 AM EST Moe Rodriguez MD LAB BLOOD ORDERABLES Final Res ult Performing Organization Address City/[facility]/ZIP Co de Phone Number [facility] [address] [place] [address], [place] [phone] * (ABNORMAL) Comprehensive metabolic panel (09/13/2024 8:53 AM EST) Sodium 138 133 - 145 mmol/L LAB CHEMISTRY METHOD 09/13/2024 11:45 AM [facility] Potassium 3.5 3.5 - 5.5 mmol/L LAB CHEMISTRY METHOD 09/13/2024 11:45 AM EST [facility] Chloride 104 96 - 110 mmol/L LAB CHEMISTRY METHOD 09/13/2024 11:45 AM [facility] CO2 27 21 - 32 mmol/L LAB CHEMISTRY METHOD 09/13/2024 11:45 AM [facility] Anion Gap 7 3 - 11 LAB CHEMISTRY METHOD 09/13/2024 11:45 AM [facility] Glucose 101(H) 70 - 100 mg/dL LAB CHEMISTRY METHOD 09/13/2024 11:45 AM [facility] BUN 25 5 - 25 mg/dL LAB CHEMISTRY METHOD 09/13/2024 11:45 AM [facility] Creatinine 0.79 0.50 - 1.10 mg/dL LAB CHEMISTRY METHOD 09/13/2024 11:45 AM [facility] eGFR 75 >=60 mL/min/1. 73m2 LAB CHEMISTRY METHOD 09/13/2024 11:45 AM [facility] Comment:Calculation based on the??Chronic Kidney Disease Epidemiology Collaboration (CKD-EPI) equation refit??without adjustment for race. BUN/Creatinine Ratio 31.6 LAB CHEMISTRY METHOD 09/13/2024 11:45 AM [facility] Calcium 9.0 8.5 - 10.5 mg/dL LAB CHEMISTRY METHOD 09/13/2024 11:45 AM [facility] AST (SGOT) 28 10 - 42 unit/L LAB CHEMISTRY METHOD 09/13/2024 11:45 AM [facility] ALT (SGPT) 45 10 - 60 unit/L LAB CHEMISTRY METHOD 09/13/2024 11:45 AM [facility] Alkaline Phosphatase 66 42 - 121 unit/L LAB CHEMISTRY METHOD 09/13/2024 11:45 AM [facility] Total Protein 7.1 6.0 - 8.0 g/dL LAB CHEMISTRY METHOD 09/13/2024 11:45 AM [facility] Albumin 3.7 3.2 - 5.0 g/dL LAB CHEMISTRY METHOD 09/13/2024 11:45 AM EST [facility] Total Bilirubin 2.2(H) 0.0 - 1.4 mg/dL LAB CHEMISTRY METHOD 09/13/2024 11:45 AM EST [facility] Blood Venous blood specimen / Unknown Venipuncture / Unknown 09/13/2024 8:53 AM EST 09/13/2024 10:35 AM EST us Moe Rodriguez MD LAB BLOOD ORDERABLES Final Res ult [facility] [address] [place] [address], documented in this encounter Visit Diagnoses Diagnosis Encounter for other general examination documented in this encounter Care Teams Web Applications Developer Relationship Specialty Start Date End Date Moe Rodriguez MD [address] [place] [phone] PCP - General Internal Medicine 09/13/24 documented as of this encounter
--- OUTSIDE RECORDS SUMMARY | 2024-11-23 09:26 | XMS_ITS | Encounter Summary ---
Author Organization [facility] Address [address] [place] [address] Care Team Providers Care Nursery Technician Name Role Phone Moe Rodriguez MD Primary Care Provider [phone] Encounter Details Date Type Department Care Team (Late st Contact Info) Description 10/29/2024 Lab Requisition [facility] - Main Lab 299 [facility] [place] [place] [address] Vibha Briggs MD [address] [address] Anemia, unspecified; Chronic kidney disease, unspecified; Heart failure, unspecified (CMS/HCC V24, CMS/HCC V28); Endocarditis, valve unspecified Social History Tobacco Use [...] as of this encounter Visit Diagnoses Diagnosis Anemia, unspecified Chronic kidney disease, unspecified Heart failure, unspecified (CMS/HCC V24, CMS/HCC V28) Heart failure, unspecified Endocarditis, valve unspecified documented in this encounter Care Teams Nursery Technician Relationship Specialty Start Date End Date Moe Rodriguez MD [address] [place] [id number] PCP - General Internal Medicine 09/13/24 documented as of this encounter
--- OUTSIDE RECORDS SUMMARY | 2024-11-23 09:26 | XMS_ITS | Encounter Summary ---
Author Organization [facility] Address [address] [place] [address] Care Team Providers Care Distribution Operations Supervisor Name Role Phone Moe Rodriguez MD Primary Care Provider [phone] Encounter Details Date Type Department Care Team (Late st Contact Info) Description 10/31/2024 Lab Requisition [facility] - Main Lab 299 [facility] [place] [address] Jose Burgos MD [address] [place] [address] Endocarditis, valve unspecified; Chronic kidney disease, unspecified; Heart failure, unspecified (CMS/HCC V24, CMS/HCC V28); Anemia, unspecified Social History Tobacco Use Types Packs/Day [...] Procedure Name Priority Date/Time Associated Diagnosis Comments VITAMIN B12 AND FOLATE Routine 7:35 AM [...] unspecified Heart failure, unspecified (CMS/HCC) Anemia, unspecified documented in this encounter Results * (ABNORMAL) Vitamin B12 and folate (10/31/2024 7:35 AM EDT) Pathologist [facility] Vitamin B-12 1,627(H) 250 - 900 pcg/mL LAB CHEMISTRY METHOD 10/31/2024 8:20 PM EDT [facility] Folate 2.9 2.8 - 17.0 ng/ml LAB CHEMISTRY METHOD 10/31/2024 8:20 PM EDT [facility] Blood Venous blood specimen / Unknown Venipuncture / Unknown 10/31/2024 7:35 AM EDT 10/31/2024 10:09 AM EDT us Jose Burgos MD LAB BLOOD ORDERABLES Final Resu lt [facility] [address] [place] [address], * (ABNORMAL) Iron and TIBC (10/31/2024 7:35 AM EDT) Iron 17(L) 40 - 150 mcg/dL LAB CHEMISTRY METHOD 10/31/2024 8:00 PM EDT [facility] TIBC 175(L) 250 - 450 mcg/dL LAB CHEMISTRY METHOD 10/31/2024 8:00 PM EDT [facility] Iron Saturation 10(L) 15 - 50 % LAB CHEMISTRY METHOD 10/31/2024 8:00 PM EDT [facility] Blood Venous blood specimen / Unknown Venipuncture / Unknown 10/31/2024 7:35 AM EDT 10/31/2024 10:09 AM EDT us Jose Burgos MD LAB BLOOD ORDERABLES Final Resu lt Performing Organization Address City/[facility]/ZIP Co de Phone Number [facility] [address] [place] [address], [place] [phone] * (ABNORMAL) Ferritin (10/31/2024 7:35 AM EDT) Pathologist [facility] Ferritin 352(H) 8 - 252 ng/mL LAB CHEMISTRY METHOD 10/31/2024 8:20 PM EDT [facility] Blood Venous blood specimen / Unknown Venipuncture / Unknown 10/31/2024 7:35 AM EDT 10/31/2024 10:09 AM EDT us Jose Burgos MD LAB BLOOD ORDERABLES Final Resu lt Performing Organization Address [facility]/ZIP Co de Phone Number [facility] [address] [place] [address], [place] [phone] * (ABNORMAL) Comprehensive metabolic panel (10/31/2024 7:35 AM EDT) [facility] Sodium 137 133 - 145 mmol/L LAB CHEMISTRY METHOD 10/31/2024 11:47 AM EDT [facility] Potassium 3.8 3.5 - 5.5 mmol/L LAB CHEMISTRY METHOD 10/31/2024 11:47 AM EDT [facility] Chloride 102 96 - 110 mmol/L LAB CHEMISTRY METHOD 10/31/2024 11:47 AM EDT [facility] CO2 29 21 - 32 mmol/L LAB CHEMISTRY METHOD 10/31/2024 11:47 AM EDT [facility] Anion Gap 6 3 - 11 LAB CHEMISTRY METHOD 10/31/2024 11:47 AM [facility] Glucose 88 70 - 100 mg/dL LAB CHEMISTRY METHOD 10/31/2024 11:47 AM [facility] BUN 13 5 - 25 mg/dL LAB CHEMISTRY METHOD 10/31/2024 11:47 AM [facility] Creatinine 0.66 0.50 - 1.10 mg/dL LAB CHEMISTRY METHOD 10/31/2024 11:47 AM [facility] eGFR 88 >=60 mL/min/1. 73m2 LAB CHEMISTRY METHOD 10/31/2024 11:47 AM [facility] Comment:Calculation based on the??Chronic Kidney Disease Epidemiology Collaboration (CKD-EPI) equation refit??without adjustment for race. BUN/Creatinine Ratio 19.7 LAB CHEMISTRY METHOD 10/31/2024 11:47 AM [facility] Calcium 8.0(L) 8.5 - 10.5 mg/dL LAB CHEMISTRY METHOD 10/31/2024 11:47 AM [facility] AST (SGOT) 24 10 - 42 unit/L LAB CHEMISTRY METHOD 10/31/2024 11:47 AM [facility] ALT (SGPT) 17 10 - 60 unit/L LAB CHEMISTRY METHOD 10/31/2024 11:47 AM [facility] Alkaline Phosphatase 60 42 - 121 unit/L LAB CHEMISTRY METHOD 10/31/2024 11:47 AM [facility] Total Protein 6.0 6.0 - 8.0 g/dL LAB CHEMISTRY METHOD 10/31/2024 11:47 AM [facility] Albumin 2.0(L) 3.2 - 5.0 g/dL LAB CHEMISTRY METHOD 10/31/2024 11:47 AM [facility] Total Bilirubin 0.6 0.0 - 1.4 mg/dL LAB CHEMISTRY METHOD 10/31/2024 11:47 AM EDT [facility] Blood Venous blood specimen / Unknown Venipuncture / Unknown 10/31/2024 7:35 AM EDT 10/31/2024 10:09 AM EDT us Jose Burgos MD LAB BLOOD ORDERABLES Final Resu lt [facility] [address] [place] [address], * (ABNORMAL) Complete blood count (10/31/2024 7:35 AM EDT) WBC 11.0(H) 4.8 - 10.8 K/mcL LAB HEMETOLOGY METHOD 10/31/2024 11:16 AM EDT [facility] RBC 2.40(L) 3.80 - 4.80 M/mcL LAB HEMETOLOGY METHOD 10/31/2024 11:16 AM EDT [facility] Hemoglobin 7.1(L) 11.5 - 16.0 g/dL LAB HEMETOLOGY METHOD 10/31/2024 11:16 AM T [facility] Hematocrit 23.0(L) 35.0 - 47.0 % LAB HEMETOLOGY METHOD 10/31/2024 11:16 AM [facility] MCV 96.6 79.0 - 98.0 FL LAB HEMETOLOGY METHOD 10/31/2024 11:16 AM EDT [facility] MCH 29.8 27.0 - 32.0 pcg LAB HEMETOLOGY METHOD 10/31/2024 11:16 AM EDT [facility] MCHC 30.9(L) 32.0 - 37.0 g/dL LAB HEMETOLOGY METHOD 10/31/2024 11:16 AM [facility] RDW 15.9(H) 11.0 - 15.0 % LAB HEMETOLOGY METHOD 10/31/2024 11:16 AM EDT [facility] Platelets 158 130 - 400 K/mcL LAB HEMETOLOGY METHOD 10/31/2024 11:16 AM EDT [facility] MPV 11.2(H) 7.0 - 11.0 FL LAB HEMETOLOGY METHOD 10/31/2024 11:16 AM EDT [facility] NRBC 0.0 <1.0 % LAB HEMETOLOGY METHOD 10/31/2024 11:16 AM EDT [facility] NRBC Absolute 0.00 <0.10 K/mcL LAB HEMETOLOGY METHOD 10/31/2024 11:16 AM EDT [facility] Blood Venous blood specimen / Unknown Venipuncture / Unknown 10/31/2024 7:35 AM EDT 10/31/2024 10:09 AM EDT us Jose Burgos MD LAB BLOOD ORDERABLES Final Resu lt [facility] [address] [place] [address], documented in this encounter Visit Diagnoses Diagnosis Endocarditis, valve unspecified Chronic kidney disease, unspecified Heart failure, unspecified (CMS/HCC V24, CMS/HCC V28) Heart failure, unspecified Anemia, unspecified documented in this encounter Care Teams Distribution Operations Supervisor Relationship Specialty Start Date End Date Moe Rodriguez MD [address] [place] [id number] PCP - General Internal Medicine 09/13/24 documented as of this encounter
--- OUTSIDE RECORDS SUMMARY | 2024-11-23 09:26 | XMS_ITS | Encounter Summary ---
Author Organization [facility] Address [address] [place] [address] Care Team Providers Care Biomedical Engineering Supervisor Name Role Phone Moe Rodriguez MD Primary Care Provider [phone] Encounter Details Date Type Department Care Team (Late st Contact Info) Description 11/18/[address] [facility] - Main Lab 299 [facility] [place] [address] Jose Burgos MD [address] [place] [address] Endocarditis, valve unspecified Social History Tobacco Use [...] Associated Diagnosis Comments COMPLETE BLOOD COUNT Routine 11/20/2024 5:10 AM EDT Endocarditis, valve unspecified COMPREHENSIVE METABOLIC PANEL Routine 11/20/2024 5:10 AM EDT Endocarditis, valve unspecified documented in this encounter Results * (ABNORMAL) Comprehensive metabolic panel (11/20/2024 5:10 AM EDT) Sodium 136 133 - 145 mmol/L LAB CHEMISTRY METHOD 11/20/2024 11:25 AM EDT [facility] Potassium 3.9 3.5 - 5.5 mmol/L LAB CHEMISTRY METHOD 11/20/2024 11:25 AM [facility] Chloride 94(L) 96 - 110 mmol/L LAB CHEMISTRY METHOD 11/20/2024 11:25 AM [facility] CO2 35(H) 21 - 32 mmol/L LAB CHEMISTRY METHOD 11/20/2024 11:25 AM [facility] Anion Gap 7 3 - 11 LAB CHEMISTRY METHOD 11/20/2024 11:25 AM [facility] Glucose 76 70 - 100 mg/dL LAB CHEMISTRY METHOD 11/20/2024 11:25 AM [facility] BUN 14 5 - 25 mg/dL LAB CHEMISTRY METHOD 11/20/2024 11:25 AM [facility] Creatinine 0.87 0.50 - 1.10 mg/dL LAB CHEMISTRY METHOD 11/20/2024 11:25 AM [facility] eGFR 67 >=60 mL/min/1. 73m2 LAB CHEMISTRY METHOD 11/20/2024 11:25 AM [facility] Comment:Calculation based on the??Chronic Kidney Disease Epidemiology Collaboration (CKD-EPI) equation refit??without adjustment for race. BUN/Creatinine Ratio 16.1 LAB CHEMISTRY METHOD 11/20/2024 11:25 AM [facility] Calcium 8.7 8.5 - 10.5 mg/dL LAB CHEMISTRY METHOD 11/20/2024 11:25 AM [facility] AST (SGOT) 21 10 - 42 unit/L LAB CHEMISTRY METHOD 11/20/2024 11:25 AM [facility] ALT (SGPT) 8(L) 10 - 60 unit/L LAB CHEMISTRY METHOD 11/20/2024 11:25 AM [facility] Alkaline Phosphatase 62 42 - 121 unit/L LAB CHEMISTRY METHOD 11/20/2024 11:25 AM [facility] Total Protein 6.7 6.0 - 8.0 g/dL LAB CHEMISTRY METHOD 11/20/2024 11:25 AM T [facility] Albumin 2.4(L) 3.2 - 5.0 g/dL LAB CHEMISTRY METHOD 11/20/2024 11:25 AM [facility] Total Bilirubin 0.7 0.0 - 1.4 mg/dL LAB CHEMISTRY METHOD 11/20/2024 11:25 AM [facility] Blood Venous blood specimen / Unknown Venipuncture / Unknown 11/20/2024 5:10 AM EDT 11/20/2024 10:17 AM EDT us Jose Burgos MD LAB BLOOD ORDERABLES Final Resu lt [facility] [address] [place] [address], [place] [phone] * (ABNORMAL) Complete blood count (11/20/2024 5:10 AM EDT) WBC 10.3 4.8 - 10.8 K/mcL LAB HEMETOLOGY METHOD 11/20/2024 11:00 AM [facility] RBC 2.90(L) 3.80 - 4.80 M/mcL LAB HEMETOLOGY METHOD 11/20/2024 11:00 AM [facility] Hemoglobin 8.2(L) 11.5 - 16.0 g/dL LAB HEMETOLOGY METHOD 11/20/2024 11:00 AM [facility] Hematocrit 27.5(L) 35.0 - 47.0 % LAB HEMETOLOGY METHOD 11/20/2024 11:00 AM [facility] MCV 95.8 79.0 - 98.0 FL LAB HEMETOLOGY METHOD 11/20/2024 11:00 AM [facility] MCH 28.6 27.0 - 32.0 pcg LAB HEMETOLOGY METHOD 11/20/2024 11:00 AM EDT [facility] MCHC 29.8(L) 32.0 - 37.0 g/dL LAB HEMETOLOGY METHOD 11/20/2024 11:00 AM EDT [facility] RDW 17.1(H) 11.0 - 15.0 % LAB HEMETOLOGY METHOD 11/20/2024 11:00 AM EDT [facility] Platelets 269 130 - 400 K/mcL LAB HEMETOLOGY METHOD 11/20/2024 11:00 AM EDT [facility] MPV 11.3(H) 7.0 - 11.0 FL LAB HEMETOLOGY METHOD 11/20/2024 11:00 AM EDT [facility] NRBC 0.0 <1.0 % LAB HEMETOLOGY METHOD 11/20/2024 11:00 AM EDT [facility] NRBC Absolute 0.00 <0.10 K/mcL LAB HEMETOLOGY METHOD 11/20/2024 11:00 AM T [facility] Blood Venous blood specimen / Unknown Venipuncture / Unknown 11/20/2024 5:10 AM EDT 11/20/2024 10:17 AM EDT us Jose Burgos MD LAB BLOOD ORDERABLES Final Resu lt [facility] [address] [place] [address], [place] [phone] documented in this encounter Visit Diagnoses Diagnosis Endocarditis, valve unspecified documented in this encounter Care Teams Biomedical Engineering Supervisor Relationship Specialty Start Date End Date Moe Rodriguez MD [address] [place] [id number] PCP - General Internal Medicine 09/13/24 documented as of this encounter
--- OUTSIDE RECORDS SUMMARY | 2024-11-23 09:26 | XMS_ITS | Encounter Summary ---
Author Organization [facility] Address [address] [place] [address] Care Team Providers Care Entry Examiner Name Role Phone Moe Rodriguez MD Primary Care Provider [phone] Encounter Details Date Type Department Care Team (Late st Contact Info) Description 09/17/2024 Lab Requisition [facility] - Main Lab 299 [facility] [place] [address] Moe Rodriguez MD [address] [place] [phone] Encounter for other general examination Social History [...] Procedure Name Priority Date/Time Associated Diagnosis Comments PROTHROMBIN TIME WITH INR Routine 09/17/2024 5:13 AM EST Encounter for other general examination documented in this encounter Results * (ABNORMAL) Prothrombin time with INR (09/17/2024 5:13 AM EST) Protime 23.2(H) 10.6 - 13.9 sec LAB COAGULATION METHOD 09/17/2024 7:05 AM EST [facility] INR 1.9 LAB COAGULATION METHOD 09/17/2024 7:05 AM [facility] Blood Venous blood specimen / Unknown Venipuncture / Unknown 09/17/2024 5:13 AM EST 09/17/2024 6:34 AM EST us Moe Rodriguez MD LAB BLOOD ORDERABLES Final Res ult [facility] [address] [place] [address], documented in this encounter Visit Diagnoses Diagnosis Encounter for other general examination documented in this encounter Care Teams Entry Examiner Relationship Specialty Start Date End Date Moe Rodriguez MD [address] [place] [address] PCP - General Internal Medicine 09/13/24 documented as of this encounter
--- OUTSIDE RECORDS SUMMARY | 2024-11-23 09:26 | XMS_ITS | Encounter Summary ---
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 Social History Tobacco Use Types Packs/Day Years [...] Procedure Name Priority Date/Time Associated Diagnosis Comments IRON AND TIBC Routine 11/01/2024 6:55 AM EDT Endocarditis, valve unspecified Encounter for other general examination Other senior care (current) drug therapy FOLATE Routine 11/01/2024 6:55 AM EDT Endocarditis, valve unspecified Encounter for other general examination Other senior care (current) drug therapy FERRITIN Routine 11/01/2024 6:55 AM EDT Endocarditis, valve unspecified Encounter for other general examination 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 VITAMIN B12 Routine 11/01/2024 6:55 AM EDT Endocarditis, valve unspecified Encounter for other general examination Other senior care (current) drug therapy documented in this encounter Results * Folate (11/01/2024 6:55 AM EDT) [facility] Folate 3.2 2.8 - 17.0 ng/ml LAB CHEMISTRY METHOD 11/01/2024 11:01 AM EDT [facility] Blood Venous blood specimen / Unknown Venipuncture / Unknown 11/01/2024 6:55 AM EDT 11/01/2024 9:45 AM EDT us Jose Burgos MD LAB BLOOD ORDERABLES Final Resu lt Performing Organization Address [facility]/ZIP Co de Phone Number [facility] [address] [place] [address], [place] [phone] * (ABNORMAL) Vitamin B12 (11/01/2024 6:55 AM EDT) [facility] Vitamin B-12 1,691(H) 250 - 900 pcg/mL LAB CHEMISTRY METHOD 11/01/2024 11:01 AM EDT [facility] Blood Venous blood specimen / Unknown Venipuncture / Unknown 11/01/2024 6:55 AM EDT 11/01/2024 9:45 AM EDT us Jose Burgos MD LAB BLOOD ORDERABLES Final Resu lt [facility] [address] [place] [address], [place] [phone] * (ABNORMAL) Iron and TIBC (11/01/2024 6:55 AM EDT) [facility] Iron 10(L) 40 - 150 mcg/dL LAB CHEMISTRY METHOD 11/01/2024 10:39 AM EDT [facility] TIBC 176(L) 250 - 450 mcg/dL LAB CHEMISTRY METHOD 11/01/2024 10:39 AM EDT [facility] Iron Saturation 6(L) 15 - 50 % LAB CHEMISTRY METHOD 11/01/2024 10:39 AM EDT [facility] Blood Venous blood specimen / Unknown Venipuncture / Unknown 11/01/2024 6:55 AM EDT 11/01/2024 9:45 AM EDT us Jose Burgos MD LAB BLOOD ORDERABLES Final Resu lt Performing Organization Address [facility]/ZIP Co de Phone Number [facility] [address] [place] [address], [place] [phone] * (ABNORMAL) Ferritin (11/01/2024 6:55 AM EDT) Ferritin 889(H) 8 - 252 ng/mL LAB CHEMISTRY METHOD 11/01/2024 11:01 AM EDT [facility] Blood Venous blood specimen / Unknown Venipuncture / Unknown 11/01/2024 6:55 AM EDT 11/01/2024 9:45 AM EDT us Jose Burgos MD LAB BLOOD ORDERABLES Final Resu lt Performing Organization Address [facility]/ZIP Co de Phone Number [facility] [address] [place] [address], [place] [phone] documented in this encounter Visit Diagnoses Diagnosis Endocarditis, valve unspecified Encounter for other general examination Other senior care (current) drug therapy documented in this encounter Care Teams Fashion Stylist Relationship Specialty Start Date End Date Moe Rodriguez MD [address] [place] [id number] PCP - General Internal Medicine 09/13/24 documented as of this encounter
--- OUTSIDE RECORDS SUMMARY | 2024-11-23 09:26 | XMS_ITS | Encounter Summary ---
Author Organization [facility] Address [address] [place] [address] Care Team Providers Care Front Maker Lockstitch Name Role Phone Moe Rodriguez MD Primary Care Provider [phone] Encounter Details Date Type Department Care Team (Late st Contact Info) Description 11/22/2024 Lab Requisition [facility] - Main Lab 299 [facility] [place] [address] Jose Burgos MD [address] [place] [address] Endocarditis, valve unspecified Social History Tobacco Use Types Packs/Day Years Used Date Smoking Tobacco: Never Assessed Comments Unknown Sex and Gender Information Value Date Recorded Sex Assigned at Not on file Legal Sex Female 10:19 PM EST Gender Identity Not on file Sexual Orientation Not on file documented as of this encounter Plan of Treatment Scheduled Orders Name Type Priority Associated Diagnoses Orde r Schedule Complete blood count Lab Routine Endocarditis, valve unspecified Ordered: 11/22/2024 Basic metabolic panel Lab Routine Endocarditis, valve unspecified Ordered: 11/22/2024 documented as of this encounter Visit Diagnoses Diagnosis Endocarditis, valve unspecified documented in this encounter Care Teams Front Maker Lockstitch Relationship Specialty Start Date End Date Moe Rodriguez MD [address] [place] [address] PCP - General Internal Medicine 09/13/24 documented as of this encounter
--- OUTSIDE RECORDS SUMMARY | 2024-11-23 09:26 | XMS_ITS | Encounter Summary ---
Author Organization [facility] Address [address] [place] [address] Care Team Providers Care Online Services Manager Name Role Phone Moe Rodriguez MD Primary Care Provider [phone] Encounter Details Date Type Department Care Team (Late st Contact Info) Description 09/22/2024 Lab Requisition [facility] - Main Lab 299 [facility] [place] [address] Moe Rodriguez MD [address] [place] [address] Encounter for other general examination Social History [...] Associated Diagnosis Comments COMPLETE BLOOD COUNT Routine 09/22/2024 7:05 AM EST Encounter for other general examination BASIC METABOLIC PANEL Routine 09/22/2024 7:05 AM EST Encounter for other general examination documented in this encounter Results * (ABNORMAL) Complete blood count (09/22/2024 7:05 AM EST) WBC 6.6 4.8 - 10.8 K/[facility] LAB HEMETOLOGY METHOD 09/22/2024 10:52 AM EST [facility] RBC 3.60(L) 3.80 - 4.80 M/[facility] LAB HEMETOLOGY METHOD 09/22/2024 10:[address] [facility] Hemoglobin 10.6(L) 11.5 - 16.0 g/dL LAB HEMETOLOGY METHOD 09/22/2024 10:[address] [facility] Hematocrit 31.9(L) 35.0 - 47.0 % LAB HEMETOLOGY METHOD 09/22/2024 10:[address] [facility] MCV 89.9 79.0 - 98.0 FL LAB HEMETOLOGY METHOD 09/22/2024 10:[address] [facility] MCH 29.9 27.0 - 32.0 pcg LAB HEMETOLOGY METHOD 09/22/2024 10:[address] [facility] MCHC 33.2 32.0 - 37.0 g/dL LAB HEMETOLOGY METHOD 09/22/2024 10:[address] [facility] RDW 15.1(H) 11.0 - 15.0 % LAB HEMETOLOGY METHOD 09/22/2024 10:[address] [facility] Platelets 70(L) 130 - 400 K/mcL LAB HEMETOLOGY METHOD 09/22/2024 10:[address] [facility] Comment:reviewed by slide MPV 12.0(H) 7.0 - 11.0 FL LAB HEMETOLOGY METHOD 09/22/2024 10:[address] [facility] NRBC 0.0 <1.0 % LAB HEMETOLOGY METHOD 09/22/2024 10:[address] [facility] NRBC Absolute 0.00 <0.10 K/mcL LAB HEMETOLOGY METHOD 09/22/2024 10:[address] [facility] Blood Venous blood specimen / Unknown Venipuncture / Unknown 09/22/2024 7:05 AM EST 09/22/2024 10:08 AM EST Moe Rodriguez MD LAB BLOOD ORDERABLES Final Res ult [facility] [address] [place] [address], * (ABNORMAL) Basic metabolic panel (09/22/2024 7:05 AM EST) Sodium 138 133 - 145 mmol/L LAB CHEMISTRY METHOD 09/22/2024 10:[address] [facility] Potassium 3.8 3.5 - 5.5 mmol/L LAB CHEMISTRY METHOD 09/22/2024 10:[address] [facility] Chloride 106 96 - 110 mmol/L LAB CHEMISTRY METHOD 09/22/2024 10:[address] [facility] CO2 26 21 - 32 mmol/L LAB CHEMISTRY METHOD 09/22/2024 10:[address] [facility] Anion Gap 6 3 - 11 LAB CHEMISTRY METHOD 09/22/2024 10:[address] [facility] Glucose 98 70 - 100 mg/dL LAB CHEMISTRY METHOD 09/22/2024 10:[address] [facility] BUN 32(H) 5 - 25 mg/dL LAB CHEMISTRY METHOD 09/22/2024 10:[address] [facility] Creatinine 0.87 0.50 - 1.10 mg/dL LAB CHEMISTRY METHOD 09/22/2024 10:[address] [facility] eGFR 67 >=60 mL/min/1. 73m2 LAB CHEMISTRY METHOD 09/22/2024 10:[address] [facility] Comment:Calculation based on the??Chronic Kidney Disease Epidemiology Collaboration (CKD-EPI) equation refit??without adjustment for race. BUN/Creatinine Ratio 36.8 LAB CHEMISTRY METHOD 09/22/2024 10:[address] [facility] Calcium 8.5 8.5 - 10.5 mg/dL LAB CHEMISTRY METHOD 09/22/2024 10:[address] [facility] Blood Venous blood specimen / Unknown Venipuncture / Unknown 09/22/2024 7:05 AM EST 09/22/2024 10:08 AM EST Moe Rodriguez MD LAB BLOOD ORDERABLES Final Res ult [facility] [address] [place] [address], documented in this encounter Visit Diagnoses Diagnosis Encounter for other general examination documented in this encounter Care Teams Online Services Manager Relationship Specialty Start Date End Date Moe Rodriguez MD [address] [place] [phone] PCP - General Internal Medicine 09/13/24 documented as of this encounter
--- OUTSIDE RECORDS SUMMARY | 2024-11-23 09:26 | XMS_ITS | Encounter Summary ---
Author Organization [facility] Address [address] [place] [address] Care Team Providers Care Senior Visual Designer Name Role Phone Moe Rodriguez MD Primary Care Provider [phone] Encounter Details Date Type Department Care Team (Late st Contact Info) Description 11/15/2024 Lab Requisition [facility] - Main Lab [address] [facility] [place] [address] Jose Burgos MD [address] [place] [phone] Endocarditis, valve unspecified Social History Tobacco Use [...] unspecified documented in this encounter Care Teams Senior Visual Designer Relationship Specialty Start Date End Date Moe Rodriguez MD [address] [place] [id number] PCP - General Internal Medicine 09/13/24 documented as of this encounter
--- OUTSIDE RECORDS SUMMARY | 2024-11-23 09:26 | XMS_ITS | Encounter Summary ---
Author Organization [facility] Address [address] [place] [address] Care Team Providers Care B2B Account Executive Name Role Phone Moe Rodriguez MD Primary Care Provider [phone] Encounter Details Date Type Department Care Team (Late st Contact Info) Description 11/04/2024 Lab Requisition [facility] - Main Lab [address] [facility] [place] [address] Jose Burgos MD [address] [place] [phone] Endocarditis, valve unspecified Social History Tobacco Use [...] unspecified documented in this encounter Care Teams B2B Account Executive Relationship Specialty Start Date End Date Moe Rodriguez MD [address] [place] [id number] PCP - General Internal Medicine 09/13/24 documented as of this encounter
[2024-11-23 09:29] LABS: Procalcitonin 0.16 ng/mL
[2024-11-23] MEDS: Rocuronium Bromide 50 MG/5 ML VIAL IVPUSH (09:29)
--- NOTE | 2024-11-23 09:29 | PHA.MEDREC ---
Pharmacy Consult ? Medication Reconciliation Pharmacy has completed the medication reconciliation. List from Chiquita Hawley. No warfarin was included on this list.
[2024-11-23] MEDS: 0.9 % Sodium Chloride 1,000 ML 999 ML IV (09:31)
[2024-11-23] MEDS: Etomidate 20 MG/10 ML VIAL 10 MG IVPUSH (09:31)
[2024-11-23] MEDS: Dextrose 50 % 25 GM/50 ML SYRINGE IVPUSH (09:32)
--- NOTE | 2024-11-23 09:32 | PC.RT ---
Pt was ext per order 09:25. Family at bedside, present.
[2024-11-23 09:47] VITALS: BP 65/39; PULSE 71
[2024-11-23] MEDS: EPINEPHrine 5 MG in Dextrose 5 % 250 ML 54.77 MG IVCONT (09:47)
--- NOTE | 2024-11-23 09:49 | PC.NURSE ---
0802 -Arrival to 4 via [facility] per EMS: pt from [facility], pmHx endocarditis, staff got pt up to the bathroom when she became lethargic, unresponsive, tachycardic at 190. when EMS arrived pt unresponsive, HR bradycardic in the 50s, unable to obtain BP. POC 106. IV established 20 L F.A 18G LAC. pt lost pulses at approx 0759, belén in use, EMS using BVM. 0803 Epi give via IV. POC 134 0805 pulse check - faint femoral pulses. 0807: HR 83. 24RR, 59/34 RT providing ventilation via BVM, plan to intubate. : 10mg Etomidate given IV, 50mg Rocuronium given IV 0809: pt intubated, 7.5 ETT, 23 at the lip, + ETCo2 (48), equl breath sounds. 0810: no pulse - CPR started : Epi given 0812: Pulse check + carotid pulse 20G established in the R hand 0813: HR 128, RR21, 32 ET BP pending 0818: Levophed started at 0.05mcg/kg/min Family contacted, informed of pts condition, pt would no longer like chest compressions done if pt loses her pulse 0819: 16F temp sensing mcallister placed. 0820: T 93.4 core, 78 HR, 18 RR, 62/31, ET 27 Vent settings: rate 18, TV 310. 100%, peep 5 0821: increase norepi to 0.07 mcg/kg/min 0823: 58/26, HR 65, 18RR, ET 26 increase norepi to 0.09 mcg/kg/min 0825: HR 70, 30% mech vent, 18RR, 28ET, 48/16 Temp 95.4 0828: 22 G IV established HR 67, 32% Mech vent, 26 ET, 18 RR< 47/23, 96.3 T faint pulses palpated, increase norepi gtt 0.11 mcg/kg/min 0832: max norepi gtt per MD order to 1 mcg/kg/min HR 62, 30% mech vent, 18 RR, 27 ET, 43/21, 97.2 T 0835: POC 87 - 25 G Detrose amp given 0840: HR 71, 18RR, ET 30, T 97.9, 65/39 CXR at bedside - pull ETT back, now 20 at the lip EPI gtt started 0.2 mcg/kg/min + carotid pulses 0842: increase PEEP to 10 0843: HR 72, 49% mech vent, ET 29, 18RR, 60/12 RT suctioning pt, no gag reflex, no cough Daughter arrived at bedside 0855: HR 92, 25% Mech vent, 18 RR, 31 ET, 67/30, 98.6 T now at bedside 0902: family decision to make pt BUYING INTERN - plan to start morphine gtt Epi gtt stopped 914: started morphine gtt at 4mg/hr per DO Carroll 0920: stop norepi gtt 924: pt extubated by Noe RT 0934: TOAlbert called
--- NOTE | 2024-11-23 10:01 | MHC.EDTECH ---
@ 10:00am CALL PLACED TO DR MARTIN SETH [phone] OFFICE TO MAKE HER PCP AWARE OF ... TIME OF 09:34 PER [employer] TAKES MESSAGE FOR OFFICE
[2024-11-23 10:12] VITALS: BP 67/30; PULSE 92
--- NOTE | 2024-11-23 10:17 | PC.NURSE ---
EV contacted at 10:14 spoke with Shakira CARRENO will decline case #[id number]
[2024-11-23 10:20] VITALS: PULSE 54
--- NOTE | 2024-11-23 11:02 | PC.NURSE ---
wasted morphine gtt with Linda ROMAN
--- NOTE | 2024-11-23 12:29 | PC.NURSE ---
home: [facility] [address] [place] [id number]
--- NOTE | 2024-11-23 12:30 | PC.NURSE ---
Family at bedside requesting [facility] in [place], pt's ring taken home by family.
[2024-11-24 08:10] LABS: Glucose, Whole Blood 134 mg/dL (60-115)
== END 2024-11-23 11:00 | disposition expired ==
PROVIDERS: Emergency Provider Emergency Medicine; PCP Internal Medicine
DX: I46.9 Cardiac arrest, cause unspecified (principal); R00.1 Bradycardia, unspecified; R09.02 Hypoxemia; I48.91 Unspecified atrial fibrillation; I11.0 Hypertensive heart disease with heart failure; I50.9 Heart failure, unspecified; E78.5 Hyperlipidemia, unspecified; D64.9 Anemia, unspecified; Z03.818 Encounter for observation for suspected exposure to other biological agents ruled out
CPT/HCPCS: 0241U; 31500; 36415; 71045; 80048; 80076; 82803; 82947; 83735; 84145; 84484; 85025; 86140; 87040; 93005; 94002; 96374; 96375; 99283; 99285; J0171; J2270

== ENCOUNTER → 2024-11-23 08:14 | Outpatient (BNV) | payer MEDICARE, OTHER, SELFPAY | PROVIDERS: Emergency Provider Emergency Medicine; PCP Internal Medicine; Visit Provider Internal Medicine Cardiovascular Disease | DX: I45.9 Conduction disorder, unspecified (principal) | CPT/HCPCS: 93010 ==

== ENCOUNTER → 2024-11-23 08:15 | Outpatient (BNV) | payer MEDICARE, OTHER, SELFPAY | PROVIDERS: Emergency Provider Emergency Medicine; PCP Internal Medicine; Visit Provider Radiology Diagnostic Radiology | DX: Z93.0 Tracheostomy status (principal) | CPT/HCPCS: 71045 ==